=== PATIENT | female | born 1985 | race Caucasian/White ===

== ENCOUNTER 2016-05-12 08:44 | Emergency (ER) | payer OTHER ==
--- NOTE | 2016-05-12 08:54 | ED ---
Abdominal Pain HPI - General Stated Complaint: Abd Pain Time Seen by Provider: 05/12/16 08:49 Source: patient, EMS, RN notes reviewed Mode of arrival: EMS Limitations: no limitations - History of Present Illness Initial Comments: 31-year-old female presents emergency Department with chief complaint of abdominal pain. Patient is brought to emergency department via EMS. Patient was given 25 mics of fentanyl prior arrival. Patient states she has left-sided abdominal pain. Patient states she's had a prior cholecystectomy. Patient denies any chance . Denies any dysuria, hematuria. Patient states that nothing to suspect pain feel better. States it's worse she presses on the area. Patient has no history of colitis, IBS or IBD or diverticulitis. Patient denies any melena or hematochezia. Denies hematemesis coffee-ground - Related Data Home Medications Medication Instructions Recorded Confirmed Acetaminophen Tab [Tylenol Tab] 650 mg PO Q4H PRN 05/12/16 05/12/16 Allergies Allergy/AdvReac Type Severity Reaction Status Date / Time morphine AdvReac Intermediate Rash/Hives Verified 05/12/16 08:58 Review of Systems ROS Statement: Those systems with pertinent positive or pertinent negative responses have been documented in the HPI. ROS Other: All systems not noted in ROS Statement are negative. Past Medical History Additional Past Medical History / Comment(s): Other HX: Hep C, sciatica, MRSA left arm 2014, heroin abuse History of Any Multi-Drug Resistant Organisms: MRSA Date of last positivie culture/infection: 05/06/2014 MDRO Source:: Left Elbow Past Surgical History: Cholecystectomy Past Anesthesia/Blood Transfusion Reactions: No Reported Reaction Additional Past Anesthesia/Blood Transfusion Reaction / Comment(s): Pt states she has never recieved blood. Past Psychological History: Anxiety, Depression Additional Psychological History / Comment(s): PT. ADMITS TO BEING DEPRESSED, DEINES ANY SUICIDAL IDEATIONS Smoking Status: Current every day smoker Past Alcohol Use History: None Reported Additional Past Alcohol Use History / Comment(s): Pt lives alone in an apartment. She states she is normally self-sufficient. 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 Past Drug Use History: Heroin, IV Drug Use, Marijuana, Methamphetamine, Opiates Additional Drug Use History / Comment(s): PT. DENIED DRUG USE TO ME WHEN I ASKED DURING HER ASSESSMENT, HOWEVER, PT. TESTED POSITIVE FOR OPIATES, BARBITUATES, AMPHETAMINES, METHAMPHETAMINES, AND MARIJUANA - Past Family History Father Additional Family Medical History / Comment(s): Father is an alcoholic. Mother Additional Family Medical History / Comment(s): Mother is an alcoholic General Exam General appearance: alert, in no apparent distress Head exam: Present: atraumatic, normocephalic, normal inspection Respiratory exam: Present: normal lung sounds bilaterally. Absent: respiratory distress, wheezes, rales, rhonchi, stridor Cardiovascular Exam: Present: regular rate, normal rhythm, normal heart sounds. Absent: systolic murmur, diastolic murmur, rubs, gallop, clicks GI/Abdominal exam: Present: soft, tenderness (Mild to moderate tenderness left side of the abdomen), normal bowel sounds. Absent: distended, guarding, rebound , rigid Back exam: Absent: CVA tenderness (R), CVA tenderness (L) Skin exam: Present: warm, dry, intact, normal color. Absent: rash Course Vital Signs 05/12/16 08:51 Temperature 98.1 F Pulse Rate 44 L Respiratory 14 Rate Blood Pressure 119/77 O2 Sat by Pulse 97 Oximetry Medical Decision Making - Medical Decision Making 31-year-old female presented for abdominal pain. Patient is requesting to leave AGAINST MEDICAL ADVICE after receiving her pain medication. Patient was given Toradol. Patient advised that she may have a serious medical condition and she still wants to leave - Lab Data Result diagrams: 05/12/16 09:00 Lab Results 05/12/16 05/12/16 05/12/16 Range/Units 09:00 09:00 09:00 WBC 6.0 (3.8-10.6) k/uL RBC 5.24 (3.80-5.40) m/uL Hgb 14.8 (11.4-16.0) gm/dL Hct 44.9 (34.0-46.0) % MCV 85.7 (80.0-100.0) fL MCH 28.2 (25.0-35.0) pg MCHC 33.0 (31.0-37.0) g/dL RDW 14.9 (11.5-15.5) % Plt Count 221 (150-450) k/uL Neutrophils % 78 % Lymphocytes % 14 % Monocytes % 4 % Eosinophils % 1 % Basophils % 0 % Neutrophils # 4.7 (1.3-7.7) k/uL Lymphocytes # 0.8 L (1.0-4.8) k/uL Monocytes # 0.3 (0-1.0) k/uL Eosinophils # 0.1 (0-0.7) k/uL Basophils # 0.0 (0-0.2) k/uL Urine Color Yellow Urine Appearance Turbid H (Clear) Urine pH 8.5 H (5.0-8.0) Ur Specific [place] 1.024 (1.001-1.035) Urine Protein 2+ H (Negative) Urine Glucose (UA) Negative (Negative) Urine Ketones 1+ H (Negative) Urine Blood Negative (Negative) Urine Nitrate Negative (Negative) Urine Bilirubin Negative (Negative) Urine Urobilinogen 6.0 (<2.0) mg/dL Ur Leukocyte Esterase Negative (Negative) Urine WBC 3 (0-5) /hpf Ur Squamous Epith Cells 6 H (0-4) /hpf Amorphous Sediment Few H (None) /hpf Urine Mucus Moderate H (None) /hpf Urine HCG, Qual Not Detected (Not Detectd) Disposition Clinical Impression: Abdominal pain Disposition: Left Against Medical Advice
[2016-05-12 08:57] VITALS: TEMP 98.1
[2016-05-12] MEDS: SODIUM CHLORIDE 0.9% 1,000 ML IV STA (09:04)
[2016-05-12 09:08] LABS: Basophils % (A) 0 %; CH 28.2; Eosinophils # (A) 0.1 k/uL (0-0.7); Eosinophils % (A) 1 %; HCT 44.9 % (34.0-46.0); HDW 3.12; HGB 14.8 gm/dL (11.4-16.0); Luc # (Auto) 0.11; Luc % (Auto) 2; Lymphocytes # (A) 0.8 k/uL (1.0-4.8); Lymphocytes % (A) 14 %; MCH 28.2 pg (25.0-35.0); MCV 85.7 fL (80.0-100.0); Mean Platelet Volume 9.6; Monocytes # (A) 0.3 k/uL (0-1.0); Monocytes % (A) 4 %; Neutrophils # (A) 4.7 k/uL (1.3-7.7); Neutrophils % (A) 78 %; RBC 5.24 m/uL (3.80-5.40); RDW 14.9 % (11.5-15.5); WBC (Perox) 6.06
[2016-05-12 09:14] LABS: Amorphous Sediment,Urine Few /hpf; Appearance,Urine Turbid (Clear); Bilirubin,Urine Negative (Negative); Glucose,Urine (UA) Negative (Negative); Ketones,Urine 1+ (Negative); Leukocyte Esterase,Urine Negative (Negative); Mucus,Urine Moderate /hpf; Nitrite,Urine Negative (Negative); PH, Urine 8.5 (5.0-8.0); Particle Count 28634; Protein,Urine 2+ (Negative); Specific Gravity,Urine 1.024 (1.001-1.035); Squamous Epithelial Cell,Urine 6 /hpf (0-4); UA Billing (MACRO vs. MICRO) MICRO; WBC,Urine 3 /hpf (0-5)
[2016-05-12] MEDS: KETOROLAC 30 MG/ML 1 ML VIAL IVP STA (09:17)
[2016-05-12 09:26] VITALS: BP 120/72; PULSE 74; RESP 17
== END 2016-05-12 09:25 | disposition left against medical advice (07) ==
LOC: EC 08:44
DX: R10.9 Unspecified abdominal pain (principal); F17.200 Nicotine dependence, unspecified, uncomplicated; F11.90 Opioid use, unspecified, uncomplicated; F12.90 Cannabis use, unspecified, uncomplicated; F15.90 Other stimulant use, unspecified, uncomplicated; F13.90 Sedative, hypnotic, or anxiolytic use, unspecified, uncomplicated; Z88.5 Allergy status to narcotic agent
CPT/HCPCS: 99284; 96374; 85025; 81001; 81025; J1885

== ENCOUNTER 2016-05-30 19:33 | Emergency (ER) | payer OTHER ==
[2016-05-30 19:43] VITALS: BP 98/53; PULSE 68; RESP 16; TEMP 97.6
[2016-05-30] MEDS ORDERED: ONDANSETRON 4 MG/2 ML VIAL IVP STA (20:04)
[2016-05-30] MEDS ORDERED: SODIUM CHLORIDE 0.9% 1,000 ML IV ONE (20:04)
[2016-05-30] MEDS ORDERED: KETOROLAC 30 MG/ML 1 ML VIAL IVP STA (20:04)
--- NOTE | 2016-05-30 20:07 | ED ---
General Adult HPI - General Chief complaint: Nausea/Vomiting/Diarrhea Stated complaint: abd pain Time Seen by Provider: 05/30/16 19:49 Source: patient, EMS, RN notes reviewed Mode of arrival: ambulatory - History of Present Illness Initial comments: Patient is a 31-year-old [employer] chief complaint of 1 afternoon of her tractable vomiting. Patient reports that other coworkers have had similar symptoms. Patient reports that she had be seen in the emergency room in order to get a work note. Patient reports that she has some left-sided abdominal pain. She denies any sick past medical history. She states that she just finished her last menstrual period today. She states that she's had no diarrhea, fever or chills. She works that she's not been able old any fluid down. She denies any dysuria, hematuria or vaginal discharge. - Related Data Previous Rx's Medication Instructions Recorded Dicyclomine [Bentyl] 10 mg PO TID #12 capsule 05/30/16 Ondansetron [Zofran] 4 mg PO Q8HR PRN #8 tab 05/30/16 Allergies Allergy/AdvReac Type Severity Reaction Status Date / Time morphine AdvReac Intermediate Rash/Hives Verified 05/30/16 19:59 Review of Systems ROS Statement: Those systems with pertinent positive or pertinent negative responses have been documented in the HPI. ROS Other: All systems not noted in ROS Statement are negative. Past Medical History Past Medical History: No Reported History Additional Past Medical History / Comment(s): Other HX: Hep C, sciatica, MRSA left arm 2014, heroin abuse History of Any Multi-Drug Resistant Organisms: MRSA Date of last positivie culture/infection: 05/06/2014 MDRO Source:: Left Elbow Past Surgical History: Cholecystectomy Past Anesthesia/Blood Transfusion Reactions: No Reported Reaction Additional Past Anesthesia/Blood Transfusion Reaction / Comment(s): Pt states she has never recieved blood. Past Psychological History: Anxiety, Depression Additional Psychological History / Comment(s): PT. ADMITS TO BEING DEPRESSED, DEINES ANY SUICIDAL IDEATIONS Smoking Status: Current every day smoker Past Alcohol Use History: None Reported Additional Past Alcohol Use History / Comment(s): Pt lives alone in an apartment. She states she is normally self-sufficient. 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 Past Drug Use History: Heroin, IV Drug Use, Marijuana, Methamphetamine, Opiates Additional Drug Use History / Comment(s): PT. DENIED DRUG USE TO ME WHEN I ASKED DURING HER ASSESSMENT, HOWEVER, PT. TESTED POSITIVE FOR OPIATES, BARBITUATES, AMPHETAMINES, METHAMPHETAMINES, AND MARIJUANA - Past Family History Father Additional Family Medical History / Comment(s): Father is an alcoholic. Mother Additional Family Medical History / Comment(s): Mother is an alcoholic General Exam - General Exam Comments Initial Comments: Dia is a well-appearing 31-year-old female. She is not could be in any acute distress. General appearance: alert, in no apparent distress Head exam: Present: atraumatic, normocephalic, normal inspection Eye exam: Present: normal appearance, PERRL, EOMI. Absent: scleral icterus, conjunctival injection, periorbital swelling ENT exam: Present: normal exam, mucous membranes moist Neck exam: Present: normal inspection. Absent: tenderness, meningismus, lymphadenopathy Respiratory exam: Present: normal lung sounds bilaterally. Absent: respiratory distress, wheezes, rales, rhonchi, stridor Cardiovascular Exam: Present: regular rate, normal rhythm, normal heart sounds. Absent: systolic murmur, diastolic murmur, rubs, gallop, clicks GI/Abdominal exam: Present: soft, tenderness (Left upper quadrant tenderness.), normal bowel sounds. Absent: distended, guarding, rebound, rigid Extremities exam: Present: normal inspection, full ROM, normal capillary refill. Absent: tenderness, pedal edema, joint swelling, calf tenderness Back exam: Present: normal inspection, full ROM Neurological exam: Present: alert, oriented X3, CN II-XII intact Psychiatric exam: Present: normal affect, normal mood Skin exam: Present: warm, dry, intact, normal color. Absent: rash Course Vital Signs 05/30/16 19:39 Temperature 97.6 F Pulse Rate 68 Respiratory 16 Rate Blood Pressure 98/53 O2 Sat by Pulse 96 Oximetry Medical Decision Making - Medical Decision Making Patient is a 31 year old woman arriving via EMS with left upper abdominal pain and vomiting for one afternoon. Patient given nasuea medication and IV fluids. Labs are normal. KUB is normal, no signs of ileus or bowel obstruction. Patient pain was managed with toradol, and zofran. Patient will be discharged home with nausea medication. Patient likely has viral gastrenteritis, as other coworkers have it. She was given a note for work. Return parameters discussed. - Lab Data Result diagrams: 05/30/16 20:15 05/30/16 20:15 Lab Results 05/30/16 05/30/16 Range/Units 20:15 20:15 WBC 7.4 (3.8-10.6) k/uL RBC 5.03 (3.80-5.40) m/uL Hgb 14.1 (11.4-16.0) gm/dL Hct 43.5 (34.0-46.0) % MCV 86.5 (80.0-100.0) fL MCH 28.1 (25.0-35.0) pg MCHC 32.5 (31.0-37.0) g/dL RDW 14.8 (11.5-15.5) % Plt Count 191 (150-450) k/uL Neutrophils % 72 % Lymphocytes % 19 % Monocytes % 6 % Eosinophils % 1 % Basophils % 0 % Neutrophils # 5.3 (1.3-7.7) k/uL Lymphocytes # 1.4 (1.0-4.8) k/uL Monocytes # 0.4 (0-1.0) k/uL Eosinophils # 0.1 (0-0.7) k/uL Basophils # 0.0 (0-0.2) k/uL Sodium 140 (137-145) mmol/L Potassium 4.3 (3.5-5.1) mmol/L Chloride 107 (98-107) mmol/L Carbon Dioxide 24 (22-30) mmol/L Anion Gap 9 mmol/L BUN 7 (7-17) mg/dL Creatinine 0.40 L (0.52-1.04) mg/dL Est GFR (MDRD) Af Amer >60 (>60 ml/min/1.73 sqM) Est GFR (MDRD) Non-Af >60 (>60 ml/min/1.73 sqM) Glucose 96 (74-99) mg/dL Calcium 9.0 (8.4-10.2) mg/dL Total Bilirubin 0.7 (0.2-1.3) mg/dL AST 26 (14-36) U/L ALT 37 (9-52) U/L Alkaline Phosphatase 57 (38-126) U/L Total Protein 7.2 (6.3-8.2) g/dL Albumin 4.0 (3.5-5.0) g/dL Amylase <30 L (30-110) U/L Lipase 35 (23-300) U/L - Radiology Data Radiology results: report reviewed KUB is negative for any acute results. Disposition Clinical Impression: Nausea & vomiting Disposition: HOME SELF-CARE Condition: Good Instructions: Acute Nausea and Vomiting (ED) Additional Instructions: Patient started to rest, increase fluids and take nausea medication as directed. Return to the EC if any alarming signs or symptoms occur. Follow-up with primary care provider as well. Prescriptions: Dicyclomine [Bentyl] 10 mg PO TID #12 capsule Ondansetron [Zofran] 4 mg PO Q8HR PRN #8 tab PRN Reason: Nausea And Vomiting Referrals: None,Stated [Primary Care Provider] - 1-2 days Time of Disposition: 21:26
--- NOTE | 2016-05-30 20:30 | XR ---
EXAMINATION TYPE: XR KUB DATE OF EXAM: 05/30/2016 8:24 PM COMPARISON: 05/15/2015 HISTORY: Abdominal pain TECHNIQUE: 2 views FINDINGS: There is no sign of intestinal obstruction or pneumoperitoneum. There are clips from cholec ystectomy. Lung bases are clear. There are no pathologic calcifications over the kidneys. Fecal patte rn is normal. IMPRESSION: Nonacute abdomen. No change.
[2016-05-30 20:39] LABS: Basophils % (A) 0 %; CH 28.9; CHCM 33.6; Eosinophils # (A) 0.1 k/uL (0-0.7); Eosinophils % (A) 1 %; HCT 43.5 % (34.0-46.0); HDW 2.65; HGB 14.1 gm/dL (11.4-16.0); Luc # (Auto) 0.15; Luc % (Auto) 2; Lymphocytes # (A) 1.4 k/uL (1.0-4.8); Lymphocytes % (A) 19 %; MCH 28.1 pg (25.0-35.0); MCHC 32.5 g/dL (31.0-37.0); MCV 86.5 fL (80.0-100.0); Mean Platelet Volume 9.9; Monocytes # (A) 0.4 k/uL (0-1.0); Monocytes % (A) 6 %; Neutrophils # (A) 5.3 k/uL (1.3-7.7); Neutrophils % (A) 72 %; RBC 5.03 m/uL (3.80-5.40); RDW 14.8 % (11.5-15.5); WBC 7.4 k/uL (3.8-10.6); WBC (Perox) 7.46
[2016-05-30 20:55] LABS: ALT 37 U/L (9-52); AST 26 U/L (14-36); Alkaline Phosphatase 57 U/L (38-126); Amylase <30 U/L (30-110); Anion Gap 9 mmol/L; Blood Urea Nitrogen 7 mg/dL (7-17); Carbon Dioxide 24 mmol/L (22-30); Chloride 107 mmol/L (98-107); Glucose 96 mg/dL (74-99); Non-African American GFR(MDRD) >60 (>60 ml/min/1.73 sqM); Sodium 140 mmol/L (137-145); Total Bilirubin 0.7 mg/dL (0.2-1.3); Total Protein 7.2 g/dL (6.3-8.2)
[2016-05-30 21:07] LABS: Potassium 4.3 mmol/L (3.5-5.1)
[2016-05-30] MEDS ORDERED: ACETAMINOPHEN IV (For NPO) 1,000 MG in EMPTY BAG 1 BAG IVPB STA (21:22)
[2016-05-30] MEDS ORDERED: DICYCLOMINE 20 MG TAB PO STA (21:22)
== END 2016-05-30 22:32 | disposition home or self-care (01) ==
LOC: EC 19:33
DX: R11.2 Nausea with vomiting, unspecified (principal); R10.12 Left upper quadrant pain; F17.200 Nicotine dependence, unspecified, uncomplicated; Z88.5 Allergy status to narcotic agent; Z86.14 Personal history of Methicillin resistant Staphylococcus aureus infection
CPT/HCPCS: 99284; 96374; 96375; 36415; 80053; 82150; 83690; 85025; 74000; J2405; J1885

== ENCOUNTER 2016-09-13 18:09 | Emergency (ER) | payer OTHER ==
[2016-09-13 18:21] VITALS: BP 116/55; PULSE 108; RESP 20; TEMP 98
[2016-09-13] MEDS ORDERED: ONDANSETRON 4 MG ODT STARTER PACK 2 TAB BTL PO STA (19:43)
--- NOTE | 2016-09-13 19:47 | ED ---
Abdominal Pain HPI - General Chief Complaint: Abdominal Pain Stated Complaint: Vomiting Time Seen by Provider: 09/13/16 19:37 Source: patient, RN notes reviewed, old records reviewed Mode of arrival: ambulatory Limitations: no limitations - History of Present Illness Initial Comments: This is a 31-year-old female presents emergency Department with chief complaint of vomiting in the couple episodes of diarrhea yesterday. She reports that everyone in her household have similar symptoms. She reports that she is feeling somewhat better today. She reports that she is here because she is a [employer] her job and needs a note for work. Patient states that she has no specific abdominal pain denies any fever or chills. Denies any chest pain shortness of breath, blood in her stools or blood in her vomit. She reports last time she vomited was approximately 6 hours ago. She reports that she has been able to tolerate some food since then. She states that she's had a history of cholecystectomy. No other significant injury, her past medical history. Patient does have history of marijuana and heroin use. - Related Data Previous Rx's Medication Instructions Recorded Dicyclomine [Bentyl] 10 mg PO TID #12 capsule 05/30/16 Ondansetron [Zofran] 4 mg PO Q8HR PRN #8 tab 05/30/16 Ondansetron Odt [Zofran Odt] 4 mg PO Q8HR PRN #12 tab 09/13/16 Allergies Allergy/AdvReac Type Severity Reaction Status Date / Time morphine AdvReac Intermediate Rash/Hives Verified 05/30/16 19:59 Review of Systems ROS Statement: Those systems with pertinent positive or pertinent negative responses have been documented in the HPI. ROS Other: All systems not noted in ROS Statement are negative. Past Medical History Past Medical History: No Reported History Additional Past Medical History / Comment(s): Other HX: Hep C, sciatica, MRSA left arm 2014, heroin abuse History of Any Multi-Drug Resistant Organisms: MRSA Date of last positivie culture/infection: 05/06/2014 MDRO Source:: Left Elbow Past Surgical History: Cholecystectomy Past Anesthesia/Blood Transfusion Reactions: No Reported Reaction Additional Past Anesthesia/Blood Transfusion Reaction / Comment(s): Pt states she has never recieved blood. Past Psychological History: Anxiety, Depression Additional Psychological History / Comment(s): PT. ADMITS TO BEING DEPRESSED, DEINES ANY SUICIDAL IDEATIONS Smoking Status: Current every day smoker Past Alcohol Use History: None Reported Additional Past Alcohol Use History / Comment(s): Pt lives alone in an apartment. She states she is normally self-sufficient. 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 Past Drug Use History: Heroin, IV Drug Use, Marijuana, Methamphetamine, Opiates Additional Drug Use History / Comment(s): PT. DENIED DRUG USE TO ME WHEN I ASKED DURING HER ASSESSMENT, HOWEVER, PT. TESTED POSITIVE FOR OPIATES, BARBITUATES, AMPHETAMINES, METHAMPHETAMINES, AND MARIJUANA - Past Family History Father Additional Family Medical History / Comment(s): Father is an alcoholic. Mother Additional Family Medical History / Comment(s): Mother is an alcoholic General Exam - General Exam Comments Initial Comments: Well-appearing 31-year-old female. No acute distress. Limitations: no limitations General appearance: alert, in no apparent distress Head exam: Present: atraumatic, normocephalic, normal inspection Eye exam: Present: normal appearance, PERRL, EOMI. Absent: scleral icterus, conjunctival injection, periorbital swelling ENT exam: Present: normal exam, mucous membranes moist Neck exam: Present: normal inspection. Absent: tenderness, meningismus, lymphadenopathy Respiratory exam: Present: normal lung sounds bilaterally. Absent: respiratory distress, wheezes, rales, rhonchi, stridor Cardiovascular Exam: Present: regular rate, normal rhythm, normal heart sounds. Absent: systolic murmur, diastolic murmur, rubs, gallop, clicks GI/Abdominal exam: Present: soft, normal bowel sounds. Absent: distended, tenderness, guarding, rebound, rigid Extremities exam: Present: normal inspection, full ROM, normal capillary refill. Absent: tenderness, pedal edema, joint swelling, calf tenderness Back exam: Present: normal inspection Neurological exam: Present: alert, oriented X3, CN II-XII intact Psychiatric exam: Present: normal affect, normal mood Skin exam: Present: warm, dry, intact, normal color. Absent: rash Course Vital Signs 09/13/16 18:20 Temperature 98.0 F Pulse Rate 108 H Respiratory 20 Rate Blood Pressure 116/55 O2 Sat by Pulse 99 Oximetry Medical Decision Making - Medical Decision Making This is a 31-year-old female presenting to emergency Department chief complaint of multiple toes of vomiting yesterday and today as well as a couple episodes of diarrhea. She reports that her whole family has similar symptoms. I discussed with the patient had like to further evaluate her symptoms and give her IV fluids and lab work. Patient reports that she does not want this and refuses it. Patient reports that she does want to try some nausea medication and to go home. She is concerned that she might was her job if she does admit note for work. Patient only a note for work for today and tomorrow. Patient understands treatment plan will comply. Return parameters were discussed. Disposition Clinical Impression: Gastroenteritis Disposition: HOME SELF-CARE Condition: Good Instructions: Gastroenteritis (ED) Additional Instructions: Patient advised to rest, increase fluids. Take nausea medication as prescribed. Follow-up with her primary care provider Or 3 days or return to emergency department if any alarming signs or symptoms occur. Prescriptions: Ondansetron Odt [Zofran Odt] 4 mg PO Q8HR PRN #12 tab PRN Reason: Nausea Referrals: Eloisa Sutton MD [STAFF PHYSICIAN] - 1-2 days Time of Disposition: 19:46
== END 2016-09-13 20:04 | disposition home or self-care (01) ==
LOC: EC 18:09
DX: K52.9 Noninfective gastroenteritis and colitis, unspecified (principal); F17.200 Nicotine dependence, unspecified, uncomplicated; Z88.5 Allergy status to narcotic agent; Z90.49 Acquired absence of other specified parts of digestive tract
CPT/HCPCS: 99284; S0119

== ENCOUNTER 2016-09-21 14:56 | Emergency (ER) | payer OTHER ==
[2016-09-21 15:04] VITALS: BP 133/93; PULSE 113; RESP 18; TEMP 97.9
--- NOTE | 2016-09-21 15:08 | ED ---
General Adult HPI - General Chief complaint: Overdose Stated complaint: Over dose Time Seen by Provider: 09/21/16 15:00 Source: patient, EMS, RN notes reviewed Mode of arrival: EMS Limitations: no limitations - History of Present Illness Initial comments: this is a 31-year-old female presents emergency department after being found by someone unresponsive. EMS arrived look like the patient was doing heroin they gave her Narcan she immediately became awake and alert and oriented 3. Patient didn't want to be seen but she agreed to talking to me and it could be evaluated. Patient states she did heroin that had some been only extend and she feels completely fine now patient is alert and oriented 3 she has no points pain no complaints of any redness or lesions from shooting up. Patient denies any recent fevers patient denies any difficulty breathing shortness of breath patient denies any headache patient denies numbness weeks. Patient denies abdominal pain patient denies nausea vomiting diarrhea. - Related Data Previous Rx's Medication Instructions Recorded Dicyclomine [Bentyl] 10 mg PO TID #12 capsule 05/30/16 Ondansetron [Zofran] 4 mg PO Q8HR PRN #8 tab 05/30/16 Ondansetron Odt [Zofran Odt] 4 mg PO Q8HR PRN #12 tab 09/13/16 Allergies Allergy/AdvReac Type Severity Reaction Status Date / Time morphine AdvReac Intermediate Rash/Hives Verified 09/21/16 15:03 Review of Systems ROS Statement: Those systems with pertinent positive or pertinent negative responses have been documented in the HPI. ROS Other: All systems not noted in ROS Statement are negative. Past Medical History Past Medical History: No Reported History Additional Past Medical History / Comment(s): Other HX: Hep C, sciatica, MRSA left arm 2014, heroin abuse History of Any Multi-Drug Resistant Organisms: MRSA Date of last positivie culture/infection: 05/06/2014 MDRO Source:: Left Elbow Past Surgical History: Cholecystectomy Past Anesthesia/Blood Transfusion Reactions: No Reported Reaction Additional Past Anesthesia/Blood Transfusion Reaction / Comment(s): Pt states she has never recieved blood. Past Psychological History: Anxiety, Depression Additional Psychological History / Comment(s): PT. ADMITS TO BEING DEPRESSED, DEINES ANY SUICIDAL IDEATIONS Smoking Status: Current every day smoker Past Alcohol Use History: None Reported Additional Past Alcohol Use History / Comment(s): Pt lives alone in an apartment. She states she is normally self-sufficient. 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 Past Drug Use History: Heroin, IV Drug Use, Marijuana, Methamphetamine, Opiates Additional Drug Use History / Comment(s): PT. DENIED DRUG USE TO ME WHEN I ASKED DURING HER ASSESSMENT, HOWEVER, PT. TESTED POSITIVE FOR OPIATES, BARBITUATES, AMPHETAMINES, METHAMPHETAMINES, AND MARIJUANA - Past Family History Father Additional Family Medical History / Comment(s): Father is an alcoholic. Mother Additional Family Medical History / Comment(s): Mother is an alcoholic General Exam - General Exam Comments Initial Comments: GENERAL: Patient is well-developed and well-nourished. Patient is nontoxic and well- hydrated and is in no acute distress. ENT: Neck is soft and supple. No significant lymphadenopathy is noted. Oropharynx is clear. Moist mucous membranes. Neck has full range of motion without eliciting any pain. EYES: The sclera were anicteric and conjunctiva were pink and moist. Extraocular movements were intact and pupils were equal round and reactive to light. Eyelids were unremarkable. PULMONARY: Unlabored respirations. Good breath sounds bilaterally. No audible rales rhonchi or wheezing was noted. CARDIOVASCULAR: There is a regular rate and rhythm without any murmurs gallops or rubs. ABDOMEN: Soft and nontender with normal bowel sounds. SKIN: Patient has multiple scars on both arms from injecting none of which look infected at this time. NEUROLOGIC: Patient is alert and oriented x3. Cranial nerves II through XII are grossly intact. Motor and sensory are also intact. Normal speech, volume and content. Symmetrical smile. MUSCULOSKELETAL: Normal extremities with adequate strength and full range of motion. LYMPHATICS: No significant lymphadenopathy is noted PSYCHIATRIC: Normal psychiatric evaluation. Limitations: no limitations Course Vital Signs 09/21/16 15:01 Temperature 97.9 F Pulse Rate 113 H Respiratory 18 Rate Blood Pressure 133/93 O2 Sat by Pulse 98 Oximetry Medical Decision Making - Medical Decision Making I recommended the patient stay in the emergency department for a few hours to be evaluated and make sure that whatever drugs she took did not have long lasting effects. Patient refused she signed an AMA I told the patient the risks she still refused. Disposition Clinical Impression: Heroin abuse, Narcotic overdose Disposition: Left Against Medical Advice Referrals: None,Stated [Primary Care Provider] - 1-2 days Time of Disposition: 15:08
== END 2016-09-21 15:18 | disposition left against medical advice (07) ==
LOC: EC 14:56
DX: T40.601A Poisoning by unspecified narcotics, accidental (unintentional), initial encounter (principal); F11.10 Opioid abuse, uncomplicated; F17.200 Nicotine dependence, unspecified, uncomplicated; Z88.5 Allergy status to narcotic agent
CPT/HCPCS: 99284

== ENCOUNTER 2016-10-24 23:05 | Inpatient (IN) | payer MEDICAID, OTHER ==
--- NOTE | 2016-10-24 23:36 | ED ---
Psych HPI - General Chief Complaint: Psychiatric Symptoms Stated Complaint: suicidal Time Seen by Provider: 10/24/16 23:19 Source: patient Mode of arrival: ambulatory - History of Present Illness Initial Comments: This patient is a 31-year-old woman who presents to be evaluated for suicidal ideation. The patient states that she recently had a breakup, and that she also recently lost her children. Her mood has been worsening and now she is having thoughts of suicide. Patient denies history of previous psychiatric care. She denies taking any action tian SAM Complaint: suicidal ideation, feels depressed -: days(s) Associated Psychiatric Symptoms: suicidal ideation History of same: No Quality: getting worse Improves With: none Worsens With: none - Related Data Allergies Allergy/AdvReac Type Severity Reaction Status Date / Time morphine Allergy Unknown Rash/Hives Verified 10/24/16 23:29 Review of Systems ROS Statement: Those systems with pertinent positive or pertinent negative responses have been documented in the HPI. ROS Other: All systems not noted in ROS Statement are negative. Constitutional: Denies: fever, chills Eyes: Denies: vision change Respiratory: Denies: cough, dyspnea Cardiovascular: Denies: chest pain, syncope Gastrointestinal: Denies: abdominal pain, vomiting, diarrhea Genitourinary: Denies: dysuria, hematuria Musculoskeletal: Denies: back pain Skin: Denies: lesions Neurological: Denies: headache Psychiatric: Reports: depression, suicidal thoughts. Denies: auditory hallucinations, visual hallucinations, homicidal thoughts Past Medical History Past Medical History: No Reported History Additional Past Medical History / Comment(s): Other HX: Hep C, sciatica, MRSA left arm 2014, heroin abuse History of Any Multi-Drug Resistant Organisms: MRSA Date of last positivie culture/infection: 05/06/2014 MDRO Source:: Left Elbow Past Surgical History: Cholecystectomy Additional Past Surgical History / Comment(s): needle removed from right arm 2012 Past Anesthesia/Blood Transfusion Reactions: No Reported Reaction Additional Past Anesthesia/Blood Transfusion Reaction / Comment(s): Pt states she has never recieved blood. Past Psychological History: Anxiety, Depression Smoking Status: Current every day smoker Past Alcohol Use History: None Reported Past Drug Use History: Heroin, IV Drug Use, Marijuana, Methamphetamine, Opiates - Past Family History Father Additional Family Medical History / Comment(s): Father is an alcoholic. Mother Additional Family Medical History / Comment(s): Mother is an alcoholic General Exam Limitations: no limitations General appearance: alert, in no apparent distress, anxious Head exam: Present: atraumatic, normocephalic Eye exam: Present: normal appearance. Absent: scleral icterus, conjunctival injection Respiratory exam: Present: normal lung sounds bilaterally. Absent: respiratory distress, wheezes, rales, rhonchi, stridor Cardiovascular Exam: Present: regular rate, normal rhythm, normal heart sounds. Absent: systolic murmur, diastolic murmur, rubs, gallop GI/Abdominal exam: Present: soft. Absent: distended, tenderness, guarding, rebound, rigid Extremities exam: Present: normal inspection, normal capillary refill Neurological exam: Present: alert, normal gait Psychiatric exam: Present: depressed, anxious, suicidal ideation. Absent: flat affect, manic, homicidal ideation Skin exam: Present: warm, dry, intact, normal color. Absent: rash Course Vital Signs 10/24/16 23:07 Temperature 97.7 F Pulse Rate 85 Respiratory 16 Rate Blood Pressure 119/71 O2 Sat by Pulse 98 Oximetry Disposition Referrals: Rosamaria Trujillo MD [Primary Care Provider] - 1-2 days
[2016-10-25] MEDS ORDERED: METHADONE 10 MG TAB PO STA (00:43)
[2016-10-25] MEDS ORDERED: ACETAMINOPHEN TAB 325 MG TAB PO PRN (02:53)
[2016-10-25] MEDS ORDERED: MAGNESIUM HYDROXIDE 2,400 MG/10 ML CUP PO PRN (02:53)
[2016-10-25] MEDS ORDERED: MAG HYDROX/AL HYDROX/SIMETH 30 ML CUP PO PRN (02:53)
[2016-10-25] MEDS ORDERED: ZIPRASIDONE 20 MG VIAL IM PRN (02:53)
[2016-10-25] MEDS ORDERED: LOPERAMIDE 2 MG CAP PO PRN (02:56)
[2016-10-25 03:05] LABS: Appearance,Urine Cloudy (Clear); Bilirubin,Urine Negative (Negative); Calcium Oxalate Crystals,Urine Few /hpf; Glucose,Urine (UA) Negative (Negative); Ketones,Urine Negative (Negative); Leukocyte Esterase,Urine Negative (Negative); Mucus,Urine Few /hpf; Nitrite,Urine Negative (Negative); Particle Count 4619; Protein,Urine Negative (Negative); RBC,Urine 76 /hpf (0-5); Specific Gravity,Urine 1.017 (1.001-1.035); Squamous Epithelial Cell,Urine 5 /hpf (0-4); UA Billing (MACRO vs. MICRO) MICRO; WBC,Urine 3 /hpf (0-5)
[2016-10-25 07:24] LABS: Basophils # (A) 0.1 k/uL (0-0.2); Basophils % (A) 1 %; CH 29.6; CHCM 34.2; Eosinophils # (A) 0.2 k/uL (0-0.7); Eosinophils % (A) 2 %; HCT 42.5 % (34.0-46.0); HDW 2.62; HGB 14.8 gm/dL (11.4-16.0); Luc # (Auto) 0.17; Luc % (Auto) 2; Lymphocytes # (A) 2.5 k/uL (1.0-4.8); Lymphocytes % (A) 30 %; MCH 30.3 pg (25.0-35.0); MCHC 34.7 g/dL (31.0-37.0); MCV 87.2 fL (80.0-100.0); Mean Platelet Volume 9.4; Monocytes # (A) 0.5 k/uL (0-1.0); Monocytes % (A) 6 %; Neutrophils # (A) 4.7 k/uL (1.3-7.7); Neutrophils % (A) 59 %; RBC 4.88 m/uL (3.80-5.40); RDW 13.4 % (11.5-15.5); WBC 8.1 k/uL (3.8-10.6)
[2016-10-25 07:39] LABS: ALT 20 U/L (9-52); AST 13 U/L (14-36); Alkaline Phosphatase 63 U/L (38-126); Anion Gap 8 mmol/L; Blood Urea Nitrogen 11 mg/dL (7-17); Calcium 9.1 mg/dL (8.4-10.2); Carbon Dioxide 23 mmol/L (22-30); Chloride 110 mmol/L (98-107); Glucose 96 mg/dL (74-99); Non-African American GFR(MDRD) >60 (>60 ml/min/1.73 sqM); Potassium 3.8 mmol/L (3.5-5.1); Sodium 141 mmol/L (137-145); Total Bilirubin 0.6 mg/dL (0.2-1.3); Total Protein 6.8 g/dL (6.3-8.2)
[2016-10-25] MEDS: NICOTINE 14MG/24HR PATCH TRANSDERM SCH (08:11)
--- NOTE | 2016-10-25 10:02 | P.HP ---
Psychiatric H&P - . H&P Date: 10/25/16 History & Physical: DATE OF SERVICE: 10/25/2016 IDENTIFYING DATA: This patient is a 31-year-old single female who was admitted to the mental health unit through emergency room. HISTORY OF PRESENT ILLNESS: The patient came to the emergency room complaining of suicidal ideation. Patient reported that if she was not admitted that she would go out and overdose on heroin. EPS nurse noted that she had a needle, and that she has a long history of heroin use. Patient reported that she had a recent breakup with her boyfriend which triggered the suicidal ideation. He is unhappy that she is using heroin again, he has stopped for 6 months, after senior care time. Today patient was lying in bed did not calm when she was overhead page, had to be encouraged to get out of bed. Patient states that she is not suicidal, that it was just a short period after finding out that her boyfriend broke up with her. She also has had a number of stressors including the loss of her children. Patient is known to the emergency room coming in with opiate overdose receiving Narcan then leaving AMA. Patient denies feeling depressed, anxious, or suicidal. Patient denies episodes of brynn or hypomania, denies thinking that she has super perla, denies hearing voices . She denies ever having any mental health treatment other than frequent admissions to rehab units for detox. Patient requests that she be discharged today. PAST PSYCHIATRIC HISTORY: Denies denies inpatient hospitalizations, denies outpatient care, denies ever seeing a psychiatrist. Reports she takes Xanax from her primary care provider and she uses it to help with opiate withdrawal. PAST MEDICAL HISTORY: Denies. States that she is taking gabapentin 800 mg 3 times a day, and Xanax. Patient informed that she had taken her last Xanax several days ago. ALLERGIES: Morphine. CHEMICAL DEPENDENCY HISTORY: Patient reports that she began using opiates at the age of 25, states that she had a 3 year period of sobriety from opiates when she was in a methadone program at [facility]. States now that she can no longer go back to [facility], she was just in there and left early. She would not quantify the number of rehabs that she's been in but on another note it appears that she's been in at least 10-15 times. FAMILY PSYCHIATRIC HISTORY: She denies any family history however notes that her father does not leave the house, and it's been that way for him many years. FAMILY CHEMICAL DEPENDENCY HISTORY: Patient denies. LEGAL HISTORY: Denies. SOCIAL HISTORY: Patient was raised by her mother and father, states she had a good childhood, states she does not have any brothers or sisters. States that she did not graduate from high school due to having her first child 14 years ago. States that she has 2 children age 14 and 7. She is able to visit her 14-year-old daughter who is in the custody of her biological father. She refuses to speak about her 7-year-old who she apparently cannot see. 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 She lives with her father who supports her. MENTAL STATUS EXAM: Patient alert and oriented 3, fair eye contact, fair groomed in street clothing. Speech normal volume, rate and production. Limited responses, brief one word answers. Coherent, logical and goal directed thought process. No BOSSMAN, no FOI. No TB/TW/ TI Denied auditory and visual hallucinations. Denied paranoid ideation, delusions or IOR. Memory grossly intact Cognition average Recalled [3/3 @0; 3/3@5min Mood neutral to euthymic, affect and full range decreased intensity, congruent with mood. Denies suicidal ideation, denies homicidal ideation. Insight none; Judgement impaired by her opiate dependence, but grossly intact . STRENGTHS: Has housing. WEAKNESSES: No insight, poor coping skills. IMPRESSIONS: 31-year-old female with at least a 6 year history of opiate use disorder, severe. Has had multiple ER visits with needing Narcan, and once awake and alert she is signing out AMA. Today there is no suicidal ideation which was the cause of her admission to [facility]. There is no evidence of depression anxiety, psychosis, brynn or hypomania. She is prescribed Xanax for unknown reason but she reports she will use Xanax when she is coming off of heroin Suicidal ideation Opioid use disorder, severe Psychosocial problems PLAN: Continue inpatient psychiatric admission. Suicide checks every 15 minutes. Patient only requests Xanax and gabapentin, will check to see if Emily is on her home medicines and will prescribe while she is here. No benzodiazepines. We'll discuss with hospice social worker as if there is any possibility of a Suboxone clinic/program that she would qualify for. Patient requests to go AMA, informed her we have up to 72 hours to complete our assessment before we either release her or consider a petition which is unlikely. Allergies Allergy/AdvReac Type Severity Reaction Status Date / Time morphine Allergy Unknown Rash/Hives Verified 10/25/16 03:06 Vital Signs Temp 97.5 F L 10/25/16 02:16 Pulse 69 10/25/16 08:14 Resp 16 10/25/16 08:14 BP 103/63 10/25/16 08:14 Pulse Ox 97 10/25/16 02:00 Intake & Output 10/24/16 10/25/16 10/25/16 18:59 06:59 18:59 Weight 51.256 kg Laboratory Last Values WBC 8.1 k/uL (3.8-10.6) 10/25/16 07:06 RBC 4.88 m/uL (3.80-5.40) 10/25/16 07:06 Hgb 14.8 gm/dL (11.4-16.0) 10/25/16 07:06 Hct 42.5 % (34.0-46.0) 10/25/16 07:06 MCV 87.2 fL (80.0-100.0) 10/25/16 07:06 MCH 30.3 pg (25.0-35.0) 10/25/16 07:06 MCHC 34.7 g/dL (31.0-37.0) 10/25/16 07:06 RDW 13.4 % (11.5-15.5) 10/25/16 07:06 Plt Count 185 k/uL (150-450) 10/25/16 07:06 Neutrophils % 59 % 10/25/16 07:06 Lymphocytes % 30 % 10/25/16 07:06 Monocytes % 6 % 10/25/16 07:06 Eosinophils % 2 % 10/25/16 07:06 Basophils % 1 % 10/25/16 07:06 Neutrophils # 4.7 k/uL (1.3-7.7) 10/25/16 07:06 Lymphocytes # 2.5 k/uL (1.0-4.8) 10/25/16 07:06 Monocytes # 0.5 k/uL (0-1.0) 10/25/16 07:06 Eosinophils # 0.2 k/uL (0-0.7) 10/25/16 07:06 Basophils # 0.1 k/uL (0-0.2) 10/25/16 07:06 Sodium 141 mmol/L (137-145) 10/25/16 07:06 Potassium 3.8 mmol/L (3.5-5.1) 10/25/16 07:06 Chloride 110 mmol/L (98-107) H 10/25/16 07:06 Carbon Dioxide 23 mmol/L (22-30) 10/25/16 07:06 Anion Gap 8 mmol/L 10/25/16 07:06 BUN 11 mg/dL (7-17) 10/25/16 07:06 Creatinine 0.54 mg/dL (0.52-1.04) 10/25/16 07:06 Est GFR (MDRD) Af Amer >60 (>60 ml/min/1.73 sqM) 10/25/16 07:06 Est GFR (MDRD) Non-Af >60 (>60 ml/min/1.73 sqM) 10/25/16 07:06 Glucose 96 mg/dL (74-99) 10/25/16 07:06 Calcium 9.1 mg/dL (8.4-10.2) 10/25/16 07:06 Total Bilirubin 0.6 mg/dL (0.2-1.3) 10/25/16 07:06 AST 13 U/L (14-36) L 10/25/16 07:06 ALT 20 U/L (9-52) 10/25/16 07:06 Alkaline Phosphatase 63 U/L (38-126) 10/25/16 07:06 Total Protein 6.8 g/dL (6.3-8.2) 10/25/16 07:06 Albumin 3.9 g/dL (3.5-5.0) 10/25/16 07:06 TSH 0.639 mIU/L (0.465-4.680) 10/25/16 07:06 Urine Color Yellow 10/24/16 23:53 Urine Appearance Cloudy (Clear) H 10/24/16 23:53 Urine pH 6.0 (5.0-8.0) 10/24/16 23:53 Ur Specific [place] 1.017 (1.001-1.035) 10/24/16 23:53 Urine Protein Negative (Negative) 10/24/16 23:53 Urine Glucose (UA) Negative (Negative) 10/24/16 23:53 Urine Ketones Negative (Negative) 10/24/16 23:53 Urine Blood Small (Negative) H 10/24/16 23:53 Urine Nitrite Negative (Negative) 10/24/16 23:53 Urine Bilirubin Negative (Negative) 10/24/16 23:53 Urine Urobilinogen 2.0 mg/dL (<2.0) 10/24/16 23:53 Ur Leukocyte Esterase Negative (Negative) 10/24/16 23:53 Urine RBC 76 /hpf (0-5) H 10/24/16 23:53 Urine WBC 3 /hpf (0-5) 10/24/16 23:53 Ur Squamous Epith Cells 5 /hpf (0-4) H 10/24/16 23:53 Calcium Oxalate Crystal Few /hpf (None) H 10/24/16 23:53 Urine Mucus Few /hpf (None) H 10/24/16 23:53 Urine HCG, Qual Not Detected (Not Detectd) 10/24/16 23:53 Urine Opiates Screen Detected (NotDetected) H 10/24/16 23:53 Ur Oxycodone Screen Not Detected (NotDetected) 10/24/16 23:53 Urine Methadone Screen Not Detected (NotDetected) 10/24/16 23:53 Ur Propoxyphene Screen Not Detected (NotDetected) 10/24/16 23:53 Ur Barbiturates Screen Detected (NotDetected) H 10/24/16 23:53 U Tricyclic Antidepress Not Detected (NotDetected) 10/24/16 23:53 Ur Phencyclidine Scrn Not Detected (NotDetected) 10/24/16 23:53 Ur Amphetamines Screen Not Detected (NotDetected) 10/24/16 23:53 U Methamphetamines Scrn Not Detected (NotDetected) 10/24/16 23:53 U Benzodiazepines Scrn Not Detected (NotDetected) 10/24/16 23:53 Urine Cocaine Screen Not Detected (NotDetected) 10/24/16 23:53 U Marijuana (THC) Screen Detected (NotDetected) H 10/24/16 23:53 10/25/16 09:31
[2016-10-25] MEDS: GABAPENTIN 400 MG CAP PO SCH ×3 (10:06→21:01)
--- NOTE | 2016-10-25 15:27 | P.MDCNMH ---
History of Present Illness H&P Date: 10/25/16 Chief Complaint: Depression, medical management This is a 31-year-old female who does not have a primary care physician. She has a past medical history of hepatitis C, scattered,, MRSA on the left arm, here when abuse as well as marijuana, F and phentermine abuse in the past. Patient states that she has been depressed and suicidal and took heroin yesterday as an overdose. Apparently patient lost parental rights for her son and her boyfriend left her. She states she uses here when because it helps her "stop thinking about stuff." Patient denies any significant wounds at this time. She denies any fever or chills, rashes, nausea or vomiting. 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 Urine drug screen detected opiates, barbiturates, marijuana. HCG was not detected, TSH was 0.639. Urinalysis was cloudy with blood without signs of infection. Patient has been admitted to the mental health unit. Review of Systems All systems: negative Constitutional: Denies chills, Denies fever Eyes: denies blurred vision, denies pain Ears, nose, mouth and throat: Denies headache, Denies sore throat Cardiovascular: Denies chest pain, Denies shortness of breath Respiratory: Denies cough Gastrointestinal: Denies abdominal pain, Denies diarrhea, Denies nausea, Denies vomiting Genitourinary: Denies dysuria, Denies hematuria Musculoskeletal: Denies myalgias Integumentary: Denies pruritus, Denies rash Neurological: Denies numbness, Denies weakness Psychiatric: Reports depression, Reports hopelessness, Reports suicidal ideation , Denies anxiety Endocrine: Denies fatigue, Denies weight change Past Medical History Past Medical History: No Reported History Additional Past Medical History / Comment(s): Other HX: Hep C, sciatica, MRSA left arm 2014, heroin abuse, restless leg syndrome History of Any Multi-Drug Resistant Organisms: MRSA Date of last positivie culture/infection: 05/06/2014 MDRO Source:: Left Elbow Past Surgical History: Cholecystectomy Additional Past Surgical History / Comment(s): needle removed from right arm 2012 Past Anesthesia/Blood Transfusion Reactions: No Reported Reaction Additional Past Anesthesia/Blood Transfusion Reaction / Comment(s): Pt states she has never recieved blood. Smoking Status: Current every day smoker - Past Family History Father Additional Family Medical History / Comment(s): Father is alive at age 70 with history of alcohol abuse. Mother Additional Family Medical History / Comment(s): Mother at age 50 with history of lung cancer and alcohol abuse. Patient does not have any brothers or sisters. Patient has 2 children. Medications and Allergies Home Medications Medication Instructions Recorded Confirmed Type Gabapentin 800 mg PO TID 10/25/16 10/25/16 History Allergies Allergy/AdvReac Type Severity Reaction Status Date / Time morphine Allergy Unknown Rash/Hives Verified 10/25/16 03:06 Physical Exam Vitals: Vital Signs Temp Pulse Pulse Resp BP BP Pulse Ox 10/25/16 08:14 69 16 103/63 10/25/16 02:16 97.5 F L 69 16 97/61 10/25/16 02:00 98.7 F 72 18 110/69 97 10/24/16 23:07 97.7 F 85 16 119/71 98 Intake and Output 10/25/16 10/25/16 10/25/16 06:59 14:59 22:59 Other: Weight 51.256 kg Gen: This is a 31-year-old female. She is cooperative and appears to be in no acute distress. HEENT: Head is atraumatic, normocephalic. Pupils equal, round. Sclerae is anicteric. NECK: Supple. No JVD. No lymphadenopathy. No thyromegaly. LUNGS: Clear to auscultation. No wheezes or rhonchi. No intercostal retractions. HEART: Regular rate and rhythm. No murmur. ABDOMEN: Soft. Bowel sounds are present. No masses. No tenderness. EXTREMITIES: No pedal edema. No calf tenderness. Track finley noted on the forearms and antecubital areas bilateral with no significant signs of abscess, infection. NEUROLOGICAL: Patient is awake, alert and oriented x3. Cranial nerves 2 through 12 are grossly intact. Cranial Nerve Examination - Cranial Nerves Cranial Nerve II- Optic: Intact Cranial Nerve III- Oculomotor: Intact Cranial Nerve IV- Trochlear: Intact Cranial Nerve V- Trigeminal: Intact Cranial Nerve - Abducens: Intact Cranial Nerve VII- Facial: Intact Cranial Nerve VIII- Auditory: Intact Cranial Nerve IX- Glossopharyngeal: Intact Cranial Nerve X- Vagus: Intact Cranial Nerve XI- Accessory: Intact Cranial Nerve XII- Hypoglossal: Intact Results CBC & Chem 7: 10/25/16 07:06 10/25/16 07:06 Labs: Abnormal Lab Results - Last 24 Hours (Table) 10/24/16 10/24/16 10/25/16 Range/Units 23:53 23:53 07:06 Chloride 110 H (98-107) mmol/L AST 13 L (14-36) U/L Urine Appearance Cloudy H (Clear) Urine Blood Small H (Negative) Urine RBC 76 H (0-5) /hpf Ur Squamous Epith Cells 5 H (0-4) /hpf Calcium Oxalate Crystal Few H (None) /hpf Urine Mucus Few H (None) /hpf Urine Opiates Screen Detected H (NotDetected) Ur Barbiturates Screen Detected H (NotDetected) U Marijuana (THC) Screen Detected H (NotDetected) Assessment and Plan Plan: 1. Depression with suicidal ideation with overdose on heroin. Patient admitted to the mental health unit. Continue current plan of care. 2. Restless leg syndrome. Patient has been on gabapentin. 3. Opiate withdrawal. Continue Imodium, Catapres. 4. Tobacco use and dependence. Continue nicotine patch. Impression and plan of care have been directed as dictated by the signing physician. Emily Osuna nurse practitioner acting as scribe for signing physician.
[2016-10-25] MEDS: cloNIDine HCL 0.1 MG TAB PO PRN (21:02)
[2016-10-26 06:38] VITALS: TEMP 97.7
[2016-10-26] MEDS: NICOTINE 14MG/24HR PATCH TRANSDERM SCH (08:28)
[2016-10-26] MEDS: cloNIDine HCL 0.1 MG TAB PO PRN (08:29)
[2016-10-26] MEDS: GABAPENTIN 400 MG CAP PO SCH ×3 (08:29→17:01)
[2016-10-26 08:31] VITALS: BP 110/63; PULSE 60; RESP 18
[2016-10-26] MEDS ORDERED: GABAPENTIN 400 MG CAP PO SCH (12:00)
--- NOTE | 2016-10-26 15:55 | P.DS ---
Providers Date of admission: 10/25/16 01:52 Expected date of discharge: 10/26/16 Attending physician: Bri Tijerina MD Consults: 10/25/16 02:53 Consult Physician Routine Consulting Provider: Tianna Rao Consult Reason/Comments: For H & P for Medical Follow Up Do you want consulting provider notified?: Yes, Notify in am Primary care physician: Rosamaria Trujillo Hospital Course: Brief admission history: 31-year-old single female who was admitted to the mental health unit through emergency room. complaining of suicidal ideation. Patient reported that if she was not admitted that she would go out and overdose on heroin. EPS nurse noted that she had a needle, and that she has a long history of heroin use. Patient reported that she had a recent breakup with her boyfriend which triggered the suicidal ideation. Hospital course: Initially patient was unwilling to participate in groups found lying in bed, had to be encouraged to get out of bed. Patient stated that she was no longer suicidal and wanted to leave. Stated that it was just a short period after finding out that her boyfriend broke up with her. She also has had a number of stressors including the loss of her children. Patient is known to the emergency room coming in with opiate overdose receiving Narcan then leaving AMA. Patient denies feeling depressed, anxious, or suicidal. Patient denies episodes of brynn or hypomania, denies thinking that she has super perla, denies hearing voices . She denies ever having any mental health treatment other than frequent admissions to rehab units for detox. Patient requests that she be discharged today. Patient was informed that she could sign an AMA form and that we would have up to 72 hours to make a decision. She signed that paper immediately. She remained here overnight and through today, staff has seen her and she has been noted to be euthymic, and not reporting suicidal ideation. She also reported that she was not feeling bad with respect to opiate withdrawal and had not used the clonidine PRN. She does not want to revoke the AMA, she will be discharged as there is no evidence of self-harm, and no evidence to retain her. IMPRESSIONS: 31-year-old female with at least a 6 year history of opiate use disorder, severe. Has had multiple ER visits with needing Narcan, and once awake and alert she is signing out AMA. Today there is no suicidal ideation which was the cause of her admission to [facility]. There is no evidence of depression anxiety, psychosis, brynn or hypomania. She is prescribed Xanax for unknown reason but she reports she will use Xanax when she is coming off of heroin ADMISSION DIAGNOSES: Suicidal ideation Opioid use disorder, severe Psychosocial problems DISCHARGE DIAGNOSES: OPIOID USE DISORDER, SEVERE PSYCHOSOCIAL ISSUES SUICIDAL IDEATION, RESOLVED PLAN: No benzodiazepines. Discharge AMA . Pertinent Studies: none Procedures: none Patient Condition at Discharge: Stable Plan - Discharge Summary New Discharge Prescriptions: Continue Gabapentin 800 mg PO TID #21 Discharge Medication List Gabapentin 800 mg PO TID #21 10/26/16 [Rx] Follow up Appointment(s)/Referral(s): [facility] [Outside] - 11/02/16 1:15 pm (11/02/16 at [address] ) Rosamaria Trujillo MD [Primary Care Provider] - 1-2 days
== END 2016-10-26 17:03 | disposition left against medical advice (07) | DRG 881 ==
LOC: EC 23:05 → 3MHU 10-25 01:52
PROVIDERS: ADMIT Psychiatry & Neurology Addiction Medicine; ATTEND Psychiatry & Neurology Addiction Medicine
PROC: HZ2ZZZZ Detoxification Services for Substance Abuse Treatment (ICD-10-PCS; principal; 2016-10-25)
DX: F32.9 Major depressive disorder, single episode, unspecified (principal); R45.851 Suicidal ideations; F11.23 Opioid dependence with withdrawal; F19.90 Other psychoactive substance use, unspecified, uncomplicated; G25.81 Restless legs syndrome; F41.9 Anxiety disorder, unspecified; F17.200 Nicotine dependence, unspecified, uncomplicated; M54.30 Sciatica, unspecified side; R68.3 Clubbing of fingers; Z88.5 Allergy status to narcotic agent; Z86.19 Personal history of other infectious and parasitic diseases; Z86.14 Personal history of Methicillin resistant Staphylococcus aureus infection; Z81.1 Family history of alcohol abuse and dependence; Z87.828 Personal history of other (healed) physical injury and trauma; Z79.899 Other long term (current) drug therapy; Z56.0 Unemployment, unspecified; Z90.49 Acquired absence of other specified parts of digestive tract; Z80.1 Family history of malignant neoplasm of trachea, bronchus and lung; Z63.79 Other stressful life events affecting family and household; Z62.890 Parent-child estrangement NEC; Z53.21 Procedure and treatment not carried out due to patient leaving prior to being seen by health care provider; Z63.0 Problems in relationship with spouse or partner
CPT/HCPCS: 80053; 80306; 81001; 81025; 82075; 84443; 85025

== ENCOUNTER 2016-10-30 17:18 | Emergency (ER) | payer MEDICAID, OTHER ==
[2016-10-30 17:27] VITALS: BP 141/70; PULSE 128; RESP 20; TEMP 98.9
--- NOTE | 2016-10-30 17:36 | ED ---
General Adult HPI - General Chief complaint: Psychiatric Symptoms Stated complaint: Overdose Time Seen by Provider: 10/30/16 17:20 Source: patient, EMS, RN notes reviewed Mode of arrival: EMS Limitations: no limitations - History of Present Illness Initial comments: 31-year-old female presented emergency department for heroin abuse. Patient was brought to emergency department by EMS because her father called police. Patient states that she uses heroin everyday has been diarrhea multiple times and was told that she cannot come back to [place] she's been there several times. She was on methadone for while. Patient states that she showed up and she was high. She states that she never passed out. Patient was never given any Narcan. Patient has no complaints at this time denies any suicidal or homicidal thoughts. Denies any chest pain, shortness breath, headache, dizziness denies any nausea vomiting. - Related Data Previous Rx's Medication Instructions Recorded Gabapentin 800 mg PO TID #21 10/26/16 Allergies Allergy/AdvReac Type Severity Reaction Status Date / Time morphine Allergy Unknown Rash/Hives Verified 10/30/16 17:29 Review of Systems ROS Statement: Those systems with pertinent positive or pertinent negative responses have been documented in the HPI. ROS Other: All systems not noted in ROS Statement are negative. Past Medical History Past Medical History: No Reported History Additional Past Medical History / Comment(s): Other HX: Hep C, sciatica, MRSA left arm 2014, heroin abuse, restless leg syndrome History of Any Multi-Drug Resistant Organisms: MRSA Date of last positivie culture/infection: 05/06/2014 MDRO Source:: Left Elbow Past Surgical History: Cholecystectomy Additional Past Surgical History / Comment(s): needle removed from right arm 2012 Past Anesthesia/Blood Transfusion Reactions: No Reported Reaction Additional Past Anesthesia/Blood Transfusion Reaction / Comment(s): Pt states she has never recieved blood. Past Psychological History: Anxiety, Depression Smoking Status: Current every day smoker Past Alcohol Use History: Rare Past Drug Use History: Heroin, Marijuana - Past Family History Father Additional Family Medical History / Comment(s): Father is alive at age 70 with history of alcohol abuse. Mother Additional Family Medical History / Comment(s): Mother at age 50 with history of lung cancer and alcohol abuse. Patient does not have any brothers or sisters. Patient has 2 children. General Exam Limitations: no limitations General appearance: alert, in no apparent distress Head exam: Present: atraumatic, normocephalic, normal inspection Eye exam: Present: normal appearance, PERRL, EOMI. Absent: scleral icterus, conjunctival injection, periorbital swelling Respiratory exam: Present: normal lung sounds bilaterally. Absent: respiratory distress, wheezes, rales, rhonchi, stridor Cardiovascular Exam: Present: regular rate, normal rhythm, normal heart sounds. Absent: systolic murmur, diastolic murmur, rubs, gallop, clicks GI/Abdominal exam: Present: soft, normal bowel sounds. Absent: distended, tenderness, guarding, rebound, rigid Extremities exam: Present: other (Multiple track finley) Neurological exam: Present: alert, oriented X3, CN II-XII intact, reflexes normal. Absent: motor sensory deficit Psychiatric exam: Present: normal affect, normal mood. Absent: homicidal ideation, suicidal ideation Skin exam: Present: warm, dry, intact, normal color. Absent: rash Course Vital Signs 10/30/16 17:20 Temperature 98.9 F Pulse Rate 128 H Respiratory 20 Rate Blood Pressure 141/70 O2 Sat by Pulse 99 Oximetry Medical Decision Making - Medical Decision Making 31-year-old female with history of heroin abuse. Patient presented for heroin use today. Patient was not given Narcan. Patient is awake alert and orientated. Patient has no complaints. Patient is advised follow up outpatient and will be given information. She has an appointment with [facility] on . Return parameters were discussed. Disposition Clinical Impression: Drug abuse Disposition: HOME SELF-CARE Condition: Stable Instructions: Opioid Dependence (ED) Additional Instructions: Please return to the Emergency Department if symptoms worsen or any other concerns. Referrals: None,Stated [Primary Care Provider] - 1-2 days Time of Disposition: 17:36
== END 2016-10-30 18:03 | disposition home or self-care (01) ==
LOC: EC 17:18
DX: F11.10 Opioid abuse, uncomplicated (principal); F17.200 Nicotine dependence, unspecified, uncomplicated; Z88.5 Allergy status to narcotic agent
CPT/HCPCS: 99284

== ENCOUNTER 2016-11-07 07:04 | Emergency (ER) | payer OTHER ==
[2016-11-07 07:09] VITALS: RESP 18; TEMP 97.3
[2016-11-07] MEDS ORDERED: METOCLOPRAMIDE 5 MG/ML 2 ML VIAL IVP STA (07:38)
[2016-11-07] MEDS ORDERED: SODIUM CHLORIDE 0.9% 1,000 ML IV STA (07:38)
[2016-11-07] MEDS ORDERED: KETOROLAC 30 MG/ML 1 ML VIAL IVP STA (07:38)
--- NOTE | 2016-11-07 07:42 | ED ---
General Adult HPI - General Chief complaint: Abdominal Pain Stated complaint: Abd Pain Time Seen by Provider: 11/07/16 07:15 Source: patient, EMS, RN notes reviewed Mode of arrival: EMS Limitations: no limitations - History of Present Illness Initial comments: Patient is a pleasant 31-year-old female presenting to the emergency department complaining of abdominal discomfort. Onset was a couple of hours ago. Patient had sudden onset left lower abdominal discomfort. Discomfort has been persistent. Patient has had nausea and vomiting. No history of similar symptoms previously. Patient denies stating she is not sexually active however has not had menses in several months. No dysuria or hematuria. No constipation or diarrhea. - Related Data Home Medications Medication Instructions Recorded Confirmed Gabapentin 800 mg PO QID 11/07/16 11/07/16 Allergies Allergy/AdvReac Type Severity Reaction Status Date / Time morphine Allergy Unknown Rash/Hives Verified 11/07/16 09:04 metoclopramide [From Reglan] AdvReac Itching Verified 11/07/16 09:05 Review of Systems ROS Statement: Those systems with pertinent positive or pertinent negative responses have been documented in the HPI. ROS Other: All systems not noted in ROS Statement are negative. Constitutional: Denies: fever Eyes: Denies: eye pain ENT: Denies: ear pain Respiratory: Denies: cough Cardiovascular: Denies: chest pain Endocrine: Denies: fatigue Gastrointestinal: Reports: abdominal pain, nausea, vomiting Genitourinary: Reports: abnormal menses. Denies: urgency, dysuria, frequency, hematuria, discharge Musculoskeletal: Denies: arthralgia Skin: Denies: rash Neurological: Denies: weakness Past Medical History Past Medical History: No Reported History Additional Past Medical History / Comment(s): Other HX: Hep C, sciatica, MRSA left arm 2015, heroin abuse, restless leg syndrome History of Any Multi-Drug Resistant Organisms: MRSA Date of last positivie culture/infection: 05/06/2014 MDRO Source:: Left Elbow Past Surgical History: Cholecystectomy Additional Past Surgical History / Comment(s): needle removed from right arm 2012 Past Anesthesia/Blood Transfusion Reactions: No Reported Reaction Additional Past Anesthesia/Blood Transfusion Reaction / Comment(s): Pt states she has never recieved blood. Past Psychological History: Anxiety, Depression Smoking Status: Current every day smoker Past Alcohol Use History: Rare Past Drug Use History: Heroin, Marijuana - Past Family History Father Additional Family Medical History / Comment(s): Father is an alcoholic. Mother Additional Family Medical History / Comment(s): Mother is an alcoholic General Exam Limitations: no limitations General appearance: alert, other (Patient does appear uncomfortable) Head exam: Present: atraumatic Eye exam: Present: normal appearance, PERRL ENT exam: Present: normal oropharynx Neck exam: Present: normal inspection Respiratory exam: Present: normal lung sounds bilaterally Cardiovascular Exam: Present: regular rate, normal rhythm Expanded Peripheral pulses: 2+: Dorsalis Pedis (R), Dorsalis Pedis (L) GI/Abdominal exam: Present: soft, tenderness (Mild epigastric tenderness moderate left sided abdominal tenderness), normal bowel sounds. Absent: distended, guarding, rebound, rigid, pulsatile mass Extremities exam: Present: normal inspection Back exam: Present: normal inspection Neurological exam: Present: alert Psychiatric exam: Present: normal affect, normal mood Skin exam: Present: normal color Course Vital Signs 11/07/16 11/07/16 11/07/16 07:04 08:49 10:00 Temperature 97.3 F L Pulse Rate 70 68 60 Respiratory 18 18 18 Rate Blood Pressure 114/61 117/71 147/65 O2 Sat by Pulse 96 98 98 Oximetry - Reevaluation(s) Reevaluation #1: 11/07/16 08:38 Patient reevaluated. Patient did have a restless sensation following Reglan and that has resolved. Patient states discomfort remains unchanged. Repeat abdominal exam shows moderate tenderness left upper quadrant with mild tenderness epigastric and left lower quadrant. Patient denies any pelvic pain and refuses pelvic exam. Computed tomography scan will be ordered. Medical Decision Making - Medical Decision Making Patient reevaluated and is resting comfortably in bed. Patient requesting further pain medication. Patient is refusing Bentyl. Patient does admit this is a chronic problem for her. Patient is requesting discharge. Patient was updated on results and need for close follow-up. Patient is specifically updated on possibility of ovarian mass. - Lab Data Result diagrams: 11/07/16 07:20 11/07/16 07:20 Lab Results 11/07/16 11/07/16 11/07/16 Range/Units 07:20 07:20 07:20 WBC 6.5 (3.8-10.6) k/uL RBC 4.99 (3.80-5.40) m/uL Hgb 14.7 (11.4-16.0) gm/dL Hct 44.0 (34.0-46.0) % MCV 88.2 (80.0-100.0) fL MCH 29.4 (25.0-35.0) pg MCHC 33.3 (31.0-37.0) g/dL RDW 14.0 (11.5-15.5) % Plt Count 232 (150-450) k/uL Neutrophils % 68 % Lymphocytes % 21 % Monocytes % 5 % Eosinophils % 3 % Basophils % 1 % Neutrophils # 4.5 (1.3-7.7) k/uL Lymphocytes # 1.4 (1.0-4.8) k/uL Monocytes # 0.3 (0-1.0) k/uL Eosinophils # 0.2 (0-0.7) k/uL Basophils # 0.0 (0-0.2) k/uL PT 11.0 (9.0-12.0) sec INR 1.1 (<1.2) APTT 26.7 (22.0-30.0) sec Sodium 142 (137-145) mmol/L Potassium 4.4 (3.5-5.1) mmol/L Chloride 110 H (98-107) mmol/L Carbon Dioxide 23 (22-30) mmol/L Anion Gap 9 mmol/L BUN 9 (7-17) mg/dL Creatinine 0.49 L (0.52-1.04) mg/dL Est GFR (MDRD) Af Amer >60 (>60 ml/min/1.73 sqM) Est GFR (MDRD) Non-Af >60 (>60 ml/min/1.73 sqM) Glucose 107 H (74-99) mg/dL Calcium 8.9 (8.4-10.2) mg/dL Total Bilirubin 0.4 (0.2-1.3) mg/dL AST 18 (14-36) U/L ALT 35 (9-52) U/L Alkaline Phosphatase 66 (38-126) U/L Total Protein 7.0 (6.3-8.2) g/dL Albumin 3.8 (3.5-5.0) g/dL Amylase 40 (30-110) U/L Lipase 53 (23-300) U/L Urine Color Urine Appearance (Clear) Urine pH (5.0-8.0) Ur Specific [place] (1.001-1.035) Urine Protein (Negative) Urine Glucose (UA) (Negative) Urine Ketones (Negative) Urine Blood (Negative) Urine Nitrite (Negative) Urine Bilirubin (Negative) Urine Urobilinogen (<2.0) mg/dL Ur Leukocyte Esterase (Negative) Ur Squamous Epith Cells (0-4) /hpf Amorphous Sediment (None) /hpf Urine Mucus (None) /hpf Urine HCG, Qual (Not Detectd) 11/07/16 11/07/16 Range/Units 07:20 07:20 WBC (3.8-10.6) k/uL RBC (3.80-5.40) m/uL Hgb (11.4-16.0) gm/dL Hct (34.0-46.0) % MCV (80.0-100.0) fL MCH (25.0-35.0) pg MCHC (31.0-37.0) g/dL RDW (11.5-15.5) % Plt Count (150-450) k/uL Neutrophils % % Lymphocytes % % Monocytes % % Eosinophils % % Basophils % % Neutrophils # (1.3-7.7) k/uL Lymphocytes # (1.0-4.8) k/uL Monocytes # (0-1.0) k/uL Eosinophils # (0-0.7) k/uL Basophils # (0-0.2) k/uL PT (9.0-12.0) sec INR (<1.2) APTT (22.0-30.0) sec Sodium (137-145) mmol/L Potassium (3.5-5.1) mmol/L Chloride (98-107) mmol/L Carbon Dioxide (22-30) mmol/L Anion Gap mmol/L BUN (7-17) mg/dL Creatinine (0.52-1.04) mg/dL Est GFR (MDRD) Af Amer (>60 ml/min/1.73 sqM) Est GFR (MDRD) Non-Af (>60 ml/min/1.73 sqM) Glucose (74-99) mg/dL Calcium (8.4-10.2) mg/dL Total Bilirubin (0.2-1.3) mg/dL AST (14-36) U/L ALT (9-52) U/L Alkaline Phosphatase (38-126) U/L Total Protein (6.3-8.2) g/dL Albumin (3.5-5.0) g/dL Amylase (30-110) U/L Lipase (23-300) U/L Urine Color Yellow Urine Appearance Turbid H (Clear) Urine pH 7.5 (5.0-8.0) Ur Specific [place] 1.018 (1.001-1.035) Urine Protein Trace H (Negative) Urine Glucose (UA) Negative (Negative) Urine Ketones Negative (Negative) Urine Blood Negative (Negative) Urine Nitrite Negative (Negative) Urine Bilirubin Negative (Negative) Urine Urobilinogen 2.0 (<2.0) mg/dL Ur Leukocyte Esterase Trace H (Negative) Ur Squamous Epith Cells 2 (0-4) /hpf Amorphous Sediment Moderate H (None) /hpf Urine Mucus Few H (None) /hpf Urine HCG, Qual Not Detected (Not Detectd) - Radiology Data Radiology results: report reviewed (Transvaginal ultrasound shows possible 2 cm cell lesion recommending follow-up following next menstrual cycle. Computed tomography scan of the abdomen and pelvis shows evidence of recent ovulation left ovary.), image reviewed (KUB shows no acute process) Disposition Clinical Impression: Abdominal pain Disposition: HOME SELF-CARE Condition: Stable Instructions: Abdominal Pain (ED) Additional Instructions: Please follow-up with [facility] and primary care physician this week. You do need to have repeat ultrasound done and further evaluation regarding possible mass left ovary. This is very important. Return for change or worsening of symptoms , fevers, unable to tolerate liquids or other concerns. Referrals: Junior Campos MD [STAFF PHYSICIAN] - 1-2 days Jose Cabrera MD [STAFF PHYSICIAN] - 1-2 days Time of Disposition: 10:56
[2016-11-07] MEDS: diphenhydrAMINE 50 MG/ML 1 ML VIAL IVP STA ×2 (08:00→08:10)
[2016-11-07 08:15] LABS: Basophils % (A) 1 %; CH 29.7; CHCM 33.8; Eosinophils # (A) 0.2 k/uL (0-0.7); Eosinophils % (A) 3 %; HDW 2.63; HGB 14.7 gm/dL (11.4-16.0); Luc # (Auto) 0.16; Luc % (Auto) 3; Lymphocytes # (A) 1.4 k/uL (1.0-4.8); Lymphocytes % (A) 21 %; MCH 29.4 pg (25.0-35.0); MCHC 33.3 g/dL (31.0-37.0); MCV 88.2 fL (80.0-100.0); Mean Platelet Volume 9.2; Monocytes # (A) 0.3 k/uL (0-1.0); Monocytes % (A) 5 %; Neutrophils # (A) 4.5 k/uL (1.3-7.7); Neutrophils % (A) 68 %; RBC 4.99 m/uL (3.80-5.40); WBC 6.5 k/uL (3.8-10.6)
[2016-11-07 08:18] LABS: Amorphous Sediment,Urine Moderate /hpf; Appearance,Urine Turbid (Clear); Bilirubin,Urine Negative (Negative); Glucose,Urine (UA) Negative (Negative); Ketones,Urine Negative (Negative); Leukocyte Esterase,Urine Trace (Negative); Mucus,Urine Few /hpf; Nitrite,Urine Negative (Negative); PH, Urine 7.5 (5.0-8.0); Particle Count 18453; Protein,Urine Trace (Negative); Specific Gravity,Urine 1.018 (1.001-1.035); Squamous Epithelial Cell,Urine 2 /hpf (0-4); UA Billing (MACRO vs. MICRO) MICRO
[2016-11-07 08:24] LABS: ALT 35 U/L (9-52); AST 18 U/L (14-36); Alkaline Phosphatase 66 U/L (38-126); Amylase 40 U/L (30-110); Anion Gap 9 mmol/L; Blood Urea Nitrogen 9 mg/dL (7-17); Calcium 8.9 mg/dL (8.4-10.2); Carbon Dioxide 23 mmol/L (22-30); Chloride 110 mmol/L (98-107); Glucose 107 mg/dL (74-99); Non-African American GFR(MDRD) >60 (>60 ml/min/1.73 sqM); Potassium 4.4 mmol/L (3.5-5.1); Sodium 142 mmol/L (137-145); Total Bilirubin 0.4 mg/dL (0.2-1.3)
[2016-11-07 08:29] LABS: INR 1.1 (<1.2)
[2016-11-07 08:30] LABS: Partial Thromboplastin Time 26.7 sec (22.0-30.0)
[2016-11-07] MEDS ORDERED: HYDROmorphone 1 MG/ML 1 ML SYRINGE IVP STA (08:37)
[2016-11-07] MEDS ORDERED: RX INFO: IV CONTRAST WAS GIVEN 1 EACH MISC MISCELLANE PRN (08:37)
--- NOTE | 2016-11-07 08:37 | XR ---
EXAMINATION TYPE: XR KUB , 2 VIEWS DATE OF EXAM ORDERED: 11/07/2016 HISTORY: abdominal pain. COMPARISON: Previous study dated 05/30/2016. FINDINGS: There has been a previous cholecystectomy. The abdominal gas pattern is normal. There is no evidence of obstruction or free air. No unusual calc ifications are seen. IMPRESSION: NORMAL ABDOMEN.
--- NOTE | 2016-11-07 09:28 | CT ---
EXAMINATION TYPE: CT abdomen pelvis w con DATE OF EXAM: 11/07/2016 REFERENCE: Previous study dated 07/18/2015 HISTORY: Pain HISTORY: lower abd pain, nausea and vomiting REFERENCE: NONE CT DLP: 408.6 mGy Automated exposure control for dose reduction was used. TECHNIQUE: Helical acquisition through the abdomen and pelvis was obtained following the oral ingesti on of without Oral Contrast and following intravenous administration of 100 mL of Omnipaque 350. The data was reformatted in axial, coronal and sagittal projections. FINDINGS: Visualized portions of the lungs are clear. There is no pleural or pericardial fluid. The heart is not enlarged. Within the abdomen, the liver is mildly prominent measuring 18.3 cm. The gallbladder is been removed. The spleen is upper limits of normal at 13 cm. Both adrenal glands are normal. Both kidneys demonstrate function and appear morphologically normal. The pancreas is unremarkable. There is no significant retroperitoneal, iliac or inguinal adenopathy. The uterus is unremarkable. There is evidence of recent ovulation with a slightly irregular enhancing left ovarian cyst. There is follicular change in the right ovary. The bladder is not distended. There is no significant diverticular change and I do not see evidence of diverticulitis the appendix is normal. Small bowel loops are unremarkable. There is no free fluid and no free air. No osseous lesion is identified. IMPRESSION: 1. MILD HEPATOMEGALY. 2. EVIDENCE OF RECENT OVULATION IN THE LEFT OVARY. 3. NO ACUTE INFLAMMATORY ABNORMALITY.
[2016-11-07 10:35] VITALS: BP 147/65; PULSE 60
--- NOTE | 2016-11-07 10:36 | US ---
EXAMINATION TYPE: US transvaginal DATE OF EXAM: 11/07/2016 COMPARISON: Previous study dated 07/22/2013. CLINICAL HISTORY: Pain. Generalized pain, Patient states not having a period for the past 7 months. . TECHNIQUE: Transvaginal (TV) Date of LMP: 04/23/2016 EXAM MEASUREMENTS: Uterus: 8.4 x 5.9 x 4.4 cm Endometrial Stripe: 1.0 cm Right Ovary: 3.3 x 2.0 x 2.0 cm Left Ovary: 3.9 x 2.4 x 2.9 cm 1. Uterus: Anteverted wnl 2. Endometrium: slightly heterogenous 3. Right Ovary: follicles seen 4. Left Ovary: follicles seen. Hypoechoic lesion with peripheral vascularity = 2.0 x 1.5 x 1.8 cm Spectral, color and waveform doppler imaging shows good arterial and venous flow within the ovaries ; there is no evidence for ovarian torsion. 5. Bilateral Adnexa: wnl 6. Posterior cul-de-sac: no free fluid Cervix- nabothian cysts IMPRESSION: 1. NABOTHIAN CYSTS. 2. HETEROGENOUS UTERUS MAY REFLECT ADENOMYOSIS. 3. POSSIBLE 2 CM SOLID LESION WITHIN THE LEFT OVARY. SHORT-TERM FOLLOW-UP WOULD BE SUGGESTED FOLLOWIN G THE PATIENT'S NEXT MENSTRUAL CYCLE.
[2016-11-07] MEDS ORDERED: ONDANSETRON 4 MG/2 ML VIAL IVP STA (10:51)
== END 2016-11-07 11:02 | disposition home or self-care (01) ==
LOC: EC 07:04
DX: R10.12 Left upper quadrant pain (principal); R10.32 Left lower quadrant pain; R10.13 Epigastric pain; R11.2 Nausea with vomiting, unspecified; G25.81 Restless legs syndrome; F17.200 Nicotine dependence, unspecified, uncomplicated; Z79.899 Other long term (current) drug therapy; Z88.5 Allergy status to narcotic agent; Z88.8 Allergy status to other drugs, medicaments and biological substances; Z90.49 Acquired absence of other specified parts of digestive tract
CPT/HCPCS: 36415; 80053; 82150; 83690; 85025; 85610; 85730; 81001; 81025; 74000; 93975; 76830; 74177; 99285; 96374; 96375 ×4; 96361 ×3; J1200; J2765; J2405; J1885; J1170; Q9967

== ENCOUNTER 2016-11-17 01:50 | Emergency (ER) | payer OTHER ==
[2016-11-17 01:56] VITALS: TEMP 96.2
--- NOTE | 2016-11-17 02:14 | ED ---
General Adult HPI - General Chief complaint: Overdose Stated complaint: Drug use Time Seen by Provider: 11/17/16 02:02 Source: patient, RN notes reviewed Mode of arrival: ambulatory Limitations: no limitations - History of Present Illness Initial comments: Patient is a pleasant 31-year-old female presenting to the emergency department for drowsiness and drug use. data officer did notice patient staggering and drowsy. He was not comfortable with letting patient go home. Patient does admit to heroin use. Patient also admits to taking 2 mg of Xanax. Patient states she does not normally takes Xanax. No suicidal thoughts. Patient states she is drowsy because of the Xanax use. No alcohol use. No other complaints. Patient denies any injury. - Related Data Home Medications Medication Instructions Recorded Confirmed Gabapentin 800 mg PO QID 11/07/16 11/07/16 Allergies Allergy/AdvReac Type Severity Reaction Status Date / Time morphine Allergy Unknown Rash/Hives Verified 11/17/16 01:57 metoclopramide [From Reglan] AdvReac Itching Verified 11/17/16 01:57 Review of Systems ROS Statement: Those systems with pertinent positive or pertinent negative responses have been documented in the HPI. ROS Other: All systems not noted in ROS Statement are negative. Constitutional: Denies: fever Eyes: Denies: eye pain ENT: Denies: ear pain Respiratory: Denies: cough Cardiovascular: Denies: chest pain Endocrine: Denies: fatigue Gastrointestinal: Denies: abdominal pain Genitourinary: Denies: dysuria Musculoskeletal: Denies: back pain Skin: Denies: rash Neurological: Denies: headache Past Medical History Past Medical History: No Reported History Additional Past Medical History / Comment(s): Other HX: Hep C, sciatica, MRSA left arm 2014, heroin abuse, restless leg syndrome History of Any Multi-Drug Resistant Organisms: MRSA Date of last positivie culture/infection: 05/06/2014 MDRO Source:: Left Elbow Past Surgical History: Cholecystectomy Additional Past Surgical History / Comment(s): needle removed from right arm 2012 Past Anesthesia/Blood Transfusion Reactions: No Reported Reaction Additional Past Anesthesia/Blood Transfusion Reaction / Comment(s): Pt states she has never recieved blood. Past Psychological History: Anxiety, Depression Smoking Status: Current every day smoker Past Alcohol Use History: Rare Past Drug Use History: Heroin, Marijuana - Past Family History Father Additional Family Medical History / Comment(s): Father is an alcoholic. Mother Additional Family Medical History / Comment(s): Mother is an alcoholic General Exam Limitations: no limitations General appearance: alert, in no apparent distress Head exam: Present: atraumatic Eye exam: Present: normal appearance, PERRL, EOMI ENT exam: Present: normal oropharynx Neck exam: Present: normal inspection. Absent: tenderness Respiratory exam: Present: normal lung sounds bilaterally Cardiovascular Exam: Present: regular rate, normal rhythm GI/Abdominal exam: Present: soft. Absent: tenderness Extremities exam: Present: normal inspection Neurological exam: Present: alert, oriented X3, CN II-XII intact. Absent: motor sensory deficit Expanded Motor strength exam: RUE: 5, LUE: 5, RLE: 5, LLE: 5 Psychiatric exam: Present: normal affect, normal mood Skin exam: Present: normal color Course Vital Signs 11/17/16 11/17/16 01:54 03:02 Temperature 96.2 F L Pulse Rate 109 H 90 Respiratory 18 16 Rate Blood Pressure 104/60 99/56 O2 Sat by Pulse 95 99 Oximetry Medical Decision Making - Medical Decision Making Patient requesting discharge. Patient remains alert and appropriate. No nystagmus. Steady gait. Disposition Clinical Impression: Drug intoxication Disposition: HOME SELF-CARE Condition: Stable Instructions: Polysubstance Abuse (ED) Additional Instructions: Discontinue drug use. Return for thoughts of self-harm, worsening symptoms or other concerns. Referrals: Eloisa Sutton MD [STAFF PHYSICIAN] - 1-2 days Time of Disposition: 03:07
[2016-11-17 03:04] VITALS: BP 99/56; PULSE 90; RESP 16
== END 2016-11-17 03:20 | disposition home or self-care (01) ==
LOC: EC 01:50
DX: T42.4X1A Poisoning by benzodiazepines, accidental (unintentional), initial encounter (principal); F11.90 Opioid use, unspecified, uncomplicated; F41.9 Anxiety disorder, unspecified; F17.200 Nicotine dependence, unspecified, uncomplicated; Z79.899 Other long term (current) drug therapy; Z88.5 Allergy status to narcotic agent; Z88.8 Allergy status to other drugs, medicaments and biological substances
CPT/HCPCS: 82075; 99284

== ENCOUNTER 2016-12-27 15:38 | Inpatient (IN) | payer MEDICAID, OTHER ==
[2016-12-27] MEDS ORDERED: ONDANSETRON 4 MG/2 ML VIAL IVP STA (16:04)
[2016-12-27] MEDS ORDERED: SODIUM CHLORIDE 0.9% 1,000 ML IV STA (16:04)
[2016-12-27] MEDS ORDERED: KETOROLAC 30 MG/ML 1 ML VIAL IVP STA (16:04)
[2016-12-27] MEDS ORDERED: SODIUM CHLORIDE 0.9% 2,000 ML IV STA (16:04)
--- NOTE | 2016-12-27 16:07 | ED ---
Abdominal Pain HPI - General Chief Complaint: Abdominal Pain Stated Complaint: abdominal pain/dark urine Time Seen by Provider: 12/27/16 15:46 Source: patient, RN notes reviewed, old records reviewed Mode of arrival: ambulatory Limitations: no limitations - History of Present Illness Initial Comments: 31-year-old female presents the emergency Department chief complaint of increased abdominal pain, dark urine over the past few days. Patient reports she is also noticed that her skin is more yellow. Patient has a history of hepatitis C. Surgical history includes cholecystectomy. Patient states that she does not manage HEP C with any medication. She has never seen a GI specialist. Patient reports that she has been having normal bowel movements. She denies any pain with urination. She reports that she is just getting over her menstrual cycle. She also relates she may have a sexually transmitted infection and she's had some lower abdominal discomfort and abnormal discharge. Patient denies any chance of . She reports that the abdominal pain occasionally radiates to her lower back. Patient denies any recent fever, chills, shortness of breath, chest pain, vomiting, numbness or tingling, dysuria or hematuria, constipation or diarrhea, headaches or visual changes, or any other current symptoms - Related Data Home Medications Medication Instructions Recorded Confirmed Gabapentin 800 mg PO QID 11/07/16 12/27/16 Allergies Allergy/AdvReac Type Severity Reaction Status Date / Time morphine Allergy Unknown Rash/Hives Verified 12/27/16 15:55 metoclopramide [From Reglan] AdvReac Itching Verified 12/27/16 15:55 Review of Systems ROS Statement: Those systems with pertinent positive or pertinent negative responses have been documented in the HPI. ROS Other: All systems not noted in ROS Statement are negative. Past Medical History Past Medical History: No Reported History Additional Past Medical History / Comment(s): Other HX: Hep C, sciatica, MRSA left arm 2014, heroin abuse, restless leg syndrome History of Any Multi-Drug Resistant Organisms: MRSA Date of last positivie culture/infection: 05/06/2014 MDRO Source:: Left Elbow Past Surgical History: Cholecystectomy Additional Past Surgical History / Comment(s): needle removed from right arm 2012 Past Anesthesia/Blood Transfusion Reactions: No Reported Reaction Additional Past Anesthesia/Blood Transfusion Reaction / Comment(s): Pt states she has never recieved blood. Past Psychological History: Anxiety, Depression Smoking Status: Current every day smoker Past Alcohol Use History: Rare Past Drug Use History: Heroin, Marijuana - Past Family History Father Additional Family Medical History / Comment(s): Father is an alcoholic. Mother Additional Family Medical History / Comment(s): Mother is an alcoholic General Exam - General Exam Comments Initial Comments: This is a jaundiced-appearing 31-year-old female. Patient is drinking a Mountain Dew in the emergency department. Patient does not appear to be in any acute distress. Limitations: no limitations General appearance: alert, in no apparent distress Head exam: Present: atraumatic, normocephalic, normal inspection Eye exam: Present: normal appearance, PERRL, EOMI, scleral icterus. Absent: conjunctival injection, periorbital swelling ENT exam: Present: normal exam, mucous membranes moist Neck exam: Present: normal inspection. Absent: tenderness, meningismus, lymphadenopathy Respiratory exam: Present: normal lung sounds bilaterally. Absent: respiratory distress, wheezes, rales, rhonchi, stridor Cardiovascular Exam: Present: regular rate, normal rhythm, normal heart sounds. Absent: systolic murmur, diastolic murmur, rubs, gallop, clicks GI/Abdominal exam: Present: soft, tenderness (Mild bilateral lower quadrant tenderness.), normal bowel sounds. Absent: distended, guarding, rebound, rigid Extremities exam: Present: normal inspection, full ROM, normal capillary refill. Absent: tenderness, pedal edema, joint swelling, calf tenderness Back exam: Present: normal inspection Neurological exam: Present: alert, oriented X3, CN II-XII intact Psychiatric exam: Present: normal affect, normal mood Skin exam: Present: warm, dry, intact, normal color. Absent: rash Course Vital Signs 12/27/16 12/27/16 15:41 17:17 Temperature 97.0 F L Pulse Rate 79 80 Respiratory 18 18 Rate Blood Pressure 108/66 110/62 O2 Sat by Pulse 100 99 Oximetry Medical Decision Making - Medical Decision Making 31-year-old female with history of hep C presents emergency department with increased abdominal pain, dark urine for the past few days. Patient lab work show significant transaminitis. Total bilirubin noted to be 11.7. AST of 2008. A LT of 2886. Alk phos of 260. Patient's urine does show significant bilirubin. Also some blood noted. She was also found to have low potassium. Patient was given potassium placement through the IV. She'll be started on antibiotics for evidence of urinary tract infection. I discussed that I'll want to admit the patient and patient seems reluctant. Discussed the importance of admission due to the severely elevated liver enzymes and acute hepatitis exacerbation. Patient then increase. Dr. Aragon will be consulted. Patient was bandaged Dr. Landry. Dr. Martinez discussed this with Rajeev the nurse practitioner. - Lab Data Result diagrams: 12/27/16 16:16 12/27/16 16:16 Lab Results 12/27/16 12/27/16 12/27/16 Range/Units 16:16 16:16 16:16 WBC 4.5 (3.8-10.6) k/uL RBC 5.22 (3.80-5.40) m/uL Hgb 15.4 (11.4-16.0) gm/dL Hct 46.3 H (34.0-46.0) % MCV 88.8 (80.0-100.0) fL MCH 29.6 (25.0-35.0) pg MCHC 33.3 (31.0-37.0) g/dL RDW 15.1 (11.5-15.5) % Plt Count 177 (150-450) k/uL Neutrophils % (Manual) 56 % Band Neutrophils % 1 % Lymphocytes % (Manual) 34 % Monocytes % (Manual) 9 % Neutrophils # (Manual) 2.50 (1.3-7.7) k/uL Lymphocytes # (Manual) 1.53 (1.0-4.8) k/uL Monocytes # (Manual) 0.41 (0-1.0) k/uL Nucleated RBCs 0 (0-0) /100 WBC Manual Slide Review Performed Large Platelets Present Anisocytosis (manual) Present Target Cells Present PT (9.0-12.0) sec INR (<1.2) APTT (22.0-30.0) sec Sodium 139 (137-145) mmol/L Potassium 3.0 L* (3.5-5.1) mmol/L Chloride 104 (98-107) mmol/L Carbon Dioxide 25 (22-30) mmol/L Anion Gap 10 mmol/L BUN 6 L (7-17) mg/dL Creatinine 0.64 (0.52-1.04) mg/dL Est GFR (MDRD) Af Amer >60 (>60 ml/min/1.73 sqM) Est GFR (MDRD) Non-Af >60 (>60 ml/min/1.73 sqM) Glucose 120 H (74-99) mg/dL Calcium 8.8 (8.4-10.2) mg/dL Total Bilirubin 11.7 H (0.2-1.3) mg/dL AST 2008 H (14-36) U/L ALT 2886 H (9-52) U/L Alkaline Phosphatase 260 H (38-126) U/L Total Protein 7.9 (6.3-8.2) g/dL Albumin 3.7 (3.5-5.0) g/dL Amylase <30 L (30-110) U/L Lipase 57 (23-300) U/L Urine Color Urine Appearance (Clear) Urine pH (5.0-8.0) Ur Specific [place] (1.001-1.035) Urine Protein (Negative) Urine Glucose (UA) (Negative) Urine Ketones (Negative) Urine Blood (Negative) Urine Nitrite (Negative) Urine Bilirubin (Negative) Urine Urobilinogen (<2.0) mg/dL Ur Leukocyte Esterase (Negative) Urine RBC (0-5) /hpf Urine WBC (0-5) /hpf Ur Squamous Epith Cells (0-4) /hpf Urine Bacteria (None) /hpf Urine Mucus (None) /hpf Urine HCG, Qual Not Detected (Not Detectd) 12/27/16 12/27/16 Range/Units 16:16 16:16 WBC (3.8-10.6) k/uL RBC (3.80-5.40) m/uL Hgb (11.4-16.0) gm/dL Hct (34.0-46.0) % MCV (80.0-100.0) fL MCH (25.0-35.0) pg MCHC (31.0-37.0) g/dL RDW (11.5-15.5) % Plt Count (150-450) k/uL Neutrophils % (Manual) % Band Neutrophils % % Lymphocytes % (Manual) % Monocytes % (Manual) % Neutrophils # (Manual) (1.3-7.7) k/uL Lymphocytes # (Manual) (1.0-4.8) k/uL Monocytes # (Manual) (0-1.0) k/uL Nucleated RBCs (0-0) /100 WBC Manual Slide Review Large Platelets Anisocytosis (manual) Target Cells PT 14.8 H (9.0-12.0) sec INR 1.5 H (<1.2) APTT 32.5 H (22.0-30.0) sec Sodium (137-145) mmol/L Potassium (3.5-5.1) mmol/L Chloride (98-107) mmol/L Carbon Dioxide (22-30) mmol/L Anion Gap mmol/L BUN (7-17) mg/dL Creatinine (0.52-1.04) mg/dL Est GFR (MDRD) Af Amer (>60 ml/min/1.73 sqM) Est GFR (MDRD) Non-Af (>60 ml/min/1.73 sqM) Glucose (74-99) mg/dL Calcium (8.4-10.2) mg/dL Total Bilirubin (0.2-1.3) mg/dL AST (14-36) U/L ALT (9-52) U/L Alkaline Phosphatase (38-126) U/L Total Protein (6.3-8.2) g/dL Albumin (3.5-5.0) g/dL Amylase (30-110) U/L Lipase (23-300) U/L Urine Color Dark Brown Urine Appearance Cloudy H (Clear) Urine pH 6.5 (5.0-8.0) Ur Specific [place] 1.018 (1.001-1.035) Urine Protein 1+ H (Negative) Urine Glucose (UA) Negative (Negative) Urine Ketones Negative (Negative) Urine Blood Moderate H (Negative) Urine Nitrite Negative (Negative) Urine Bilirubin 4+ H (Negative) Urine Urobilinogen 4.0 (<2.0) mg/dL Ur Leukocyte Esterase Moderate H (Negative) Urine RBC 64 H (0-5) /hpf Urine WBC 16 H (0-5) /hpf Ur Squamous Epith Cells 57 H (0-4) /hpf Urine Bacteria Moderate H (None) /hpf Urine Mucus Moderate H (None) /hpf Urine HCG, Qual (Not Detectd) Disposition Clinical Impression: Hepatitis C, UTI (urinary tract infection), Hepatitis Disposition: ADMITTED IP TO THIS HOSP Condition: Stable Referrals: None,Stated [Primary Care Provider] - 1-2 days Time of Disposition: 18:03
[2016-12-27 16:39] LABS: Appearance,Urine Cloudy (Clear); Bacteria,Urine Moderate /hpf; Bilirubin,Urine 4+ (Negative); Glucose,Urine (UA) Negative (Negative); Ketones,Urine Negative (Negative); Leukocyte Esterase,Urine Moderate (Negative); Mucus,Urine Moderate /hpf; Nitrite,Urine Negative (Negative); PH, Urine 6.5 (5.0-8.0); Particle Count 27329; Protein,Urine 1+ (Negative); RBC,Urine 64 /hpf (0-5); Specific Gravity,Urine 1.018 (1.001-1.035); Squamous Epithelial Cell,Urine 57 /hpf (0-4); UA Billing (MACRO vs. MICRO) MICRO; WBC,Urine 16 /hpf (0-5)
[2016-12-27 16:41] LABS: Aty Lym Flag Slight; CH 29.2; CHCM 33.1; HCT 46.3 % (34.0-46.0); HDW 2.85; HGB 15.4 gm/dL (11.4-16.0); MCH 29.6 pg (25.0-35.0); MCHC 33.3 g/dL (31.0-37.0); MCV 88.8 fL (80.0-100.0); Mean Platelet Volume 9.3; RBC 5.22 m/uL (3.80-5.40); RDW 15.1 % (11.5-15.5); WBC 4.5 k/uL (3.8-10.6); WBC (Perox) 4.22
[2016-12-27 16:42] LABS: Alkaline Phosphatase 260 U/L (38-126); Amylase <30 U/L (30-110); Anion Gap 10 mmol/L; Blood Urea Nitrogen 6 mg/dL (7-17); Calcium 8.8 mg/dL (8.4-10.2); Carbon Dioxide 25 mmol/L (22-30); Chloride 104 mmol/L (98-107); Glucose 120 mg/dL (74-99); Non-African American GFR(MDRD) >60 (>60 ml/min/1.73 sqM); Sodium 139 mmol/L (137-145); Total Bilirubin 11.7 mg/dL (0.2-1.3); Total Protein 7.9 g/dL (6.3-8.2)
[2016-12-27 16:46] LABS: INR 1.5 (<1.2); Partial Thromboplastin Time 32.5 sec (22.0-30.0); Prothrombin Time 14.8 sec (9.0-12.0)
[2016-12-27 16:57] LABS: Add Differential Manual Differential
[2016-12-27 17:00] LABS: ALT 2886 U/L (9-52); AST 2008 U/L (14-36)
[2016-12-27 17:02] LABS: Band Neutrophils % 1 %; Large Platelets Present; Manual Review Performed; Nucleated Red Blood Cells 0 /100 WBC (0-0); Target Cells Present; Total Cells Counted 100
[2016-12-27] MEDS: POTASSIUM CHLORIDE 10 MEQ, LIDOCAINE 2% INJ 10 MG in SODIUM CHLORIDE 0.9% 100 ML IVPB SCH ×2 (17:42→18:48)
[2016-12-27] MEDS ORDERED: LEVOFLOXACIN 750MG-D5W PMX 750 MG in DEXTROSE/WATER 1 150ML.BAG IVPB STA (17:50)
[2016-12-27] MEDS ORDERED: NALOXONE 0.4 MG/ML 1 ML VIAL IV PRN (17:59)
[2016-12-27] MEDS ORDERED: MORPHINE SULFATE 4 MG/ML SYRINGE IV PRN (17:59)
[2016-12-27] MEDS ORDERED: ONDANSETRON 4 MG/2 ML VIAL IVP PRN (17:59)
[2016-12-27] MEDS ORDERED: IBUPROFEN 400 MG TAB PO PRN (17:59)
[2016-12-27] MEDS ORDERED: HYDROmorphone 1 MG/ML 1 ML SYRINGE IVP STA ×2 (18:20→20:03)
[2016-12-27 19:02] LABS: Hepatitis B Surface Ag Index 0.22
[2016-12-27 19:08] LABS: Hepatitis B Core IgM Index 0.07
[2016-12-27 19:20] LABS: Hepatitis C Virus IgG Ab Reactive (Negative)
[2016-12-27 19:49] VITALS: BMI 47.9
[2016-12-27] MEDS: SODIUM CHLORIDE 0.9% 1,000 ML IV SCH (20:43)
[2016-12-27] MEDS: KETOROLAC 30 MG/ML 1 ML VIAL IVP PRN (22:49)
[2016-12-28] MEDS: HYDROmorphone 1 MG/ML 1 ML SYRINGE IVP PRN ×7 (01:27→21:08)
[2016-12-28] MEDS: SODIUM CHLORIDE 0.9% 1,000 ML IV SCH ×3 (02:32→18:26)
--- NOTE | 2016-12-28 07:26 | HP ---
HISTORY AND PHYSICAL CHIEF COMPLAINT: Not feeling well and jaundice. HISTORY OF PRESENT ILLNESS: This 31-year-old woman with a past medical history of hepatitis C, history of DJD, history MRSA, history of IV heroin abuse, history of anxiety and depression being followed by no primary physician in the outpatient setting was following with previously. Currently, the patient not feeling well. Patient came to [facility] and found to have elevated LFTs and admitted for further evaluation and treatment. Patient has not seen a porcelain buildup assistant previously. PAST MEDICAL HISTORY: History of hepatitis C, history of sciatica, history IV drug abuse, anxiety, depression. Last used was 10/24/2016. HOME MEDICATIONS: The home mediations were gabapentin 800 mg p.o. q.i.d. ALLERGIES: MORPHINE and REGLAN. FAMILY HISTORY: EtOH in the family. SOCIAL HISTORY: History of alcohol, heroin, marijuana, smoking. REVIEW OF SYSTEMS: ENT: No diminished hearing or diminished vision. CARDIOVASCULAR: No angina. RESPIRATORY: As mentioned earlier. GI: As mentioned earlier. : No dysuria. NERVOUS SYSTEM: No numbness or weakness. ALLERGIES/IMMUNOLOGICAL: No history of asthma or hayfever. MUSCULOSKELETAL: As mentioned earlier. HEMATOLOGY/ONCOLOGY: No history of anemia. ENDOCRINE: No history of diabetes, hypothyroidism. CONSTITUTIONAL: As mentioned earlier. DERMATOLOGY: Negative. RHEUMATOLOGY: Negative. PSYCHIATRY: As mentioned earlier. PHYSICAL EXAMINATION: The patient is alert and oriented x2. Pulse is 80, blood pressure 110/62, respiration 18, temperature 97 degrees, pulse ox 99% on room air. HEENT: Conjunctivae icteric. Oral mucosa moist. NECK: Neck is no jugular venous distention. No carotid bruit. No lymph node enlargement. CARDIOVASCULAR: S1 and S2. No S3 or S4. RESPIRATORY: Breath sounds diminished at the bases. A few scattered rhonchi. ABDOMEN: Soft. Mild diffuse discomfort on palpation. No guarding. There is no mass palpable. LEGS: No edema. No swelling. NERVOUS SYSTEM: Higher functions as mentioned earlier. Moves all 4 limbs. No focal motor or sensory deficits. LYMPHATICS: No lymphadenopathy of the neck, axillae or groin. SKIN: No ulcers, rashes or bleeding. LABS: WBC 4.5, hemoglobin 15.4. INR 1.5. Sodium 139, potassium 3. AST is 2008. ALT is 2886. Bilirubin is 11.7. UA noted. ASSESSMENT: 1. Acute hepatitis possibly acute on chronic hepatitis C. 2. Hypokalemia. 3. Coagulopathy secondary to chronic liver disease. 4. Increased AST, ALT and bilirubin. 5. Possible urinary tract infection. 6. History IV drug abuse. 7. History of methicillin-resistant Staphylococcus aureus. 8. History of anxiety and depression. 9. History of THC. 10.History of nicotine dependence. RECOMMENDATION AND DISCUSSION: In this 31-year-old woman who presented with multiple complex medical issues, will monitor the patient closely. Continue the current medications. Continue symptomatic treatment. Otherwise, at this time I would recommend close monitoring, gastroenterology consultation, repeat labs. Otherwise acute hepatitis panel, cultures, empiric antibiotics. Guarded prognosis because of multiple complex medical issues. Further recommendations to follow. I also recommend the patient to follow up closely with primary physician and as well as porcelain buildup assistant. The patient had been to rehab on multiple occasions. Continue with rehab efforts and followup. Prognosis is guarded. Psych followup at well. Further recommendations to follow. The patient understands and agrees. RENZO / RHEAN: [id number] / JANINE
[2016-12-28] MEDS: PANTOPRAZOLE 40 MG/10 ML VIAL IV SCH (07:54)
[2016-12-28 09:31] LABS: INR 1.6 (<1.2); Prothrombin Time 15.6 sec (9.0-12.0)
[2016-12-28] MEDS: LORazepam 2 MG/ML SYRINGE IV PRN ×2 (09:31→15:25)
[2016-12-28] MEDS: KETOROLAC 30 MG/ML 1 ML VIAL IVP PRN (09:31)
[2016-12-28 09:39] LABS: Aty Lym Flag Slight; CH 28.5; HCT 42.3 % (34.0-46.0); HDW 2.92; HGB 13.5 gm/dL (11.4-16.0); Hypochromasia Moderate; MCH 29.6 pg (25.0-35.0); MCHC 31.9 g/dL (31.0-37.0); MCV 92.9 fL (80.0-100.0); Mean Platelet Volume 9.9; RBC 4.55 m/uL (3.80-5.40); RDW 15.4 % (11.5-15.5); WBC 2.9 k/uL (3.8-10.6); WBC (Perox) 3.25
[2016-12-28 09:49] LABS: Alkaline Phosphatase 180 U/L (38-126); Anion Gap 8 mmol/L; Blood Urea Nitrogen 7 mg/dL (7-17); Calcium 7.7 mg/dL (8.4-10.2); Carbon Dioxide 20 mmol/L (22-30); Chloride 109 mmol/L (98-107); Glucose 126 mg/dL (74-99); Non-African American GFR(MDRD) >60 (>60 ml/min/1.73 sqM); Sodium 137 mmol/L (137-145); Total Bilirubin 8.2 mg/dL (0.2-1.3)
[2016-12-28 09:54] LABS: Potassium 3.5 mmol/L (3.5-5.1)
[2016-12-28 10:02] LABS: ALT 1701 U/L (9-52); AST 884 U/L (14-36)
[2016-12-28 12:15] LABS: Add Differential Manual Differential
[2016-12-28 12:18] LABS: Band Neutrophils % 1 %; Manual Review Performed; Nucleated Red Blood Cells 0 /100 WBC (0-0); Total Cells Counted 100
--- NOTE | 2016-12-28 12:26 | P.CONS ---
History of Present Illness - Reason for Consult Consult date: 12/28/16 Hepatitis A/C elevated liver enzymes Requesting physician: Zonia Landry - History of Present Illness 31-year-old female with a history of IVDA heroin abuse last usage 1 month ago, chronic hepatitis C, cholecystectomy, admitted with new onset of jaundice abdominal pain. Patient noticed jaundice about 5-7 days ago with dark colored urine. Pain is diffusely across mid abdomen. Hepatitis screen reactive for hepatitis A IgM antibody and hepatitis C IgG antibody. Patient has known about her hepatitis C status for several years without treatment. Brother was just diagnosed with hepatitis A and living with her over the past few weeks. No fevers. Denies hematemesis hematochezia melena. No diarrhea. Liver function tests normal October 2016. White count 2.9-4.5. Platelet 139-177. INR 1.5-1.6. total bilirubin 11.7 presently 8.2. AST 2008 presently 884. ALT 2886 presently 1701. Alkaline phosphatase 260 presently 180. Ammonia 29. Lipase 59. Review of Systems Constitutional: Denies fever, chills, sweats, weight gain, or loss. HEENT: Negative for migraines, blurred vision or loss, earaches, drainage, tinnitus, oral mucosal lesions, dysphagia, or odynophagia. CARDIAC: Negative for chest pain, arrhythmias, or palpitation. RESPIRATORY: Negative for shortness of breath, hemoptysis, cough, or sputum production. GI: See HPI for pertinent findings. : Negative for hematuria, urgency, frequency, polyuria, or dysuria. GYNc: Denies possibility of . Negative vaginal discharge. MUSCULOSKELETAL: Negative for muscle aches, swelling, arthritis, and arthralgias. NEUROLOGIC: Negative for stroke or TIA. ENDOCRINE: Negative for thyroid problems. SKIN: Negative for rash or itching. PSYCHIATRIC: depression and anxiety All systems: negative (see HPI) Past Medical History Past Medical History: No Reported History Additional Past Medical History / Comment(s): Other HX: Hep C, sciatica, MRSA left arm 2014, heroin abuse, restless leg syndrome History of Any Multi-Drug Resistant Organisms: MRSA Year Discovered:: 05/06/2014 MDRO Source:: Left Elbow Past Surgical History: Cholecystectomy Additional Past Surgical History / Comment(s): needle removed from right arm 2012 Past Anesthesia/Blood Transfusion Reactions: No Reported Reaction Additional Past Anesthesia/Blood Transfusion Reaction / Comm: Pt states she has never recieved blood. Past Psychological History: Anxiety, Depression Additional Psychological History / Comment(s): PT. ADMITS TO BEING DEPRESSED, DEINES ANY SUICIDAL IDEATIONS Smoking Status: Current every day smoker Past Alcohol Use History: Rare Additional Past Alcohol Use History / Comment(s): Pt lives alone in an apartment. She states she is normally self-sufficient. 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 Past Drug Use History: Heroin, Marijuana Additional Drug Use History / Comment(s): PT. DENIED DRUG USE TO ME WHEN I ASKED DURING HER ASSESSMENT, HOWEVER, PT. TESTED POSITIVE FOR OPIATES, BARBITUATES, AMPHETAMINES, METHAMPHETAMINES, AND MARIJUANA - Past Family History Father Additional Family Medical History / Comment(s): Father is an alcoholic. Mother Additional Family Medical History / Comment(s): Mother is an alcoholic Medications and Allergies Home Medications Medication Instructions Recorded Confirmed Type Gabapentin 800 mg PO QID 11/07/16 12/27/16 History Allergies Allergy/AdvReac Type Severity Reaction Status Date / Time morphine Allergy Unknown Rash/Hives Verified 12/27/16 15:55 metoclopramide [From Reglan] AdvReac Itching Verified 12/27/16 15:55 Physical Exam Vitals: Vital Signs Temp Pulse Pulse Resp BP BP Pulse Ox 12/28/16 07:30 98.3 F 66 18 115/77 12/28/16 00:00 73 16 12/27/16 22:40 97.6 F 73 16 95/61 96 12/27/16 19:15 97.8 F 82 17 101/62 96 12/27/16 18:32 97.8 F 72 18 104/68 99 12/27/16 17:17 80 18 110/62 99 12/27/16 15:41 97.0 F L 79 18 108/66 100 Intake and Output 12/27/16 12/28/16 12/28/16 22:59 06:59 14:59 Intake Total 110 1930 Balance 110 1930 Intake: Intake, IV Titration 1390 Amount Sodium Chloride 0.9% 1, 1390 000 ml @ 100 mls/hr IV . Q10H STA Rx#:[id number] Oral 110 540 Other: Voiding Method Toilet # Voids 2 2 # Bowel Movements 1 Weight 115 kg 115 kg General appearance: The patient is alert, oriented, in no acute distress. Jaundice. HET: Head is normocephalic and atraumatic. Pupils are equal and reactive. sclerae icterus. Oropharynx is clear without lesions. Neck: Supple without lymphadenopathy. Trachea midline. Heart: S1 S2. Regular rate and rhythm. Lungs: No crackles or wheezes are heard. Abdomen: Soft, diffuse mild tenderness midabdomen, nondistended with bowel sounds. No peritoneal signs. No palpable organomegaly or masses. Extremities: Normal skin color and turgor. No cyanosis, rash, ulceration, clubbing, or edema. Radial and pedal pulses are 2/4 bilaterally. Neurological: No focal deficits. Strength and sensation are grossly intact. Results CBC & Chem 7: 12/28/16 08:24 12/28/16 08:24 Labs: Abnormal Lab Results - Last 24 Hours (Table) 12/27/16 12/27/16 12/27/16 Range/Units 16:16 16:16 16:16 WBC (3.8-10.6) k/uL Hct 46.3 H (34.0-46.0) % Plt Count (150-450) k/uL PT 14.8 H (9.0-12.0) sec INR 1.5 H (<1.2) APTT 32.5 H (22.0-30.0) sec Potassium 3.0 L* (3.5-5.1) mmol/L Chloride (98-107) mmol/L Carbon Dioxide (22-30) mmol/L BUN 6 L (7-17) mg/dL Glucose 120 H (74-99) mg/dL Calcium (8.4-10.2) mg/dL Total Bilirubin 11.7 H (0.2-1.3) mg/dL AST 2008 H (14-36) U/L ALT 2886 H (9-52) U/L Alkaline Phosphatase 260 H (38-126) U/L Total Protein (6.3-8.2) g/dL Albumin (3.5-5.0) g/dL Amylase <30 L (30-110) U/L Urine Appearance (Clear) Urine Protein (Negative) Urine Blood (Negative) Urine Bilirubin (Negative) Ur Leukocyte Esterase (Negative) Urine RBC (0-5) /hpf Urine WBC (0-5) /hpf Ur Squamous Epith Cells (0-4) /hpf Urine Bacteria (None) /hpf Urine Mucus (None) /hpf 12/27/16 12/28/16 12/28/16 Range/Units 16:16 08:24 08:24 WBC 2.9 L (3.8-10.6) k/uL Hct (34.0-46.0) % Plt Count 139 L (150-450) k/uL PT 15.6 H (9.0-12.0) sec INR 1.6 H (<1.2) APTT (22.0-30.0) sec Potassium (3.5-5.1) mmol/L Chloride (98-107) mmol/L Carbon Dioxide (22-30) mmol/L BUN (7-17) mg/dL Glucose (74-99) mg/dL Calcium (8.4-10.2) mg/dL Total Bilirubin (0.2-1.3) mg/dL AST (14-36) U/L ALT (9-52) U/L Alkaline Phosphatase (38-126) U/L Total Protein (6.3-8.2) g/dL Albumin (3.5-5.0) g/dL Amylase (30-110) U/L Urine Appearance Cloudy H (Clear) Urine Protein 1+ H (Negative) Urine Blood Moderate H (Negative) Urine Bilirubin 4+ H (Negative) Ur Leukocyte Esterase Moderate H (Negative) Urine RBC 64 H (0-5) /hpf Urine WBC 16 H (0-5) /hpf Ur Squamous Epith Cells 57 H (0-4) /hpf Urine Bacteria Moderate H (None) /hpf Urine Mucus Moderate H (None) /hpf 12/28/16 Range/Units 08:24 WBC (3.8-10.6) k/uL Hct (34.0-46.0) % Plt Count (150-450) k/uL PT (9.0-12.0) sec INR (<1.2) APTT (22.0-30.0) sec Potassium (3.5-5.1) mmol/L Chloride 109 H (98-107) mmol/L Carbon Dioxide 20 L (22-30) mmol/L BUN (7-17) mg/dL Glucose 126 H (74-99) mg/dL Calcium 7.7 L (8.4-10.2) mg/dL Total Bilirubin 8.2 H (0.2-1.3) mg/dL AST 884 H (14-36) U/L ALT 1701 H (9-52) U/L Alkaline Phosphatase 180 H (38-126) U/L Total Protein 6.0 L (6.3-8.2) g/dL Albumin 2.6 L (3.5-5.0) g/dL Amylase (30-110) U/L Urine Appearance (Clear) Urine Protein (Negative) Urine Blood (Negative) Urine Bilirubin (Negative) Ur Leukocyte Esterase (Negative) Urine RBC (0-5) /hpf Urine WBC (0-5) /hpf Ur Squamous Epith Cells (0-4) /hpf Urine Bacteria (None) /hpf Urine Mucus (None) /hpf Microbiology - Last 24 Hours (Table) 12/27/16 18:13 Gram Stain - Final Cervix Genital Culture - Preliminary 12/27/16 16:16 Urine Culture - Preliminary Urine,Voided Assessment and Plan (1) Hepatitis A Narrative/Plan: Jaundice elevated liver enzymes secondary to acute viral hepatitis A with underlying chronic hepatitis C. Possible superimposed drug induced hepatitis with recent Heroin usage. Status: Acute (2) Chronic hepatitis C Status: Acute Plan: 1. Contact precautions. Ultrasound abdomen. AFP marker. Quantitative hepatitis C measurement genotype. Daily PT/INR/CMP. Supportive measures. Will follow with you. Thank you for this kind referral and the opportunity to participate in the care of your patient. This consultation was discussed with Dr. Aragon. The impression and plan of care have been directed as dictated.
[2016-12-28] MEDS ORDERED: KETOROLAC 30 MG/ML 1 ML VIAL IVP PRN (14:24)
--- NOTE | 2016-12-28 15:40 | XR ---
EXAMINATION TYPE: XR chest 1V portable DATE OF EXAM: 12/28/2016 COMPARISON: 05/02/2013 HISTORY: Chest pain TECHNIQUE: Single frontal view of the chest is obtained. FINDINGS: There is right infrahilar patchy density which may reflect developing. Correlate clinically and progr ess studies until resolution are advised. The cardiac silhouette size is within normal limits. The osseous structures are intact. IMPRESSION: 1. There is right infrahilar patchy density which may reflect developing. Correlate clinically and p rogress studies until resolution are advised.
[2016-12-28] MEDS: PHYTONADIONE ORAL 5 MG/5 ML ORAL.SYRG PO SCH (18:22)
--- NOTE | 2016-12-28 20:26 | PN ---
PROGRESS NOTE DATE OF SERVICE: 12/28/2016 This 31-year-old woman who was admitted with jaundice and elevated LFTs is being closely monitored at this time. The patient also had hepatitis A positive. The patient has extensive history of polysubstance abuse, including IV drug abuse as well as noncompliance. The bilirubin is 8.2 and AST is 884. ALT is 1701 at this time. Past medical history reviewed. REVIEW OF SYSTEM: CARDIOVASCULAR SYSTEM: No angina. RESPIRATION: No cough. GI: As mentioned earlier. : No dysuria, retention. NERVOUS SYSTEM: Diffuse weakness. CURRENT MEDICATIONS: Current medications are reviewed and include: 1. Rocephin 1 gram IV daily. 2. Dilaudid 0.5 q.4 p.r.n. 3. Motrin. 4. Toradol. 5. Ativan. 6. Narcan. 7. Zofran. 8. Protonix. PHYSICAL EXAM: Patient is alert, oriented x2. Pulse 66, blood pressure 115/77, respiration 18, temperature 98.3, pulse ox 96% on room air. HEENT: Conjunctivae normal. icteric. NECK: No jugular venous distention. No carotid bruit. No lymph node enlargement. CARDIOVASCULAR SYSTEM: S1, S2 muffled. No S3. No S4. RESPIRATION: Breath sounds diminished at the bases. No rhonchi. No crackles. ABDOMEN: Soft, non-tender. No mass palpable. LEGS: No edema. No swelling. NERVOUS SYSTEM: Higher functions as mentioned earlier. Moves all 4 limbs. No focal sensory or motor deficit. LYMPHATICS: No lymph node palpable in neck, axillae or groin. SKIN: No ulcer, rash, bleeding. LABS: INR is 1.6. Glucose 126. Total bilirubin is 8.2, AST is 884, and ALT is 1701. Ammonia is 29. UA noted. The cultures are pending at this time. ASSESSMENT: 1. Acute hepatitis, possibly acute hepatitis A on top of chronic hepatitis C. 2. Hypokalemia. 3. Coagulopathy secondary to chronic liver disease and increased AST, ALT, bilirubin. 4. Urinary tract infection. 5. History of IV drug abuse. 6. History of MRSA. 7. History of anxiety and depression. 8. History of THC. 9. History of nicotine dependence. 10.History of noncompliance. RECOMMENDATIONS AND DISCUSSION: I recommend to continue current medication, continue symptomatic treatment, continue with IV antibiotics. I recommend repeat labs. to be notified. Also recommend evaluation by Dr. Aragon. The prognosis is guarded because of the multiple complex medical issues. Contact precautions. Further recommendations to follow. Will order repeat labs. Monitor the coagulopathy, also. INR is 1.6. We will initiate vitamin K as well. MMODL / IJN: [id number] / MTDD
[2016-12-29] MEDS: LORazepam 2 MG/ML SYRINGE IV PRN ×4 (00:01→21:22)
[2016-12-29] MEDS: HYDROmorphone 1 MG/ML 1 ML SYRINGE IVP PRN ×8 (00:01→21:17)
[2016-12-29] MEDS: SODIUM CHLORIDE 0.9% 1,000 ML IV SCH ×3 (03:04→21:29)
[2016-12-29] MEDS: PANTOPRAZOLE 40 MG/10 ML VIAL IV SCH (07:51)
[2016-12-29 08:25] LABS: AST 512 U/L (14-36); Alkaline Phosphatase 204 U/L (38-126); Anion Gap 6 mmol/L; Blood Urea Nitrogen 5 mg/dL (7-17); Calcium 7.7 mg/dL (8.4-10.2); Carbon Dioxide 24 mmol/L (22-30); Chloride 108 mmol/L (98-107); Glucose 86 mg/dL (74-99); INR 1.4 (<1.2); Non-African American GFR(MDRD) >60 (>60 ml/min/1.73 sqM); Potassium 3.4 mmol/L (3.5-5.1); Prothrombin Time 13.9 sec (9.0-12.0); Sodium 138 mmol/L (137-145); Total Bilirubin 8.1 mg/dL (0.2-1.3)
[2016-12-29 08:34] LABS: ALT 1279 U/L (9-52)
[2016-12-29] MEDS: PHYTONADIONE ORAL 5 MG/5 ML ORAL.SYRG PO SCH (09:26)
[2016-12-29 09:40] LABS: Aty Lym Flag Slight; CH 28.8; CHCM 31.7; HDW 2.94; Hypochromasia Slight; MCH 29.8 pg (25.0-35.0); MCHC 32.6 g/dL (31.0-37.0); MCV 91.6 fL (80.0-100.0); Mean Platelet Volume 10.2; RBC 4.37 m/uL (3.80-5.40); RDW 15.6 % (11.5-15.5); WBC 3.2 k/uL (3.8-10.6); WBC (Perox) 3.76
--- NOTE | 2016-12-29 09:42 | P.PN ---
Subjective Principal diagnosis: viral hepatitis A, chronic hepatitis C, Heroin abuse 31-year-old female admitted with acute viral hepatitis A with underlying chronic hepatitis C and recent IVDA heroin abuse. Reports diffuse abdominal pain requesting pain meds. Ultrasound abdomen pending. Chemistries today INR 1.4 improved from 1.6 yesterday. LFTs improving; Total bilirubin 8.1. AST 512. ALT 1279. Alkaline phosphatase 204. T-max 99.7. AFP 4.8. Objective - Vital Signs Vital signs: Vital Signs Temp 99.7 F H 12/29/16 08:04 Pulse 97 12/29/16 08:04 Resp 18 12/29/16 08:04 BP 109/74 12/29/16 08:04 Pulse Ox 96 12/28/16 17:59 Intake & Output 12/28/16 12/29/16 12/29/16 18:59 06:59 18:59 Intake Total 1340 2342 Balance 1340 2342 Intake: Intake, IV Titration 840 1392 Amount Sodium Chloride 0.9% 1, 840 1392 000 ml @ 120 mls/hr IV . Q8H20M [facility] Rx#:[id number] Oral 500 950 Other: Voiding Method Toilet Toilet Toilet # Voids 4 3 - Exam General appearance: The patient is alert, oriented, in no acute distress. Jaundice. HET: Head is normocephalic and atraumatic. Pupils are equal and reactive. Sclerae icterus. Oropharynx is clear without lesions. Neck: Supple without lymphadenopathy. Trachea midline. Heart: S1 S2. Regular rate and rhythm. Lungs: No crackles or wheezes are heard. Abdomen: Soft, diffuse mild tenderness across mid abdomen, nondistended with bowel sounds. No peritoneal signs. No palpable organomegaly or masses. Extremities: Normal skin color and turgor. No cyanosis, rash, ulceration, clubbing, or edema. Radial and pedal pulses are 2/4 bilaterally. Neurological: No focal deficits. Strength and sensation are grossly intact. - Labs CBC & Chem 7: 12/28/16 08:24 12/29/16 07:39 Labs: Abnormal Lab Results - Last 24 Hours (Table) 12/28/16 12/28/16 12/29/16 Range/Units 08:24 08:24 07:39 WBC 2.9 L (3.8-10.6) k/uL Plt Count 139 L (150-450) k/uL PT 13.9 H (9.0-12.0) sec INR 1.4 H (<1.2) Potassium (3.5-5.1) mmol/L Chloride 109 H (98-107) mmol/L Carbon Dioxide 20 L (22-30) mmol/L BUN (7-17) mg/dL Glucose 126 H (74-99) mg/dL Calcium 7.7 L (8.4-10.2) mg/dL Total Bilirubin 8.2 H (0.2-1.3) mg/dL AST 884 H (14-36) U/L ALT 1701 H (9-52) U/L Alkaline Phosphatase 180 H (38-126) U/L Total Protein 6.0 L (6.3-8.2) g/dL Albumin 2.6 L (3.5-5.0) g/dL 12/29/16 Range/Units 07:39 WBC (3.8-10.6) k/uL Plt Count (150-450) k/uL PT (9.0-12.0) sec INR (<1.2) Potassium 3.4 L (3.5-5.1) mmol/L Chloride 108 H (98-107) mmol/L Carbon Dioxide (22-30) mmol/L BUN 5 L (7-17) mg/dL Glucose (74-99) mg/dL Calcium 7.7 L (8.4-10.2) mg/dL Total Bilirubin 8.1 H (0.2-1.3) mg/dL AST 512 H (14-36) U/L ALT 1279 H (9-52) U/L Alkaline Phosphatase 204 H (38-126) U/L Total Protein 6.0 L (6.3-8.2) g/dL Albumin 2.5 L (3.5-5.0) g/dL Microbiology - Last 24 Hours (Table) 12/27/16 18:23 Blood Culture - Preliminary Blood No Growth after 24 hours 12/27/16 16:16 Urine Culture - Preliminary Urine,Voided Gram Neg Bacilli Strep agalactiae - (group b) 12/27/16 18:13 Gram Stain - Final Cervix Genital Culture - Preliminary Assessment and Plan (1) Hepatitis A Narrative/Plan: Jaundice elevated liver enzymes secondary to acute viral hepatitis A with underlying chronic hepatitis C. Possible superimposed drug induced hepatitis with recent Heroin usage. Status: Acute (2) Chronic hepatitis C Status: Acute Plan: 1. Contact precautions. Ultrasound abdomen pending. AFP marker reviewed. Quantitative hepatitis C measurement genotype pending. Daily PT/INR/CMP. Supportive measures. Will follow with you. Assessment and plan a care discussed with Dr. Dean
[2016-12-29 10:00] LABS: Chlamydia/GC Source Vaginal
[2016-12-29 11:19] LABS: Add Differential Manual Differential
[2016-12-29 11:32] LABS: Band Neutrophils % 4 %; Nucleated Red Blood Cells 0 /100 WBC (0-0); Total Cells Counted 100
[2016-12-29 11:33] LABS: Manual Review Performed
--- NOTE | 2016-12-29 13:12 | US ---
EXAMINATION TYPE: US abdomen limited DATE OF EXAM: 12/29/2016 COMPARISON: CT 11/07/2016 CLINICAL HISTORY: hepatitis. Hepatitis A and C; jaundice x 1 week per patient; nausea, vomiting, abdo mitesh pain; gallbladder removed EXAM MEASUREMENTS: Liver Length: 19.0 cm Gallbladder Wall: surgically removed CBD: 0.5 cm Right Kidney: 12.3 x 7.1 x 4.7 cm Pancreas: oval, hypoechoic mass at level of head of pancreas = 1.9 x 1.8 x 1.3cm and observed by 2 t echs Liver: no masses seen in the liver is enlarged Gallbladder: surgically removed Evidence for sonographic Hernandez's sign: abd. tenderness CBD: wnl Right Kidney: wnl Small Right Pleural effusion is noted. Small amount of fluid is noted inferior hepatorenal recess IMPRESSION: Hepatomegaly. Lesion seen at the level of the head of the pancreas may represent enlarged lymph node. MRI or CT the pancreas may be of benefit. Small amount of ascites. Postop change.
[2016-12-29] MEDS ORDERED: RX INFO: IV CONTRAST WAS GIVEN 1 EACH MISC MISCELLANE PRN (13:32)
[2016-12-29] MEDS: IOHEXOL 350 MG/ML 25 ML BOTTLE (ORAL USE) PO PRN ×2 (13:47→14:43)
--- NOTE | 2016-12-29 15:34 | CT ---
EXAMINATION TYPE: CT abdomen pelvis w con DATE OF EXAM: 12/29/2016 COMPARISON: 11/07/2016 HISTORY: Abnormal ultrasound and jaundice CT DLP: 989 mGycm CONTRAST: CT scan of the abdomen and pelvis is performed with Oral Contrast and with IV Contrast, patient injec roberto with 100 mL of Omnipaque 300. FINDINGS: LUNG BASES-: Bilateral pleural effusions are noted right greater than left measuring 3 cm AP dimension on the righ t. There is right basilar compressive atelectasis. LIVER/GB: Cholecystectomy clips are in place. There is evidence of hepatomegaly. I do see evidence of periportal edema which is nonspecific. No space occupying hepatic lesion. No definite CBD dilatat ion. PANCREAS: There is a 2 cm soft tissue mass adjacent to the pancreatic neck which is believed to be ex trinsic to the pancreas. In addition there is a an elongated soft tissue mass adjacent to the nikki v ein which measures 3.2 x 1.1 cm. This may reflect periportal and peripancreatic adenopathy. No defini te intrinsic pancreatic lesion is identified with certainty. SPLEEN: There is splenomegaly at 13.8 cm AP dimension. No lesion seen. ADRENALS: No nodule. No thickening. KIDNEYS/BLADDER: No hydronephrosis. No nephrolithiasis. No disctinct renal mass. Urinary bladder g rossly unremarkable. BOWEL: Normal appendix. Small bowel wall thickening may be related to hypoalbuminemia. Colon is of no rmal caliber. GENITAL ORGANS: No gross abnormality. LYMPH NODES: No greater than 1cm abdominal or pelvic lymph nodes are appreciated. AORTA: No significant abnormality. OSSEOUS STRUCTURES: No significant abnormality is seen. OTHER: There is ascites within the abdomen and extending into the paracolic gutters and within the pe lvis. Early features of anasarca. Correlate clinically. IMPRESSION: 1. Hepatosplenomegaly with bilateral pleural effusions and intra-abdominal ascites. Early features of anasarca noted. 2. 2 soft tissue masses are seen adjacent to to the pancreas and nikki hepatis which may reflect kory opathy. No definite intrinsic pancreatic lesion is identified. 3. Periportal edema which may reflect hepatic edema.
[2016-12-29 23:28] VITALS: PULSE 98; RESP 17
[2016-12-30] MEDS: HYDROmorphone 1 MG/ML 1 ML SYRINGE IVP PRN ×4 (00:19→10:31)
[2016-12-30] MEDS: LORazepam 2 MG/ML SYRINGE IV PRN ×2 (03:28→09:15)
[2016-12-30] MEDS: SODIUM CHLORIDE 0.9% 1,000 ML IV SCH (03:32)
[2016-12-30 07:08] LABS: INR 1.3 (<1.2)
[2016-12-30 07:09] LABS: Prothrombin Time 12.9 sec (9.0-12.0)
[2016-12-30 07:10] LABS: Aty Lym Flag Slight; CH 28.7; CHCM 32.1; HCT 39.3 % (34.0-46.0); HDW 2.95; HGB 12.8 gm/dL (11.4-16.0); MCH 29.6 pg (25.0-35.0); MCHC 32.7 g/dL (31.0-37.0); MCV 90.4 fL (80.0-100.0); Mean Platelet Volume 9.2; RBC 4.34 m/uL (3.80-5.40); RDW 15.7 % (11.5-15.5); WBC 3.5 k/uL (3.8-10.6); WBC (Perox) 4.33
[2016-12-30 07:30] LABS: ALT 938 U/L (9-52); AST 332 U/L (14-36); Alkaline Phosphatase 289 U/L (38-126); Anion Gap 9 mmol/L; Blood Urea Nitrogen 5 mg/dL (7-17); Calcium 8.1 mg/dL (8.4-10.2); Carbon Dioxide 23 mmol/L (22-30); Chloride 106 mmol/L (98-107); Glucose 92 mg/dL (74-99); Non-African American GFR(MDRD) >60 (>60 ml/min/1.73 sqM); Potassium 3.3 mmol/L (3.5-5.1); Sodium 138 mmol/L (137-145); Total Bilirubin 7.7 mg/dL (0.2-1.3); Total Protein 6.3 g/dL (6.3-8.2)
[2016-12-30] MEDS ORDERED: PANTOPRAZOLE 40 MG TABLET PO SCH (07:30)
[2016-12-30 08:04] VITALS: BP 101/68; TEMP 99.2
[2016-12-30 08:08] LABS: Add Differential Manual Differential
[2016-12-30 08:12] LABS: Band Neutrophils % 1 %; Manual Review Performed; Nucleated Red Blood Cells 0 /100 WBC (0-0); Total Cells Counted 200; Toxic Granulation Present
[2016-12-30] MEDS: PHYTONADIONE ORAL 5 MG/5 ML ORAL.SYRG PO SCH (09:29)
--- NOTE | 2016-12-30 11:48 | PN ---
PROGRESS NOTE DATE OF SERVICE: 12/29/2016 INTERVAL HISTORY: This 31-year-old woman who was admitted with hepatitis C also had a pancreatic mass in the ultrasound and CT scan has been ordered. No chest pain. No palpitations. No fever. PHYSICAL EXAMINATION: On exam, alert, oriented, pulse 97, blood pressure 109/74, respiration 18, temperature 99.7, pulse ox 98% on room air. HEENT: Conjunctivae normal. Neck: No jugular venous distention. Cardiovascular: S1, S2. Respiration: Breath sounds diminished in the bases. No rhonchi. No crackles. Abdomen is soft. No guarding. No rigidity. No mass palpable. Legs: No edema. No swelling. Central nervous system: No focal deficits. LABORATORY DATA: WBC 3.2, LFTs are improving. AST is 512 and ALT is 1279. ASSESSMENT: 1. Acute hepatitis with possibly acute hepatitis A on top of chronic hepatitis C. 2. Hypokalemia. 3. Pancreatic mass and lymphadenopathy for evaluation. Rule out pancreatitis/or malignancy. 4. Coagulopathy secondary to chronic liver disease. 5. Increased AST and ALT, bilirubin with hepatitis. 6. Urinary tract infection. 7. History of IV drug abuse. 9. History of noncompliance. 10.History of anxiety/depression. 11.History of THC. 12.History of nicotine dependence. RECOMMENDATIONS AND DISCUSSION: Continue current management and symptomatic treatment. Otherwise monitor the patient closely. Guarded prognosis because of multiple complex medical issues and the culture showed gram-negative bacilli and strep agalactiae. IV antibiotics will be continued and continue to monitor. Prognosis guarded. MMODL / IJN: [id number] / MTDD
[2017-01-01 08:29] LABS: HCV Qualitative Result DETECTED (Not detected)
== END 2016-12-30 10:48 | disposition left against medical advice (07) | DRG 442 ==
LOC: EC 15:38 → 5MS5E 18:21
PROVIDERS: ADMIT Hospitalist; ATTEND Hospitalist
DX: B15.9 Hepatitis A without hepatic coma (principal); D68.4 Acquired coagulation factor deficiency; N39.0 Urinary tract infection, site not specified; B18.2 Chronic viral hepatitis C; E87.6 Hypokalemia; F11.10 Opioid abuse, uncomplicated; F17.200 Nicotine dependence, unspecified, uncomplicated; G25.81 Restless legs syndrome; K86.9 Disease of pancreas, unspecified; Z79.899 Other long term (current) drug therapy; Z81.1 Family history of alcohol abuse and dependence; Z86.14 Personal history of Methicillin resistant Staphylococcus aureus infection; Z91.19 Patient's noncompliance with other medical treatment and regimen; Z88.5 Allergy status to narcotic agent; Z88.8 Allergy status to other drugs, medicaments and biological substances; F12.90 Cannabis use, unspecified, uncomplicated; G57.00 Lesion of sciatic nerve, unspecified lower limb
CPT/HCPCS: 36415; 71010; 74177; 76705; 80053; 80074; 80306; 81001; 81025; 82105; 82140; 82150; 83690; 85025; 85610; 85730; 87040; 87070; 87077; 87086; 87186; 87205; 87491; 87522; 87591; 87808; 96361; 96365; 96368; 96375; 99285

== ENCOUNTER 2017-03-07 07:28 | Emergency (ER) | payer OTHER ==
[2017-03-07 07:36] VITALS: BP 142/79; PULSE 110; RESP 17; TEMP 98
[2017-03-07] MEDS ORDERED: SULFAMETHOX-TMP 800-160MG 1 EACH TAB PO STA (07:43)
[2017-03-07] MEDS ORDERED: DIPH,PERTUS(ACELL)TETVAC-LF 0.5 ML VIAL IM ONE (07:43)
[2017-03-07] MEDS ORDERED: CEPHALEXIN 500 MG CAP PO STA (07:43)
--- NOTE | 2017-03-07 08:12 | XR ---
EXAMINATION TYPE: XR foot complete RT DATE OF EXAM: 03/07/2017 CLINICAL HISTORY: Medial foot pain from nonhealing wound. TECHNIQUE: Frontal, lateral, and oblique images of the right foot are obtained. COMPARISON: Right foot x-ray May 05, 2014 FINDINGS: There is no acute fracture/dislocation evident in the right foot. The joint spaces in the right foot appear within normal limits. No suspicious cortical destruction or periosteal reaction i s seen. The overlying soft tissue appears unremarkable. IMPRESSION: There is no convincing radiographic evidence for acute osteomyelitis. No significant harpreet nge from prior.
--- NOTE | 2017-03-07 08:58 | ED ---
Lower Extremity Injury HPI - General Chief Complaint: Extremity Injury, Lower Stated Complaint: rt foot pain Time Seen by Provider: 03/07/17 07:39 Source: patient Mode of arrival: ambulatory Limitations: no limitations - History of Present Illness Initial Comments: Patient complains of a recent abrasion on the right ankle. She has no fevers or chills. She has no weakness. She states there was some purulent discharge. There was an abscess, which she states has already drained. However there is still some ongoing redness. She has no numbness or tingling in the foot. She has no weakness or trouble walking. - Related Data Home Medications Medication Instructions Recorded Confirmed Gabapentin 800 mg PO QID 11/07/16 03/07/17 Previous Rx's Medication Instructions Recorded Cephalexin [Keflex] 500 mg PO Q6HR #40 cap 03/07/17 Sulfamethox-Tmp 800-160Mg [Bactrim 2 tab PO Q12HR #40 tab 03/07/17 DS 800-160 mg] Allergies Allergy/AdvReac Type Severity Reaction Status Date / Time morphine Allergy Unknown Rash/Hives Verified 03/07/17 07:43 metoclopramide [From Reglan] AdvReac Itching Verified 03/07/17 07:43 Review of Systems ROS Statement: Those systems with pertinent positive or pertinent negative responses have been documented in the HPI. ROS Other: All systems not noted in ROS Statement are negative. Past Medical History Past Medical History: No Reported History Additional Past Medical History / Comment(s): Other HX: Hep C, sciatica, MRSA left arm 2014, heroin abuse, restless leg syndrome History of Any Multi-Drug Resistant Organisms: MRSA Date of last positivie culture/infection: 05/06/2014 MDRO Source:: Left Elbow Past Surgical History: Cholecystectomy Additional Past Surgical History / Comment(s): needle removed from right arm 2012 Past Anesthesia/Blood Transfusion Reactions: No Reported Reaction Additional Past Anesthesia/Blood Transfusion Reaction / Comment(s): Pt states she has never recieved blood. Past Psychological History: Anxiety, Depression Smoking Status: Current every day smoker Past Alcohol Use History: Rare Past Drug Use History: None Reported, Cocaine, Heroin, Marijuana - Past Family History Father Additional Family Medical History / Comment(s): Father is an alcoholic. Mother Additional Family Medical History / Comment(s): Mother is an alcoholic General Exam Limitations: no limitations Head exam: Present: atraumatic, normocephalic, normal inspection Respiratory exam: Absent: respiratory distress Back exam: Present: normal inspection Neurological exam: Present: alert, oriented X3, CN II-XII intact Psychiatric exam: Present: normal affect, normal mood Skin exam: Present: dry, other (Cellulitis over the right ankle) Course Vital Signs 03/07/17 07:33 Temperature 98 F Pulse Rate 110 H Respiratory 17 Rate Blood Pressure 142/79 O2 Sat by Pulse 97 Oximetry Medical Decision Making - Medical Decision Making Patient presents with a small area of cellulitis, with no evidence of fluctuance or abscess. I updated her tetanus immunization. I gave her Bactrim and Keflex in the emergency department. I obtained x-rays which are negative for osteomyelitis or retained foreign bodies. Patient will be prescribed Bactrim and Keflex to go home on. Disposition Clinical Impression: Cellulitis Disposition: HOME SELF-CARE Condition: Good Instructions: Cellulitis (ED) Prescriptions: Cephalexin [Keflex] 500 mg PO Q6HR #40 cap Sulfamethox-Tmp 800-160Mg [Bactrim DS 800-160 mg] 2 tab PO Q12HR #40 tab Referrals: None,Stated [Primary Care Provider] - 1-2 days
== END 2017-03-07 08:54 | disposition home or self-care (01) ==
LOC: EC 07:28
DX: L03.115 Cellulitis of right lower limb (principal); G25.81 Restless legs syndrome; F17.200 Nicotine dependence, unspecified, uncomplicated; Z86.14 Personal history of Methicillin resistant Staphylococcus aureus infection; Z79.899 Other long term (current) drug therapy; Z88.5 Allergy status to narcotic agent; Z88.8 Allergy status to other drugs, medicaments and biological substances; Z23 Encounter for immunization; W45.8XXA Other foreign body or object entering through skin, initial encounter
CPT/HCPCS: 90471; 90715; 99283

== ENCOUNTER 2017-04-06 00:50 | Emergency (ER) | payer OTHER ==
[2017-04-06] MEDS ORDERED: ONDANSETRON 4 MG/2 ML VIAL IVP STA (01:09)
[2017-04-06] MEDS ORDERED: SODIUM CHLORIDE 0.9% 1,000 ML IV STA (01:09)
--- NOTE | 2017-04-06 01:16 | ED ---
General Adult HPI - General Chief complaint: Nausea/Vomiting/Diarrhea Stated complaint: Flu Symptoms Time Seen by Provider: 04/06/17 01:04 Source: patient, RN notes reviewed Mode of arrival: ambulatory Limitations: no limitations - History of Present Illness Initial comments: 32 yo female presents to the ER with cc of nausea, vomiting, and diarrhea. Patient states that this started today. Patient states she was at work entrance they sent her here. Patient denies any fever but states she has had chills. She denies any abdominal pain or discomfort with this. She denies any blood. There is been no other symptoms and the patient. She is otherwise feeling well. Patient denies any recent fever, chills, shortness of breath, chest pain, back pain, abdominal pain, numbness or tingling, dysuria or hematuria, constipation or headaches or visual changes, or any other current symptoms. - Related Data Home Medications Medication Instructions Recorded Confirmed Gabapentin 800 mg PO QID 11/07/16 03/07/17 Previous Rx's Medication Instructions Recorded Cephalexin [Keflex] 500 mg PO Q6HR #40 cap 03/07/17 Sulfamethox-Tmp 800-160Mg [Bactrim 2 tab PO Q12HR #40 tab 03/07/17 DS 800-160 mg] Ondansetron Odt [Zofran ODT] 4 mg PO Q8HR PRN #20 tab 04/06/17 Allergies Allergy/AdvReac Type Severity Reaction Status Date / Time morphine Allergy Unknown Rash/Hives Verified 04/06/17 00:59 metoclopramide [From Reglan] AdvReac Itching Verified 04/06/17 00:59 Review of Systems ROS Statement: Those systems with pertinent positive or pertinent negative responses have been documented in the HPI. ROS Other: All systems not noted in ROS Statement are negative. Past Medical History Past Medical History: No Reported History Additional Past Medical History / Comment(s): Other HX: Hep C, sciatica, MRSA left arm 2014, heroin abuse, restless leg syndrome History of Any Multi-Drug Resistant Organisms: MRSA Date of last positivie culture/infection: 05/06/2014 MDRO Source:: Left Elbow Past Surgical History: Cholecystectomy Additional Past Surgical History / Comment(s): needle removed from right arm 2012 Past Anesthesia/Blood Transfusion Reactions: No Reported Reaction Additional Past Anesthesia/Blood Transfusion Reaction / Comment(s): Pt states she has never recieved blood. Past Psychological History: Anxiety, Depression Smoking Status: Current every day smoker Past Alcohol Use History: Rare Past Drug Use History: None Reported, Cocaine, Heroin, Marijuana - Past Family History Father Additional Family Medical History / Comment(s): Father is an alcoholic. Mother Additional Family Medical History / Comment(s): Mother is an alcoholic General Exam - General Exam Comments Initial Comments: General: The patient is awake and alert, in no distress, and does not appear acutely ill. Eye: Pupils are equal, round and reactive to light. Ears, nose, mouth and throat: There are moist mucous membranes. Neck: The neck is supple, there is no tenderness. Cardiovascular: There is a regular rate and rhythm. No murmur, rub or gallop is appreciated. Respiratory: Lungs are clear to auscultation, respirations are non-labored, breath sounds are equal. No wheezes, stridor, rales, or rhonchi. Gastrointestinal: Soft, non-distended, non-tender abdomen without masses or organomegaly noted. There is no rebound or guarding present. No CVA tenderness. Bowel sounds are unremarkable. Back: There is no tenderness to palpation in the midline. There is no obvious deformity. No rashes noted. Musculoskeletal: Normal ROM, no tenderness, There is no pedal edema. There is no calf tenderness or swelling. Sensation intact. Pulses equal bilaterally 2+. Neurological: CN II-XII intact, There are no obvious motor or sensory deficits. Coordination appears grossly intact. Speech is normal. Skin: Skin is warm and dry and no rashes or lesions are noted. Psychiatric: Cooperative, appropriate mood & affect, normal judgment. Limitations: no limitations Course Vital Signs 04/06/17 00:57 Temperature 99.4 F Pulse Rate 106 H Respiratory 16 Rate Blood Pressure 128/78 O2 Sat by Pulse 95 Oximetry - Reevaluation(s) Reevaluation #1: 04/06/17 02:12 Liver enzymes reviewed and compared to previous and do appear to be improved. Discussed continued follow-up with her doctor. Patient agreement plan. Medical Decision Making - Medical Decision Making 32-year-old female presents emergency Department chief complaint of nausea vomiting diarrhea. She said better with fluids and nausea meds home. We will give her meds for home. We discussed follow-up return parameters. We discussed for most likely gastroenteritis however we discussed other etiologies and return parameters. She is agreement this plan all questions have been answered. - Lab Data Result diagrams: 04/06/17 01:45 04/06/17 01:45 Lab Results 04/06/17 04/06/17 04/06/17 Range/Units 01:45 01:45 01:50 WBC 8.3 (3.8-10.6) k/uL RBC 5.05 (3.80-5.40) m/uL Hgb 15.6 (11.4-16.0) gm/dL Hct 47.0 H (34.0-46.0) % MCV 93.1 (80.0-100.0) fL MCH 31.0 (25.0-35.0) pg MCHC 33.2 (31.0-37.0) g/dL RDW 12.3 (11.5-15.5) % Plt Count 225 (150-450) k/uL Neutrophils % 69 % Lymphocytes % 22 % Monocytes % 6 % Eosinophils % 2 % Basophils % 1 % Neutrophils # 5.7 (1.3-7.7) k/uL Lymphocytes # 1.8 (1.0-4.8) k/uL Monocytes # 0.5 (0-1.0) k/uL Eosinophils # 0.1 (0-0.7) k/uL Basophils # 0.0 (0-0.2) k/uL Sodium 138 (137-145) mmol/L Potassium 3.5 (3.5-5.1) mmol/L Chloride 100 (98-107) mmol/L Carbon Dioxide 25 (22-30) mmol/L Anion Gap 13 mmol/L BUN 12 (7-17) mg/dL Creatinine 0.90 (0.52-1.04) mg/dL Est GFR (MDRD) Af Amer >60 (>60 ml/min/1.73 sqM) Est GFR (MDRD) Non-Af >60 (>60 ml/min/1.73 sqM) Glucose 122 H (74-99) mg/dL Calcium 9.6 (8.4-10.2) mg/dL Total Bilirubin 0.7 (0.2-1.3) mg/dL AST 182 H (14-36) U/L ALT 83 H (9-52) U/L Alkaline Phosphatase 118 (38-126) U/L Total Protein 8.1 (6.3-8.2) g/dL Albumin 4.4 (3.5-5.0) g/dL Urine Color Urine Appearance (Clear) Urine pH (5.0-8.0) Ur Specific [place] (1.001-1.035) Urine Protein (Negative) Urine Glucose (UA) (Negative) Urine Ketones (Negative) Urine Blood (Negative) Urine Nitrite (Negative) Urine Bilirubin (Negative) Urine Urobilinogen (<2.0) mg/dL Ur Leukocyte Esterase (Negative) Urine HCG, Qual Not Detected (Not Detectd) 04/06/17 Range/Units 01:50 WBC (3.8-10.6) k/uL RBC (3.80-5.40) m/uL Hgb (11.4-16.0) gm/dL Hct (34.0-46.0) % MCV (80.0-100.0) fL MCH (25.0-35.0) pg MCHC (31.0-37.0) g/dL RDW (11.5-15.5) % Plt Count (150-450) k/uL Neutrophils % % Lymphocytes % % Monocytes % % Eosinophils % % Basophils % % Neutrophils # (1.3-7.7) k/uL Lymphocytes # (1.0-4.8) k/uL Monocytes # (0-1.0) k/uL Eosinophils # (0-0.7) k/uL Basophils # (0-0.2) k/uL Sodium (137-145) mmol/L Potassium (3.5-5.1) mmol/L Chloride (98-107) mmol/L Carbon Dioxide (22-30) mmol/L Anion Gap mmol/L BUN (7-17) mg/dL Creatinine (0.52-1.04) mg/dL Est GFR (MDRD) Af Amer (>60 ml/min/1.73 sqM) Est GFR (MDRD) Non-Af (>60 ml/min/1.73 sqM) Glucose (74-99) mg/dL Calcium (8.4-10.2) mg/dL Total Bilirubin (0.2-1.3) mg/dL AST (14-36) U/L ALT (9-52) U/L Alkaline Phosphatase (38-126) U/L Total Protein (6.3-8.2) g/dL Albumin (3.5-5.0) g/dL Urine Color Light Yellow Urine Appearance Clear (Clear) Urine pH 6.5 (5.0-8.0) Ur Specific [place] 1.005 (1.001-1.035) Urine Protein Negative (Negative) Urine Glucose (UA) Negative (Negative) Urine Ketones Negative (Negative) Urine Blood Negative (Negative) Urine Nitrite Negative (Negative) Urine Bilirubin Negative (Negative) Urine Urobilinogen <2.0 (<2.0) mg/dL Ur Leukocyte Esterase Negative (Negative) Urine HCG, Qual (Not Detectd) - Radiology Data Radiology results: report reviewed, image reviewed Disposition Clinical Impression: Nausea & vomiting, Diarrhea Disposition: HOME SELF-CARE Condition: Stable Instructions: Acute Nausea and Vomiting (ED) Additional Instructions: Please use medication as discussed. Please follow up with family doctor if symptoms have not improved over the next two days. Please return to the emergency room if your symptoms increase or worsen or for any other concerns. Prescriptions: Ondansetron Odt [Zofran ODT] 4 mg PO Q8HR PRN #20 tab PRN Reason: Nausea Referrals: Silvia Araya MD [REFERRING] - 1-2 days Time of Disposition: 02:47
[2017-04-06 02:02] LABS: Appearance,Urine Clear (Clear); Bilirubin,Urine Negative (Negative); Glucose,Urine (UA) Negative (Negative); Ketones,Urine Negative (Negative); Leukocyte Esterase,Urine Negative (Negative); Nitrite,Urine Negative (Negative); PH, Urine 6.5 (5.0-8.0); Protein,Urine Negative (Negative); Specific Gravity,Urine 1.005 (1.001-1.035); UA Billing (MACRO vs. MICRO) CHEM; Urobilinogen,Urine <2.0 mg/dL (<2.0)
[2017-04-06 02:03] LABS: ALT 83 U/L (9-52); AST 182 U/L (14-36); Alkaline Phosphatase 118 U/L (38-126); Anion Gap 13 mmol/L; Blood Urea Nitrogen 12 mg/dL (7-17); Calcium 9.6 mg/dL (8.4-10.2); Carbon Dioxide 25 mmol/L (22-30); Chloride 100 mmol/L (98-107); Glucose 122 mg/dL (74-99); Non-African American GFR(MDRD) >60 (>60 ml/min/1.73 sqM); Potassium 3.5 mmol/L (3.5-5.1); Sodium 138 mmol/L (137-145); Total Bilirubin 0.7 mg/dL (0.2-1.3); Total Protein 8.1 g/dL (6.3-8.2)
[2017-04-06 02:04] LABS: Basophils % (A) 1 %; CH 32.2; CHCM 34.7; Eosinophils # (A) 0.1 k/uL (0-0.7); Eosinophils % (A) 2 %; HDW 3.24; HGB 15.6 gm/dL (11.4-16.0); Luc # (Auto) 0.12; Luc % (Auto) 1; Lymphocytes # (A) 1.8 k/uL (1.0-4.8); Lymphocytes % (A) 22 %; MCHC 33.2 g/dL (31.0-37.0); MCV 93.1 fL (80.0-100.0); Mean Platelet Volume 7.7; Monocytes # (A) 0.5 k/uL (0-1.0); Monocytes % (A) 6 %; Neutrophils # (A) 5.7 k/uL (1.3-7.7); Neutrophils % (A) 69 %; RBC 5.05 m/uL (3.80-5.40); RDW 12.3 % (11.5-15.5); WBC 8.3 k/uL (3.8-10.6); WBC (Perox) 7.94
--- NOTE | 2017-04-06 02:46 | XR ---
EXAM: XR Abdomen Complete, 2 or More Views CLINICAL HISTORY: Reason: Pain TECHNIQUE: Frontal view of the abdomen/pelvis with upright view of the abdomen. COMPARISON: 12/29/2016 FINDINGS: Intraperitoneal space: No pneumatosis or pneumoperitoneum. Gastrointestinal tract: Nonobstructive bowel gas pattern. Bones/joints: No acute osseous abnormality. Soft tissues: Surgical clips project over the quadrant. IMPRESSION: No acute findings.
[2017-04-06 03:09] VITALS: BP 120/78; PULSE 84; RESP 18; TEMP 97.7
== END 2017-04-06 03:18 | disposition home or self-care (01) ==
LOC: EC 00:50
DX: R11.2 Nausea with vomiting, unspecified (principal); R19.7 Diarrhea, unspecified; F17.200 Nicotine dependence, unspecified, uncomplicated; Z86.19 Personal history of other infectious and parasitic diseases; Z86.14 Personal history of Methicillin resistant Staphylococcus aureus infection; Z88.5 Allergy status to narcotic agent; Z90.49 Acquired absence of other specified parts of digestive tract
CPT/HCPCS: 99284; 96374; 96361; 36415; 80053; 85025; 81003; 81025; 74020; J2405

== ENCOUNTER 2017-08-30 08:45 | Observation (INO) | payer OTHER ==
[2017-08-30] MEDS ORDERED: KETOROLAC 30 MG/ML 1 ML VIAL IVP STA (09:05)
[2017-08-30] MEDS ORDERED: METHADONE 5 MG TAB PO STA (09:05)
[2017-08-30] MEDS ORDERED: LORazepam 2 MG/ML INJ IV STA ×3 (09:06→15:08)
--- NOTE | 2017-08-30 10:27 | ED ---
Altered Mental Status HPI - General Chief Complaint: Altered Mental Status Stated Complaint: POSS WITHDRAWALS Time Seen by Provider: 08/30/17 08:50 Source: patient, EMS, RN notes reviewed, old records reviewed Mode of arrival: EMS Limitations: no limitations - History of Present Illness Initial Comments: 32-year-old female presents today chief complaint of near seizure-like activity , lower back pain. She states that she also may be going through withdrawals. Tube right ear via EMS. They report they found her on her yard with no pants on. She is on her menstrual cycle. Patient arrived complaining of severe pain. She stated that she needed help for pain. Yelling for narcotics. Patient will not have any origin of her back pain. She denies any falls however. - Related Data Home Medications Medication Instructions Recorded Confirmed No Known Home Medications [No 08/30/17 08/30/17 Known Home Medications] Allergies Allergy/AdvReac Type Severity Reaction Status Date / Time morphine Allergy Unknown Rash/Hives Verified 08/30/17 09:54 metoclopramide [From Reglan] AdvReac Itching Verified 08/30/17 09:54 Review of Systems ROS Statement: Those systems with pertinent positive or pertinent negative responses have been documented in the HPI. ROS Other: All systems not noted in ROS Statement are negative. Past Medical History Past Medical History: No Reported History Additional Past Medical History / Comment(s): Other HX: Hep C, sciatica, MRSA left arm 2014, heroin abuse, restless leg syndrome History of Any Multi-Drug Resistant Organisms: MRSA Date of last positivie culture/infection: 05/06/2014 MDRO Source:: Left Elbow Past Surgical History: Cholecystectomy Additional Past Surgical History / Comment(s): needle removed from right arm 2012 Past Anesthesia/Blood Transfusion Reactions: No Reported Reaction Additional Past Anesthesia/Blood Transfusion Reaction / Comment(s): Pt states she has never recieved blood. Past Psychological History: Anxiety, Depression Smoking Status: Current every day smoker Past Alcohol Use History: Rare Past Drug Use History: None Reported, Cocaine, Heroin, Marijuana - Past Family History Father Additional Family Medical History / Comment(s): Father is an alcoholic. Mother Additional Family Medical History / Comment(s): Mother is an alcoholic General Exam - General Exam Comments Initial Comments: 32-year-old female. Altered, complaining of severe pain. Yelling and screaming right around bed. Limitations: no limitations General appearance: alert, appears intoxicated Head exam: Present: atraumatic, normocephalic, normal inspection Eye exam: Present: normal appearance, PERRL, EOMI. Absent: scleral icterus, conjunctival injection, periorbital swelling ENT exam: Present: normal exam, normal oropharynx, mucous membranes moist Neck exam: Present: normal inspection. Absent: tenderness, meningismus, lymphadenopathy Respiratory exam: Present: normal lung sounds bilaterally. Absent: respiratory distress, wheezes, rales, rhonchi, stridor Cardiovascular Exam: Present: regular rate, normal rhythm, normal heart sounds. Absent: systolic murmur, diastolic murmur, rubs, gallop, clicks GI/Abdominal exam: Present: soft, normal bowel sounds. Absent: distended, tenderness, guarding, rebound, rigid Extremities exam: Present: normal inspection, full ROM, normal capillary refill. Absent: tenderness, pedal edema, joint swelling, calf tenderness Back exam: Present: normal inspection Neurological exam: Present: alert, altered. Absent: oriented X3, CN II-XII intact Psychiatric exam: Present: normal affect, normal mood Skin exam: Present: warm, dry, intact, normal color. Absent: rash Course Vital Signs 08/30/17 08/30/17 08:51 12:08 Temperature 97.8 F Pulse Rate 69 118 H Respiratory 18 16 Rate Blood Pressure 124/67 119/73 O2 Sat by Pulse 99 98 Oximetry - Reevaluation(s) Reevaluation #1: 08/30/17 10:26 Patient was given Ativan, Toradol for her back pain she had an IV established. She afterwards started to calm down. Patient was reevaluated this time that she somewhat lethargic. Fluids and labs will be in acute. Urine drug screen obtained. Reevaluation #2: 08/30/17 12:05 Patient is reevaluated super agitated. Given a milligram of Ativan prior to CT. Vomiting multiple times. Medical Decision Making - Medical Decision Making 32-year-old female presents emergency department found the EMS noted in her front yard. Patient arrived feeling in severe pain. Patient is very altered cannot hold normal conversation. Patient initially was given Toradol and Ativan to help her calm down. She continued to act alternate fight with staff. Patient had a CT brain which was normal. Labs are reviewed. No significant abnormalities. Was given a liter of fluids. Patient had be given Ativan twice for her agitation. - Lab Data Result diagrams: 08/30/17 10:40 08/30/17 10:40 Lab Results 08/30/17 08/30/17 08/30/17 Range/Units 10:40 10:40 10:40 WBC (3.8-10.6) k/uL RBC (3.80-5.40) m/uL Hgb (11.4-16.0) gm/dL Hct (34.0-46.0) % MCV (80.0-100.0) fL MCH (25.0-35.0) pg MCHC (31.0-37.0) g/dL RDW (11.5-15.5) % Plt Count (150-450) k/uL Neutrophils % (Manual) % Band Neutrophils % % Lymphocytes % (Manual) % Monocytes % (Manual) % Metamyelocytes % % Myelocytes % % Neutrophils # (Manual) (1.3-7.7) k/uL Lymphocytes # (Manual) (1.0-4.8) k/uL Monocytes # (Manual) (0-1.0) k/uL Metamyelocytes # (Man) (0) k/uL Myelocytes # (Manual) (0) k/uL Nucleated RBCs (0-0) /100 WBC Poikilocytosis (manual Anisocytosis (manual) PT (9.0-12.0) sec INR (<1.2) APTT (22.0-30.0) sec Sodium (137-145) mmol/L Potassium (3.5-5.1) mmol/L Chloride (98-107) mmol/L Carbon Dioxide (22-30) mmol/L Anion Gap mmol/L BUN (7-17) mg/dL Creatinine (0.52-1.04) mg/dL Est GFR (CKD-EPI)AfAm (>60 ml/min/1.73 sqM) Est GFR (CKD-EPI)NonAf (>60 ml/min/1.73 sqM) Glucose (74-99) mg/dL Calcium (8.4-10.2) mg/dL Total Bilirubin (0.2-1.3) mg/dL AST (14-36) U/L ALT (9-52) U/L Alkaline Phosphatase (38-126) U/L Ammonia <9 (<30) umol/L Total Creatine Kinase 194 H (30-135) U/L CK-MB (CK-2) 3.6 H* (0.0-2.4) ng/mL CK-MB (CK-2) Rel Index 1.9 Troponin I <0.012 (0.000-0.034) ng/mL Total Protein (6.3-8.2) g/dL Albumin (3.5-5.0) g/dL Urine Color Yellow Urine Appearance Turbid H (Clear) Urine pH 6.0 (5.0-8.0) Ur Specific [place] 1.026 (1.001-1.035) Urine Protein 1+ H (Negative) Urine Glucose (UA) Negative (Negative) Urine Ketones 2+ H (Negative) Urine Blood Moderate H (Negative) Urine Nitrite Negative (Negative) Urine Bilirubin Negative (Negative) Urine Urobilinogen <2.0 (<2.0) mg/dL Ur Leukocyte Esterase Trace H (Negative) Urine RBC >182 H (0-5) /hpf Urine WBC 33 H (0-5) /hpf Amorphous Sediment Rare H (None) /hpf Urine Bacteria Occasional H (None) /hpf Urine Mucus Few H (None) /hpf Urine HCG, Qual (Not Detectd) Urine Opiates Screen Detected H (NotDetected) Ur Oxycodone Screen Not Detected (NotDetected) Urine Methadone Screen Not Detected (NotDetected) Ur Propoxyphene Screen Not Detected (NotDetected) Ur Barbiturates Screen Not Detected (NotDetected) U Tricyclic Antidepress Not Detected (NotDetected) Ur Phencyclidine Scrn Not Detected (NotDetected) Ur Amphetamines Screen Not Detected (NotDetected) U Methamphetamines Scrn Not Detected (NotDetected) U Benzodiazepines Scrn Detected H (NotDetected) Urine Cocaine Screen Detected H (NotDetected) U Marijuana (THC) Screen Detected H (NotDetected) 08/30/17 08/30/17 08/30/17 Range/Units 10:40 10:40 10:40 WBC 4.7 (3.8-10.6) k/uL RBC 4.96 (3.80-5.40) m/uL Hgb 14.7 (11.4-16.0) gm/dL Hct 42.0 (34.0-46.0) % MCV 84.6 (80.0-100.0) fL MCH 29.7 (25.0-35.0) pg MCHC 35.1 (31.0-37.0) g/dL RDW 14.0 (11.5-15.5) % Plt Count 125 L (150-450) k/uL Neutrophils % (Manual) 77 % Band Neutrophils % 3 % Lymphocytes % (Manual) 13 % Monocytes % (Manual) 7 % Metamyelocytes % 1 % Myelocytes % 1 % Neutrophils # (Manual) 3.70 (1.3-7.7) k/uL Lymphocytes # (Manual) 0.61 L (1.0-4.8) k/uL Monocytes # (Manual) 0.33 (0-1.0) k/uL Metamyelocytes # (Man) 0.05 H (0) k/uL Myelocytes # (Manual) 0.05 H (0) k/uL Nucleated RBCs 0 (0-0) /100 WBC Poikilocytosis (manual Present Anisocytosis (manual) Present PT 10.1 (9.0-12.0) sec INR 1.0 (<1.2) APTT 25.4 (22.0-30.0) sec Sodium 145 (137-145) mmol/L Potassium 4.4 (3.5-5.1) mmol/L Chloride 108 H (98-107) mmol/L Carbon Dioxide 20 L (22-30) mmol/L Anion Gap 17 mmol/L BUN 11 (7-17) mg/dL Creatinine 0.50 L (0.52-1.04) mg/dL Est GFR (CKD-EPI)AfAm >90 (>60 ml/min/1.73 sqM) Est GFR (CKD-EPI)NonAf >90 (>60 ml/min/1.73 sqM) Glucose 114 H (74-99) mg/dL Calcium 9.3 (8.4-10.2) mg/dL Total Bilirubin 0.7 (0.2-1.3) mg/dL AST 57 H (14-36) U/L ALT 63 H (9-52) U/L Alkaline Phosphatase 97 (38-126) U/L Ammonia (<30) umol/L Total Creatine Kinase (30-135) U/L CK-MB (CK-2) (0.0-2.4) ng/mL CK-MB (CK-2) Rel Index Troponin I (0.000-0.034) ng/mL Total Protein 8.7 H (6.3-8.2) g/dL Albumin 4.6 (3.5-5.0) g/dL Urine Color Urine Appearance (Clear) Urine pH (5.0-8.0) Ur Specific [place] (1.001-1.035) Urine Protein (Negative) Urine Glucose (UA) (Negative) Urine Ketones (Negative) Urine Blood (Negative) Urine Nitrite (Negative) Urine Bilirubin (Negative) Urine Urobilinogen (<2.0) mg/dL Ur Leukocyte Esterase (Negative) Urine RBC (0-5) /hpf Urine WBC (0-5) /hpf Amorphous Sediment (None) /hpf Urine Bacteria (None) /hpf Urine Mucus (None) /hpf Urine HCG, Qual (Not Detectd) Urine Opiates Screen (NotDetected) Ur Oxycodone Screen (NotDetected) Urine Methadone Screen (NotDetected) Ur Propoxyphene Screen (NotDetected) Ur Barbiturates Screen (NotDetected) U Tricyclic Antidepress (NotDetected) Ur Phencyclidine Scrn (NotDetected) Ur Amphetamines Screen (NotDetected) U Methamphetamines Scrn (NotDetected) U Benzodiazepines Scrn (NotDetected) Urine Cocaine Screen (NotDetected) U Marijuana (THC) Screen (NotDetected) 08/30/17 Range/Units 10:40 WBC (3.8-10.6) k/uL RBC (3.80-5.40) m/uL Hgb (11.4-16.0) gm/dL Hct (34.0-46.0) % MCV (80.0-100.0) fL MCH (25.0-35.0) pg MCHC (31.0-37.0) g/dL RDW (11.5-15.5) % Plt Count (150-450) k/uL Neutrophils % (Manual) % Band Neutrophils % % Lymphocytes % (Manual) % Monocytes % (Manual) % Metamyelocytes % % Myelocytes % % Neutrophils # (Manual) (1.3-7.7) k/uL Lymphocytes # (Manual) (1.0-4.8) k/uL Monocytes # (Manual) (0-1.0) k/uL Metamyelocytes # (Man) (0) k/uL Myelocytes # (Manual) (0) k/uL Nucleated RBCs (0-0) /100 WBC Poikilocytosis (manual Anisocytosis (manual) PT (9.0-12.0) sec INR (<1.2) APTT (22.0-30.0) sec Sodium (137-145) mmol/L Potassium (3.5-5.1) mmol/L Chloride (98-107) mmol/L Carbon Dioxide (22-30) mmol/L Anion Gap mmol/L BUN (7-17) mg/dL Creatinine (0.52-1.04) mg/dL Est GFR (CKD-EPI)AfAm (>60 ml/min/1.73 sqM) Est GFR (CKD-EPI)NonAf (>60 ml/min/1.73 sqM) Glucose (74-99) mg/dL Calcium (8.4-10.2) mg/dL Total Bilirubin (0.2-1.3) mg/dL AST (14-36) U/L ALT (9-52) U/L Alkaline Phosphatase (38-126) U/L Ammonia (<30) umol/L Total Creatine Kinase (30-135) U/L CK-MB (CK-2) (0.0-2.4) ng/mL CK-MB (CK-2) Rel Index Troponin I (0.000-0.034) ng/mL Total Protein (6.3-8.2) g/dL Albumin (3.5-5.0) g/dL Urine Color Urine Appearance (Clear) Urine pH (5.0-8.0) Ur Specific [place] (1.001-1.035) Urine Protein (Negative) Urine Glucose (UA) (Negative) Urine Ketones (Negative) Urine Blood (Negative) Urine Nitrite (Negative) Urine Bilirubin (Negative) Urine Urobilinogen (<2.0) mg/dL Ur Leukocyte Esterase (Negative) Urine RBC (0-5) /hpf Urine WBC (0-5) /hpf Amorphous Sediment (None) /hpf Urine Bacteria (None) /hpf Urine Mucus (None) /hpf Urine HCG, Qual Not Detected (Not Detectd) Urine Opiates Screen (NotDetected) Ur Oxycodone Screen (NotDetected) Urine Methadone Screen (NotDetected) Ur Propoxyphene Screen (NotDetected) Ur Barbiturates Screen (NotDetected) U Tricyclic Antidepress (NotDetected) Ur Phencyclidine Scrn (NotDetected) Ur Amphetamines Screen (NotDetected) U Methamphetamines Scrn (NotDetected) U Benzodiazepines Scrn (NotDetected) Urine Cocaine Screen (NotDetected) U Marijuana (THC) Screen (NotDetected) 08/30/17 11:36 EKG performed at 1050 she sinus bradycardia prolonged QT. Ventricular rate of 59 bpm. LA interval 148. QRS duration 86. QT QTc is 480/483 ms. No evidence of ST elevation or T-wave inversion. - Radiology Data Radiology results: report reviewed CT brain is normal. Disposition Clinical Impression: Altered mental state, Drug abuse, Vomiting Disposition: ADMITTED IP TO THIS [facility] Condition: Stable Is patient prescribed a controlled substance at d/c from ED?: No If prescribed controlled substance>3 days was MAPS reviewed?: No When asked, does pt state using other controlled substances?: No Referrals: None,Stated [Primary Care Provider] - 1-2 days Time of Disposition: 13:46
[2017-08-30 11:08] LABS: Amorphous Sediment,Urine Rare /hpf; Appearance,Urine Turbid (Clear); Bacteria,Urine Occasional /hpf; Bilirubin,Urine Negative (Negative); Blood,Urine Moderate (Negative); Color,Urine Yellow; Glucose,Urine (UA) Negative (Negative); Ketones,Urine 2+ (Negative); Leukocyte Esterase,Urine Trace (Negative); Mucus,Urine Few /hpf; Nitrite,Urine Negative (Negative); Protein,Urine 1+ (Negative); RBC,Urine >182 /hpf (0-5); Specific Gravity,Urine 1.026 (1.001-1.035); Urobilinogen,Urine <2.0 mg/dL (<2.0); WBC,Urine 33 /hpf (0-5)
[2017-08-30 11:11] LABS: Amphetamine Screen,Urine Not Detected (NotDetected); Barbiturate Screen,Urine Not Detected (NotDetected); Benzodiazepines Screen,Urine Detected (NotDetected); Cocaine Screen,Urine Detected (NotDetected); Methadone Screen, Urine Not Detected (NotDetected); Opiate Screen,Urine Detected (NotDetected); Oxycodone Screen, Urine Not Detected (NotDetected); Phencyclidine Screen,Urine Not Detected (NotDetected); Tricyclic Antidepressant,Urine Not Detected (NotDetected); Urn Cannabinoid Scrn Detected (NotDetected)
[2017-08-30 11:13] LABS: ALT 63 U/L (9-52); AST 57 U/L (14-36); Albumin 4.6 g/dL (3.5-5.0); Alkaline Phosphatase 97 U/L (38-126); Anion Gap 17 mmol/L; Blood Urea Nitrogen 11 mg/dL (7-17); Calcium 9.3 mg/dL (8.4-10.2); Carbon Dioxide 20 mmol/L (22-30); Chloride 108 mmol/L (98-107); Glucose 114 mg/dL (74-99); Potassium 4.4 mmol/L (3.5-5.1); Sodium 145 mmol/L (137-145); Total Bilirubin 0.7 mg/dL (0.2-1.3); Total Protein 8.7 g/dL (6.3-8.2)
[2017-08-30 11:14] LABS: Partial Thromboplastin Time 25.4 sec (22.0-30.0); Prothrombin Time 10.1 sec (9.0-12.0)
[2017-08-30 11:20] LABS: HGB 14.7 gm/dL (11.4-16.0); MCH 29.7 pg (25.0-35.0); MCHC 35.1 g/dL (31.0-37.0); MCV 84.6 fL (80.0-100.0); Platelet Count 125 k/uL (150-450); RBC 4.96 m/uL (3.80-5.40); WBC 4.7 k/uL (3.8-10.6)
[2017-08-30 11:24] LABS: Creatine Kinase 194 U/L (30-135)
[2017-08-30 11:36] LABS: Troponin I <0.012 ng/mL (0.000-0.034)
[2017-08-30 11:38] LABS: Creatine Kinase MB 3.6 ng/mL (0.0-2.4)
[2017-08-30 11:43] LABS: Anisocytosis (M) Present; Band Neutrophils % 3 %; Lymphocytes # (M) 0.61 k/uL (1.0-4.8); Metamyelocytes # (M) 0.05 k/uL (0); Metamyelocytes % 1 %; Monocytes # (M) 0.33 k/uL (0-1.0); Myelocytes # (M) 0.05 k/uL (0); Myelocytes % 1 %; Neutrophils % (M) 77 %; Nucleated Red Blood Cells 0 /100 WBC (0-0); Poikilocytosis (M) Present; Total Cells Counted 200
[2017-08-30] MEDS ORDERED: SODIUM CHLORIDE 0.9% 1,000 ML IV ONE ×2 (11:44→15:11)
--- NOTE | 2017-08-30 12:35 | CT ---
EXAMINATION TYPE: CT brain wo con DATE OF EXAM: 08/30/2017 COMPARISON: NONE INDICATION: Possible withdrawals. Altered mental status. DLP: 769.3 mGycm, Automated exposure control for dose reduction was used. CONTRAST: None CT of the brain is performed utilizing 3 mm thick sections through the posterior fossa and 3 mm thick sections through the remaining calvarium. Study is performed within 24 hours of arrival to the hosp [facility]. No abnormal hyperdensity is present to suggest an acute intracranial hemorrhage. No mass lesion is evident. No acute infarcts are evident. Ventricles and sulci are appropriate for the patient age. Paranasal sinuses and mastoid air cells within the [id number] are clear. IMPRESSIONS: 1. Normal CT Brain
[2017-08-30] MEDS: SODIUM CHLORIDE 0.9% 1,000 ML IV SCH (13:49)
[2017-08-30] MEDS ORDERED: LORazepam 2 MG/ML INJ IV PRN (13:50)
[2017-08-30] MEDS ORDERED: NALOXONE 0.4 MG/ML 1 ML VIAL IV PRN (13:50)
[2017-08-30] MEDS ORDERED: IBUPROFEN 400 MG TAB PO PRN (13:50)
[2017-08-30] MEDS: ONDANSETRON 4 MG/2 ML VIAL IVP PRN (14:34)
--- NOTE | 2017-08-30 14:58 | P.HPIM ---
History of Present Illness H&P Date: 08/30/17 Chief Complaint: Going through withdrawals, severe pain The patient is a 32-year-old female presents today chief complaint of near seizure-like activity, lower back pain. The patient is currently somnolent and barely arousable and only moans when attempting to elicit history hence the following history is obtained from her interaction with the ER provider. Apparently She states that she also may be going through withdrawals. Tube right ear via EMS. They report they found her on her yard with no pants on. She is on her menstrual cycle. Patient arrived complaining of severe pain. She stated that she needed help for pain. Yelling for narcotics. Patient will not have any origin of her back pain. She denies any falls however. In the ER the patient received a total of 2 mg of Ativan, a liter of normal saline and a shot of Toradol. CT of the head was negative for any acute intracranial pathology, her UDS was positive for opiates, benzodiazepines, cocaine and THC. She's recommended for admission for altered mental status Review of Systems Alt 12 point review of systems negative except per HPI ROS unobtainable: due to mental status (Per HPI) Past Medical History Past Medical History: No Reported History Additional Past Medical History / Comment(s): Other HX: Hep C, sciatica, MRSA left arm 2014, heroin abuse, restless leg syndrome History of Any Multi-Drug Resistant Organisms: MRSA Date of last positivie culture/infection: 05/06/2014 MDRO Source:: Left Elbow Past Surgical History: Cholecystectomy Additional Past Surgical History / Comment(s): needle removed from right arm 2012 Past Anesthesia/Blood Transfusion Reactions: No Reported Reaction Additional Past Anesthesia/Blood Transfusion Reaction / Comment(s): Pt states she has never recieved blood. Past Psychological History: Anxiety, Depression Smoking Status: Current every day smoker Past Alcohol Use History: Rare Past Drug Use History: None Reported, Cocaine, Heroin, Marijuana - Past Family History Father Additional Family Medical History / Comment(s): Father is an alcoholic. Mother Additional Family Medical History / Comment(s): Mother is an alcoholic Medications and Allergies Home Medications Medication Instructions Recorded Confirmed Type No Known Home Medications [No 08/30/17 08/30/17 History Known Home Medications] Allergies Allergy/AdvReac Type Severity Reaction Status Date / Time morphine Allergy Unknown Rash/Hives Verified 08/30/17 09:54 metoclopramide [From Reglan] AdvReac Itching Verified 08/30/17 09:54 Physical Exam Vitals: Vital Signs Temp Pulse Resp BP Pulse Ox 08/30/17 14:44 64 16 135/78 98 08/30/17 13:44 63 16 122/61 99 08/30/17 12:08 118 H 16 119/73 98 08/30/17 08:51 97.8 F 69 18 124/67 99 Intake and Output 08/29/17 08/30/17 08/30/17 22:59 06:59 14:59 Other: Weight 49.895 kg Constitutional: No acute distress, somnolent, curled up in a position on gurney, difficult to arouse moaning Eyes: Anicteric sclerae, moist conjunctiva, no lid-lag, PERRLA ENMT: NC/AT,Oropharynx clear, no erythema, exudates Neck:Supple, FROM, no masses, or JVD, No carotid bruits; No thyromegaly Lungs: Clear to auscultation, Clear to percussion, Normal respiratory effort, no accessory muscle use Cardiovascular: Heart regular in rate and rhythm, No murmurs, gallops, or rubs no peripheral edema Abdominal: Soft Nontender, nom distended, no guarding, no rebound or rigidity, Normoactive bowel sounds No hepatomegaly, No splenomegaly, No palpable mass No abdominal wall hernia noted Skin: Normal temperature, tone, texture, turgor, No induration No subcutaneous nodules, No rash, lesions, No ulcers Extremities:No digital cyanosis No clubbing, Pedal pulses intact and symmetrical Radial pulses intact and symmetrical Normal gait and station, No calf tenderness Psychiatric: Alternative confused somnolent and barely arousable, t Neuro: Muscles Strength 5/5 in all 4 extremities, Sensation to light touch grossly present throughout, altered unable to complete neurological Exam, moaning only withdrawing from pain Results CBC & Chem 7: 08/30/17 10:40 08/30/17 10:40 Labs: Abnormal Lab Results - Last 24 Hours (Table) 08/30/17 08/30/17 08/30/17 Range/Units 10:40 10:40 10:40 Plt Count 125 L (150-450) k/uL Lymphocytes # (Manual) 0.61 L (1.0-4.8) k/uL Metamyelocytes # (Man) 0.05 H (0) k/uL Myelocytes # (Manual) 0.05 H (0) k/uL Chloride (98-107) mmol/L Carbon Dioxide (22-30) mmol/L Creatinine (0.52-1.04) mg/dL Glucose (74-99) mg/dL AST (14-36) U/L ALT (9-52) U/L Total Creatine Kinase 194 H (30-135) U/L CK-MB (CK-2) 3.6 H* (0.0-2.4) ng/mL Total Protein (6.3-8.2) g/dL Urine Appearance Turbid H (Clear) Urine Protein 1+ H (Negative) Urine Ketones 2+ H (Negative) Urine Blood Moderate H (Negative) Ur Leukocyte Esterase Trace H (Negative) Urine RBC >182 H (0-5) /hpf Urine WBC 33 H (0-5) /hpf Amorphous Sediment Rare H (None) /hpf Urine Bacteria Occasional H (None) /hpf Urine Mucus Few H (None) /hpf Urine Opiates Screen Detected H (NotDetected) U Benzodiazepines Scrn Detected H (NotDetected) Urine Cocaine Screen Detected H (NotDetected) U Marijuana (THC) Screen Detected H (NotDetected) 08/30/17 Range/Units 10:40 Plt Count (150-450) k/uL Lymphocytes # (Manual) (1.0-4.8) k/uL Metamyelocytes # (Man) (0) k/uL Myelocytes # (Manual) (0) k/uL Chloride 108 H (98-107) mmol/L Carbon Dioxide 20 L (22-30) mmol/L Creatinine 0.50 L (0.52-1.04) mg/dL Glucose 114 H (74-99) mg/dL AST 57 H (14-36) U/L ALT 63 H (9-52) U/L Total Creatine Kinase (30-135) U/L CK-MB (CK-2) (0.0-2.4) ng/mL Total Protein 8.7 H (6.3-8.2) g/dL Urine Appearance (Clear) Urine Protein (Negative) Urine Ketones (Negative) Urine Blood (Negative) Ur Leukocyte Esterase (Negative) Urine RBC (0-5) /hpf Urine WBC (0-5) /hpf Amorphous Sediment (None) /hpf Urine Bacteria (None) /hpf Urine Mucus (None) /hpf Urine Opiates Screen (NotDetected) U Benzodiazepines Scrn (NotDetected) Urine Cocaine Screen (NotDetected) U Marijuana (THC) Screen (NotDetected) Assessment and Plan Assessment: Chronic medical conditions Opiate use disorder Chronic hep C Chronic alcoholism (1) Metabolic encephalopathy Current Visit: Yes Status: Acute Code(s): G93.41 - METABOLIC ENCEPHALOPATHY SNOMED Code(s): 06361690 (2) Polysubstance dependence including opioid drug with daily use Current Visit: Yes Status: Acute Code(s): F19.20 - OTHER PSYCHOACTIVE SUBSTANCE DEPENDENCE, UNCOMPLICATED SNOMED Code(s): 511773689 (3) Back pain Current Visit: Yes Status: Acute Code(s): M54.9 - DORSALGIA, UNSPECIFIED SNOMED Code(s): 727890955 Plan: The patient is admitted anticipated greater than 2 midnight stay with metabolic encephalopathy likely multifactorial etiology with polysubstance drug use with UDS positive for cocaine, THC opiates and benzodiazepines coupled with the use of Ativan, at present the patient is hemodynamically stable. CT of the head was negative for any acute intracranial abnormality, will start the patient on IV fluids, consult psychiatry for further recommendations. Check urine culture , Continue with supportive care, monitor neuro checks, place on seizure precautions. Continue to monitor clinical course.
[2017-08-30] MEDS: KETOROLAC 30 MG/ML 1 ML VIAL IVP PRN (16:51)
[2017-08-30] MEDS: LORazepam 2 MG/ML INJ IV PRN ×2 (17:02→20:56)
--- NOTE | 2017-08-30 17:55 | P.MHFACE ---
Face to Face Eval of Restraint - Evaluation Patient's Immediate Situation: Endangers self safety, Violent behavior Patient's Immediate Situation - Comment: patient ripping off her IV lines, and resistant to care and combative with staff , endangering her well being Patient's Reaction to the Intervention: Uncooperative, Angry, Hostile, Aggressive, Combative, Restless, Resistive to care Patient's Medical & Behavioral Condition: Sleeping Need to Continue or Terminate Restraint or Seclusion: Continue
[2017-08-31] MEDS: SODIUM CHLORIDE 0.9% 1,000 ML IV SCH ×4 (00:30→21:10)
[2017-08-31] MEDS: LORazepam 2 MG/ML INJ IV PRN ×3 (00:30→09:01)
[2017-08-31] MEDS: PANTOPRAZOLE 40 MG/10 ML VIAL IV SCH (07:41)
[2017-08-31] MEDS: cefTRIAXone IN SWFI 1,000 MG/10 ML SYRINGE IVP SCH (08:47)
[2017-08-31 08:48] VITALS: BMI 20.7
--- NOTE | 2017-08-31 11:29 | P.PN ---
Subjective Progress Note Date: 08/31/17 Patient very somnolent not to arousable at this point, nursing staff reporting random limb movements. He was apparently given more Ativan approximately 10 minutes prior to my evaluation Objective - Vital Signs Vital signs: Vital Signs Temp 98.4 F 08/31/17 06:58 Pulse 88 08/31/17 06:58 Resp 16 08/31/17 06:58 BP 124/80 08/31/17 06:58 Pulse Ox 92 L 08/31/17 06:58 Intake & Output 08/30/17 08/31/17 08/31/17 18:59 06:59 18:59 Intake Total 800 0 Output Total 1 Balance 799 0 Weight 49.895 kg 49.895 kg Intake: Oral 800 0 Output: Emesis 1 Other: Voiding Method Incontinent Incontinent Incontinent # Voids 0 - Exam Constitutional: No acute distress, somnolent, curled up in a position on gurney, difficult to arouse moaning Eyes: Anicteric sclerae, moist conjunctiva, no lid-lag, PERRLA ENMT: NC/AT,Oropharynx clear, no erythema, exudates Neck:Supple, FROM, no masses, or JVD, No carotid bruits; No thyromegaly Lungs: Clear to auscultation, Clear to percussion, Normal respiratory effort, no accessory muscle use Cardiovascular: Heart regular in rate and rhythm, No murmurs, gallops, or rubs no peripheral edema Abdominal: Soft Nontender, nom distended, no guarding, no rebound or rigidity, Normoactive bowel sounds No hepatomegaly, No splenomegaly, No palpable mass No abdominal wall hernia noted Skin: Normal temperature, tone, texture, turgor, No induration No subcutaneous nodules, No rash, lesions, No ulcers Extremities:No digital cyanosis No clubbing, Pedal pulses intact and symmetrical Radial pulses intact and symmetrical Normal gait and station, No calf tenderness Psychiatric: Alternative confused somnolent and barely arousable, t Neuro: Muscles Strength 5/5 in all 4 extremities, Sensation to light touch grossly present throughout, altered unable to complete neurological Exam, moaning only withdrawing from pain - Labs CBC & Chem 7: 08/30/17 10:40 08/30/17 10:40 Labs: Abnormal Lab Results - Last 24 Hours (Table) 08/30/17 08/30/17 08/30/17 Range/Units 10:40 10:40 10:40 Plt Count 125 L (150-450) k/uL Lymphocytes # (Manual) 0.61 L (1.0-4.8) k/uL Metamyelocytes # (Man) 0.05 H (0) k/uL Myelocytes # (Manual) 0.05 H (0) k/uL Total Creatine Kinase 194 H (30-135) U/L CK-MB (CK-2) 3.6 H* (0.0-2.4) ng/mL Urine Ketones 2+ H (Negative) Microbiology - Last 24 Hours (Table) 08/30/17 10:40 Urine Culture - Preliminary Urine,Clean Catch Assessment and Plan (1) Metabolic encephalopathy Narrative/Plan: * CT of the head negative for any acute intracranial abnormality * Likely metabolic superimposed on polysubstance drug use also receiving Ativan when necessary here * Psychiatry consulted we'll plan to consult neurology * DC Ativan Current Visit: Yes Status: Acute Code(s): G93.41 - METABOLIC ENCEPHALOPATHY SNOMED Code(s): 30841660 (2) Polysubstance dependence including opioid drug with daily use Current Visit: Yes Status: Acute Code(s): F19.20 - OTHER PSYCHOACTIVE SUBSTANCE DEPENDENCE, UNCOMPLICATED SNOMED Code(s): 533593087 (3) Back pain Current Visit: Yes Status: Acute Code(s): M54.9 - DORSALGIA, UNSPECIFIED SNOMED Code(s): 936081049 Plan: Continue to observe the patient is hemodynamically stable, but is still pretty somnolent and has been receiving Ativan will DC Ativan and hopefully her cognition clears and she becomes more alert. We'll consult neurology
[2017-08-31 12:36] LABS: ALT 59 U/L (9-52); AST 34 U/L (14-36); Albumin 3.6 g/dL (3.5-5.0); Alkaline Phosphatase 66 U/L (38-126); Anion Gap 15 mmol/L; Blood Urea Nitrogen 14 mg/dL (7-17); Calcium 8.3 mg/dL (8.4-10.2); Carbon Dioxide 17 mmol/L (22-30); Chloride 111 mmol/L (98-107); Glucose 91 mg/dL (74-99); Potassium 3.5 mmol/L (3.5-5.1); Sodium 143 mmol/L (137-145); Total Bilirubin 0.5 mg/dL (0.2-1.3); Total Protein 6.8 g/dL (6.3-8.2)
--- NOTE | 2017-08-31 13:33 | P.PN ---
Progress Note - Text Progress Note Date: 08/31/17 Attempted to do a psychiatric evaluation on this patient, patient is in soft restraints and sleeping when aroused she is not able to stay awake for more than a few seconds before she dropped back off to sleep. Please contact psychiatry when patient is more capable of participating in an interview.
--- NOTE | 2017-08-31 15:05 | P.CONS ---
History of Present Illness - Reason for Consult Consult date: 08/31/17 Altered mental status - Chief Complaint Altered mental status - History of Present Illness This is a 32-year-old female being evaluated by the neurology service for altered mental status. She presented to the [facility] emergency room saying that she might be going through withdrawal symptoms. He was found in the front yard with no pain. While in the ER She Was Insisting on Pain Medications Because of Severe Pain. There Was No Evidence of Any Trauma. She Has a Significant History of past Drug Use, Specifically Cocaine and Heroin and Marijuana. Ativan Was Given to Calm Her down. CT of the Brain Was Done and Showed No Acute Intracranial Abnormalities. She was afebrile in the ER and vital signs are relatively stable. Her CK level was somewhat elevated. Urine drug screen was positive for opiates, benzodiazepines, cocaine, and marijuana. At this time my exam she is sleeping in bed in 4-point restraints. She is fairly easily awoken but quite drowsy. Review of Systems Constitutional: Reports as per HPI Past Medical History Past Medical History: No Reported History Additional Past Medical History / Comment(s): Other HX: Hep C, sciatica, MRSA left arm 2014, heroin abuse, restless leg syndrome History of Any Multi-Drug Resistant Organisms: MRSA Year Discovered:: 05/06/2014 MDRO Source:: Left Elbow Past Surgical History: Cholecystectomy Additional Past Surgical History / Comment(s): needle removed from right arm 2012 Past Anesthesia/Blood Transfusion Reactions: No Reported Reaction Additional Past Anesthesia/Blood Transfusion Reaction / Comm: Pt states she has never recieved blood. Past Psychological History: Anxiety, Depression Smoking Status: Current every day smoker Past Alcohol Use History: Rare Past Drug Use History: None Reported, Cocaine, Heroin, Marijuana - Past Family History Father Additional Family Medical History / Comment(s): Father is an alcoholic. Mother Additional Family Medical History / Comment(s): Mother is an alcoholic Medications and Allergies Home Medications Medication Instructions Recorded Confirmed Type No Known Home Medications [No 08/30/17 08/30/17 History Known Home Medications] Allergies Allergy/AdvReac Type Severity Reaction Status Date / Time morphine Allergy Unknown Rash/Hives Verified 08/30/17 09:54 metoclopramide [From Reglan] AdvReac Itching Verified 08/30/17 09:54 Physical Exam Vitals: Vital Signs Temp Pulse Resp BP BP Pulse Ox 08/31/17 14:18 98.2 F 76 20 124/80 97 08/31/17 06:58 98.4 F 88 16 124/80 92 L 08/30/17 23:00 98.2 F 75 15 131/87 99 08/30/17 16:00 98.8 F 91 18 131/80 95 Intake and Output 08/30/17 08/31/17 08/31/17 22:59 06:59 14:59 Intake Total 800 0 Output Total 1 Balance 799 0 Intake: Oral 800 0 Output: Emesis 1 Other: Voiding Method Incontinent Incontinent # Voids 0 1 # Bowel Movements 0 Weight 49.895 kg - Constitutional Obtunded General appearance: no cooperative, no acute distress - EENT Eyes: no abnormal pupil, EOMI, PERRLA, no ptosis ENT: hearing grossly normal - Neck Neck: normal ROM, no rigidity - Respiratory Respiratory: negative: prolonged expiration, prolonged inspiration - Cardiovascular Rhythm: regular - Gastrointestinal Left upper quadrant tenderness General gastrointestinal: no distended, tenderness - Neurologic The patient is obtunded but fairly easily awoken. She falls right back to sleep however. She is oriented to person place and partially to time. There is no facial asymmetry. There is no lateralizing weakness. Speech and language are normal. There is no sensory deficit. Results CBC & Chem 7: 08/30/17 10:40 08/31/17 11:35 Labs: Abnormal Lab Results - Last 24 Hours (Table) 08/31/17 Range/Units 11:35 Chloride 111 H (98-107) mmol/L Carbon Dioxide 17 L (22-30) mmol/L Creatinine 0.40 L (0.52-1.04) mg/dL Calcium 8.3 L (8.4-10.2) mg/dL ALT 59 H (9-52) U/L Microbiology - Last 24 Hours (Table) 08/30/17 10:40 Urine Culture - Preliminary Urine,Clean Catch Assessment and Plan (1) Altered mental state Current Visit: Yes Status: Acute Code(s): R41.82 - ALTERED MENTAL STATUS, UNSPECIFIED SNOMED Code(s): 769703841 (2) Drug abuse Current Visit: Yes Status: Chronic Code(s): F19.10 - OTHER PSYCHOACTIVE SUBSTANCE ABUSE, UNCOMPLICATED SNOMED Code(s): 57491567 (3) Metabolic encephalopathy Current Visit: Yes Status: Acute Code(s): G93.41 - METABOLIC ENCEPHALOPATHY SNOMED Code(s): 67696325 (4) Polysubstance dependence including opioid drug with daily use Current Visit: Yes Status: Chronic Code(s): F19.20 - OTHER PSYCHOACTIVE SUBSTANCE DEPENDENCE, UNCOMPLICATED SNOMED Code(s): 722334536 (5) Abdominal pain Current Visit: No Status: Chronic Code(s): R10.9 - UNSPECIFIED ABDOMINAL PAIN SNOMED Code(s): 19030956 Plan: The patient is encephalopathic likely due to her illicit drug use. I will order an EEG. Continue IV hydration and sitter. Continue neurological checks. Psychiatric consultation has already been placed. They have tried to evaluate her but she was not alert enough. We will continue to follow and make recommendations as needed. I have performed a history and physical on the above patient. I have reviewed the above note, and agree.
[2017-08-31] MEDS: ONDANSETRON 4 MG/2 ML VIAL IVP PRN (17:24)
[2017-08-31] MEDS: KETOROLAC 30 MG/ML 1 ML VIAL IVP PRN (17:36)
[2017-08-31 23:18] VITALS: PULSE 67; RESP 16
[2017-09-01] MEDS: ACETAMINOPHEN TAB 325 MG TAB PO PRN ×2 (01:23→06:25)
[2017-09-01] MEDS: KETOROLAC 30 MG/ML 1 ML VIAL IVP PRN ×2 (01:24→06:25)
[2017-09-01] MEDS: ONDANSETRON 4 MG/2 ML VIAL IVP PRN (05:36)
[2017-09-01] MEDS: SODIUM CHLORIDE 0.9% 1,000 ML IV SCH (05:36)
[2017-09-01 06:07] VITALS: BP 137/88; TEMP 97.4
[2017-09-01] MEDS: cefTRIAXone IN SWFI 1,000 MG/10 ML SYRINGE IVP SCH (07:40)
[2017-09-01] MEDS: PANTOPRAZOLE 40 MG/10 ML VIAL IV SCH (07:40)
[2017-09-01] MEDS ORDERED: ALPRAZolam 0.25 MG TAB PO STA (12:03)
--- NOTE | 2017-09-01 12:09 | P.PN ---
Subjective Progress Note Date: 09/01/17 Principal diagnosis: Altered mental status Is a 32-year-old female continuing be evaluated by the neurology service for altered mental status. Recall that she was positive for numerous substances. She's been asked setting for pain medication consistently. However, she says she is on no home pain medication. Her CT of the brain was normal. An EEG has been performed. It's time my exam she is much more awake and alert than yesterday. Objective - Vital Signs Vital signs: Vital Signs Temp 97.4 F L 09/01/17 05:30 Pulse 67 09/01/17 05:30 Resp 16 09/01/17 05:30 BP 137/88 09/01/17 05:30 Pulse Ox 95 09/01/17 05:30 Intake & Output 08/31/17 09/01/17 09/01/17 18:59 06:59 18:59 Intake Total 600 Balance 600 Weight 49.895 kg Intake: Oral 600 Other: Voiding Method Incontinent Toilet # Voids 1 1 # Bowel Movements 0 - Constitutional General appearance: Present: no acute distress - EENT Eyes: Present: PERRLA. Absent: abnormal pupil, ptosis ENT: Present: hearing grossly normal - Neck Neck: Present: normal ROM. Absent: rigidity - Respiratory Respiratory: negative: prolonged expiration, prolonged inspiration - Gastrointestinal General gastrointestinal: Absent: distended - Neurologic Neurologic Comment(s): The patient is alert awake and oriented 3. Speech and language are normal. There is no facial asymmetry. There is no lateralizing weakness. No tremors or seizures are seen. Cranial nerves II through XII are intact globally. - Labs CBC & Chem 7: 08/30/17 10:40 08/31/17 11:35 Labs: Abnormal Lab Results - Last 24 Hours (Table) 08/31/17 Range/Units 11:35 Chloride 111 H (98-107) mmol/L Carbon Dioxide 17 L (22-30) mmol/L Creatinine 0.40 L (0.52-1.04) mg/dL Calcium 8.3 L (8.4-10.2) mg/dL ALT 59 H (9-52) U/L Microbiology - Last 24 Hours (Table) 08/30/17 10:40 Urine Culture - Final Urine,Clean Catch Assessment and Plan (1) Altered mental state Current Visit: Yes Status: Acute Code(s): R41.82 - ALTERED MENTAL STATUS, UNSPECIFIED SNOMED Code(s): 300562805 (2) Drug abuse Current Visit: Yes Status: Chronic Code(s): F19.10 - OTHER PSYCHOACTIVE SUBSTANCE ABUSE, UNCOMPLICATED SNOMED Code(s): 55270992 (3) Metabolic encephalopathy Current Visit: Yes Status: Acute Code(s): G93.41 - METABOLIC ENCEPHALOPATHY SNOMED Code(s): 15128291 (4) Polysubstance dependence including opioid drug with daily use Current Visit: Yes Status: Chronic Code(s): F19.20 - OTHER PSYCHOACTIVE SUBSTANCE DEPENDENCE, UNCOMPLICATED SNOMED Code(s): 712712515 (5) Abdominal pain Current Visit: No Status: Chronic Code(s): R10.9 - UNSPECIFIED ABDOMINAL PAIN SNOMED Code(s): 79019971 Plan: The patient is encephalopathic likely due to her illicit drug use. We will review her EEG. Psychiatric consultation has already been placed. They have tried to evaluate her but she was not alert enough. No further neurological workup is needed. Barring any unforeseen abnormalities on her EEG she is cleared from a neurological standpoint. I have performed a history and physical on the above patient. I have reviewed the above note, and agree.
--- NOTE | 2017-09-01 15:47 | P.DS ---
Providers Date of admission: 08/30/17 14:48 Expected date of discharge: 09/03/17 Attending physician: Rian Kimbrough MD Consults: 08/30/17 14:58 Consult Physician Routine Consulting Provider: Tasha Fam Consult Reason/Comments: Psychiatric consult Do you want consulting provider notified?: Yes 08/31/17 11:27 Consult Physician Routine Consulting Provider: Aliya Mayen Consult Reason/Comments: altered mental status Do you want consulting provider notified?: Yes Primary care physician: Stated None - Discharge Diagnosis(es) (1) Altered mental state Status: Acute (2) Back pain Status: Acute (3) Chronic hepatitis C Status: Acute (4) Drug abuse Status: Chronic (5) Polysubstance dependence including opioid drug with daily use Status: Chronic Hospital Course: The patient was admitted to the hospital couple days ago with altered mental status and she was found to be with polysubstance abuse. Patient was stabilized in the hospital and neurology evaluation and psychiatric evaluation was requested. Patient was seen by the psychiatry team yesterday but due to her mental status changes her psychiatric evaluation was not performed. Patient did and upon having EEG this morning report is still pending. Patient medically unstable for discharge but she wants to leave AGAINST MEDICAL ADVICE. Psychiatric evaluation still pending and there is no verbalized or nonverbal clues for suicidal or homicidal ideations. Patient is alert, oriented 3 and wants to go against physician's recommendations. Patient has a episode of anxiety last night also and she was given 1 dose of Ativan that helped her but patient refuses to take any further Ativan or Xanax for her anxiety states that she is having pain all over the body and she wants narcotic pain medications. Patient was educated and emphasized for her best care is to stay in the hospital and get full evaluation, but patient refused to stay. Patient signed AGAINST MEDICAL ADVICE leaving forms and was released from the hospital. Pertinent Studies: EEG was done today and report is pending. Patient Condition at Discharge: Poor Plan - Discharge Summary Discharge Rx Participant: No New Discharge Prescriptions: No Action No Known Home Medications [No Known Home Medications] Discharge Medication List No Known Home Medications [No Known Home Medications] 08/30/17 [History] Follow up Appointment(s)/Referral(s): None,Stated [Primary Care Provider] - 1-2 days Discharge Disposition: Left Against Medical Advice
[2017-09-02] MEDS ORDERED: PANTOPRAZOLE 40 MG TABLET PO SCH (07:30)
--- NOTE | 2017-09-03 19:00 | EEG ---
ELECTROENCEPHALOGRAM REPORT DATE OF SERVICE: 09/01/2017. REASON FOR TESTING: Altered mental status. DESCRIPTION OF THE PROCEDURE: This EEG was performed using a 21 channel digital electroencephalograph, following international 10-20 system. DESCRIPTION OF THE RECORDING: From the beginning of the tracing, and with patient's eyes closed, the background rhythm was mostly consisting of 8 Hz alpha frequency in the posterior occipital leads. No obvious asymmetry is seen. Significant movement artifacts are seen during photic stimulation. No driving response is seen. Occasional dysregulation is seen. Hyperventilation was not performed. More frequent muscle and movement artifacts are seen. The patient remains awake throughout the tracing. No obvious epileptiform discharges were seen. INTERPRETATION: This awake EEG is abnormal due to the presence of occasional dysregulation seen. This is consistent with a reduced seizure threshold. No obvious epileptiform discharges were seen. The absence of epileptiform discharges does not rule out the diagnosis of epilepsy, therefore clinical correlation is recommended. MMIKEL / IJN: [id number] /
== END 2017-09-01 13:24 | disposition home or self-care (01) ==
LOC: EC 08:45 → 4MS4W 14:48 → INTOOBSV 14:48 → 4MS4W 08-31 15:24 → UNDODISIN 09-01 13:24
PROVIDERS: ADMIT Family Medicine; ATTEND Family Medicine
DX: G93.41 Metabolic encephalopathy (principal); F14.10 Cocaine abuse, uncomplicated; F12.10 Cannabis abuse, uncomplicated; F10.20 Alcohol dependence, uncomplicated; F11.20 Opioid dependence, uncomplicated; F19.20 Other psychoactive substance dependence, uncomplicated; B18.2 Chronic viral hepatitis C; F41.9 Anxiety disorder, unspecified; Z78.1 Physical restraint status; M54.40 Lumbago with sciatica, unspecified side; G25.81 Restless legs syndrome; F32.9 Major depressive disorder, single episode, unspecified; F17.200 Nicotine dependence, unspecified, uncomplicated; Z88.5 Allergy status to narcotic agent; Z88.8 Allergy status to other drugs, medicaments and biological substances; Z86.14 Personal history of Methicillin resistant Staphylococcus aureus infection; Z81.1 Family history of alcohol abuse and dependence; Z90.49 Acquired absence of other specified parts of digestive tract
CPT/HCPCS: 36415; 51701; 70450; 80053; 80306; 80320; 81001; 81025; 82140; 82550; 82553; 83520; 84484; 85025; 85610; 85730; 87086; 93005; 95816; 96361; 96374; 96375; 96376; 99285

== ENCOUNTER 2017-09-02 14:04 | Emergency (ER) | payer OTHER ==
[2017-09-02 14:17] VITALS: BP 127/68; TEMP 98.6
[2017-09-02 14:44] VITALS: RESP 20
[2017-09-02] MEDS ORDERED: IPRATROPIUM-ALBUTEROL 3 ML NEB INHALATION STA (14:48)
--- NOTE | 2017-09-02 14:52 | XR ---
EXAMINATION TYPE: XR chest 2V DATE OF EXAM: 09/02/2017 COMPARISON: 12/28/2016 HISTORY: Shortness of breath, cough, and pain TECHNIQUE: Frontal and lateral views of the chest are obtained. FINDINGS: There is a right perihilar opacity and more linear right upper lobe opacity with trace int erfissural fluid in the minor fissure. Remainder the lungs are clear. Cardiomediastinal silhouette is within normal limits. Osseous structures are intact. Cholecystectomy clips are present within the ri ght upper quadrant. IMPRESSION: Right perihilar and upper lung opacities suspicious for pneumonia. Follow-up after treat ment is recommended.
--- NOTE | 2017-09-02 14:56 | ED ---
SOB HPI - General Chief Complaint: Shortness of Breath Stated Complaint: ANA Time Seen by Provider: 09/02/17 14:22 Source: patient, RN notes reviewed Mode of arrival: ambulatory Limitations: no limitations - History of Present Illness Initial Comments: This is a 32-year-old female presents emergency Department chief complaint of cough congestion. Patient states she has been sick for 1 week states progressively getting worse. Patient states she does was discharged from the hospital yesterday for seizures, altered mental status. She states she does not remember but she has remembers stating that she did not feel all that she had a cough though she did not have an x-ray and the doctor and patient told her that she was fine. Patient states her cough is productive. Patient states she is a daily smoker. She does have a history of asthma and does not use current inhaler. Patient has a history of illicit drug use. - Related Data Previous Rx's Medication Instructions Recorded Albuterol Sulfate [Proair Hfa] 1 - 2 puff INHALATION Q4HR PRN #1 09/02/17 inhaler Levofloxacin [Levaquin] 500 mg PO DAILY #10 tab 09/02/17 predniSONE 50 mg PO DAILY #5 tab 09/02/17 Allergies Allergy/AdvReac Type Severity Reaction Status Date / Time morphine Allergy Unknown Rash/Hives Verified 09/02/17 14:18 metoclopramide [From Reglan] AdvReac Itching Verified 09/02/17 14:18 Review of Systems ROS Statement: Those systems with pertinent positive or pertinent negative responses have been documented in the HPI. ROS Other: All systems not noted in ROS Statement are negative. Past Medical History Past Medical History: No Reported History Additional Past Medical History / Comment(s): Other HX: Hep C, sciatica, MRSA left arm 2014, heroin abuse, restless leg syndrome History of Any Multi-Drug Resistant Organisms: MRSA Date of last positivie culture/infection: 05/06/2014 MDRO Source:: Left Elbow Past Surgical History: Cholecystectomy Additional Past Surgical History / Comment(s): needle removed from right arm 2012 Past Anesthesia/Blood Transfusion Reactions: No Reported Reaction Additional Past Anesthesia/Blood Transfusion Reaction / Comment(s): Pt states she has never recieved blood. Past Psychological History: Anxiety, Depression Smoking Status: Current every day smoker Past Alcohol Use History: Rare Past Drug Use History: None Reported, Cocaine, Heroin, Marijuana - Past Family History Father Additional Family Medical History / Comment(s): Father is an alcoholic. Mother Additional Family Medical History / Comment(s): Mother is an alcoholic General Exam Limitations: no limitations General appearance: alert, in no apparent distress Head exam: Present: atraumatic, normocephalic, normal inspection Eye exam: Present: normal appearance, PERRL, EOMI. Absent: scleral icterus, conjunctival injection, periorbital swelling ENT exam: Present: normal exam, normal oropharynx, mucous membranes moist, TM's normal bilaterally Neck exam: Present: normal inspection. Absent: tenderness, meningismus, lymphadenopathy Respiratory exam: Present: wheezes, rhonchi (Primarily on the right). Absent: normal lung sounds bilaterally, respiratory distress, rales, stridor Cardiovascular Exam: Present: regular rate, normal rhythm, normal heart sounds. Absent: systolic murmur, diastolic murmur, rubs, gallop, clicks Skin exam: Present: warm, dry, intact, normal color. Absent: rash Course Vital Signs 09/02/17 09/02/17 14:15 14:43 Temperature 98.6 F Pulse Rate 64 Respiratory 18 20 Rate Blood Pressure 127/68 O2 Sat by Pulse 100 Oximetry Medical Decision Making - Medical Decision Making 32-year-old female presented for cough congestion. Patient's found to have pneumonia. Patient vitals are stable she has no fever at this time. Patient is a daily smoker has bronchospasms. Patient was given DuoNeb treatment in the emergency Department which has helped. Patient will be discharged on antibiotics, steroids and inhaler. She is advised to follow-up of on Sunday and return for worsening symptoms. Disposition Clinical Impression: Pneumonia, Acute bronchospasm Disposition: HOME SELF-CARE Condition: Stable Instructions: Bacterial Pneumonia (ED) Additional Instructions: Please return to the Emergency Department if symptoms worsen or any other concerns. Prescriptions: Albuterol Sulfate [Proair Hfa] 1 - 2 puff INHALATION Q4HR PRN #1 inhaler PRN Reason: difficulty in breathing Levofloxacin [Levaquin] 500 mg PO DAILY #10 tab predniSONE 50 mg PO DAILY #5 tab Is patient prescribed a controlled substance at d/c from ED?: No Referrals: None,Stated [Primary Care Provider] - 1-2 days Eloisa Sutton MD [STAFF PHYSICIAN] - 1-2 days Time of Disposition: 15:08
[2017-09-02] MEDS ORDERED: cefTRIAXone IN SWFI 1,000 MG/10 ML SYRINGE IVP STA (15:06)
[2017-09-02 15:39] VITALS: PULSE 70
[2017-09-02] MEDS ORDERED: cefTRIAXone 1,000 MG VIAL (IM USE) IM STA (15:41)
== END 2017-09-02 15:51 | disposition home or self-care (01) ==
LOC: EC 14:04
DX: J18.9 Pneumonia, unspecified organism (principal); J98.01 Acute bronchospasm; F17.200 Nicotine dependence, unspecified, uncomplicated; Z86.14 Personal history of Methicillin resistant Staphylococcus aureus infection; Z88.5 Allergy status to narcotic agent; Z88.6 Allergy status to analgesic agent
CPT/HCPCS: 94640; 71046; 99285; 96372; J0696

== ENCOUNTER 2017-09-03 05:59 | Emergency (ER) | payer OTHER ==
[2017-09-03] MEDS ORDERED: IPRATROPIUM 0.5 MG/2.5 ML NEBU INHALATION STA (06:02)
[2017-09-03] MEDS ORDERED: ALBUTEROL NEBULIZED 2.5 MG/3 ML INHALATION STA (06:02)
[2017-09-03] MEDS ORDERED: methylPREDNISolone SOD SUCCI 125 MG/2 ML VIAL IV STA (06:02)
[2017-09-03 06:14] LABS: Basophils % (A) 0 %; Eosinophils # (A) 0.2 k/uL (0-0.7); Eosinophils % (A) 3 %; HCT 38.1 % (34.0-46.0); HGB 13.3 gm/dL (11.4-16.0); Lymphocytes # (A) 1.9 k/uL (1.0-4.8); Lymphocytes % (A) 36 %; MCHC 34.9 g/dL (31.0-37.0); MCV 83.1 fL (80.0-100.0); Mean Platelet Volume 8.7; Monocytes # (A) 0.2 k/uL (0-1.0); Monocytes % (A) 4 %; Neutrophils % (A) 54 %; Platelet Count 150 k/uL (150-450); RBC 4.58 m/uL (3.80-5.40); RDW 14.2 % (11.5-15.5); WBC 5.5 k/uL (3.8-10.6)
[2017-09-03 06:23] LABS: INR 1.1 (<1.2); Partial Thromboplastin Time 24.8 sec (22.0-30.0); Prothrombin Time 10.3 sec (9.0-12.0)
[2017-09-03 06:28] LABS: ALT 65 U/L (9-52); AST 48 U/L (14-36); Albumin 3.4 g/dL (3.5-5.0); Alkaline Phosphatase 66 U/L (38-126); Anion Gap 10 mmol/L; Blood Urea Nitrogen 8 mg/dL (7-17); Calcium 8.7 mg/dL (8.4-10.2); Carbon Dioxide 26 mmol/L (22-30); Chloride 108 mmol/L (98-107); Glucose 98 mg/dL (74-99); Magnesium 1.7 mg/dL (1.6-2.3); Sodium 144 mmol/L (137-145); Total Bilirubin 0.3 mg/dL (0.2-1.3); Total Protein 6.5 g/dL (6.3-8.2)
--- NOTE | 2017-09-03 06:32 | ED ---
General Adult HPI - General Chief complaint: Shortness of Breath Stated complaint: diff breathing Time Seen by Provider: 09/03/17 06:01 Source: patient, RN notes reviewed, old records reviewed Mode of arrival: EMS Limitations: no limitations - History of Present Illness Initial comments: 32-year-old female presenting for evaluation of cough and dyspnea. Patient states she was diagnosed yesterday. She states today her symptoms have not improved she has been coughing which is productive of sputum. She was prescribed steroids and antibiotics, however she did not have these medications filled yet. Denies fever. Denies URI symptoms. She denies abdominal pain nausea vomiting. She is having some chest pain which is worse with cough. Patient has history of asthma and illicit drug abuse. - Related Data Home Medications Medication Instructions Recorded Confirmed Albuterol Sulfate [Proair Hfa] 1 - 2 puff INHALATION RT-Q4H PRN 09/03/17 Previous Rx's Medication Instructions Recorded Levofloxacin [Levaquin] 500 mg PO DAILY #10 tab 09/02/17 predniSONE 50 mg PO DAILY #5 tab 09/02/17 Albuterol Inhaler [Ventolin Hfa 1 - 2 puff INHALATION Q4HR PRN #1 09/03/17 Inhaler] inhaler Clindamycin [Cleocin] 450 mg PO Q6H #28 capsule 09/03/17 Allergies Allergy/AdvReac Type Severity Reaction Status Date / Time morphine Allergy Unknown Rash/Hives Verified 09/03/17 07:21 metoclopramide [From Reglan] AdvReac Itching Verified 09/03/17 07:21 Review of Systems ROS Statement: Those systems with pertinent positive or pertinent negative responses have been documented in the HPI. ROS Other: All systems not noted in ROS Statement are negative. Past Medical History Past Medical History: No Reported History Additional Past Medical History / Comment(s): Other HX: Hep C, sciatica, MRSA left arm 2014, heroin abuse, restless leg syndrome History of Any Multi-Drug Resistant Organisms: MRSA Date of last positivie culture/infection: 05/06/2014 MDRO Source:: Left Elbow Past Surgical History: Cholecystectomy Additional Past Surgical History / Comment(s): needle removed from right arm 2012 Past Anesthesia/Blood Transfusion Reactions: No Reported Reaction Additional Past Anesthesia/Blood Transfusion Reaction / Comment(s): Pt states she has never recieved blood. Past Psychological History: Anxiety, Depression Smoking Status: Current every day smoker Past Alcohol Use History: Rare Past Drug Use History: None Reported, Cocaine, Heroin, Marijuana - Past Family History Father Additional Family Medical History / Comment(s): Father is an alcoholic. Mother Additional Family Medical History / Comment(s): Mother is an alcoholic General Exam Limitations: no limitations General appearance: alert, in no apparent distress Head exam: Present: atraumatic, normocephalic Eye exam: Present: normal appearance, PERRL, EOMI ENT exam: Present: normal exam Neck exam: Present: normal inspection. Absent: tenderness, meningismus Respiratory exam: Present: respiratory distress, wheezes, rhonchi, prolonged expiratory Cardiovascular Exam: Present: normal rhythm, bradycardia GI/Abdominal exam: Present: soft. Absent: distended, tenderness, guarding Extremities exam: Present: normal inspection, normal capillary refill. Absent: pedal edema, calf tenderness Neurological exam: Present: alert, oriented X3, CN II-XII intact. Absent: motor sensory deficit Course Vital Signs 09/03/17 09/03/17 09/03/17 06:00 06:11 06:30 Temperature 97.8 F Pulse Rate 62 65 72 Respiratory 20 Rate Blood Pressure 138/80 O2 Sat by Pulse 92 L Oximetry 09/03/17 06:48 Temperature Pulse Rate 64 Respiratory 16 Rate Blood Pressure 137/64 O2 Sat by Pulse 97 Oximetry EKG Findings - EKG Comments: EKG Findings:: EKG: Sinus bradycardia with sinus arrhythmia rate of 50, NC interval 158, QRS duration 82, QTC 443, no ST segment elevation Medical Decision Making - Medical Decision Making 32-year-old female presenting with cough and dyspnea. She was diagnosed with pneumonia yesterday. She does have history of asthma. She was prescribed steroids and Levaquin. She has not filled these medications yet. On exam, patient is comfortable, vital signs are stable. She does have rhonchi and wheezing predominately in the right lung field. Laboratory studies reveal normal white blood cell count, stable hemoglobin. Electrolytes are significant for hypokalemia at 3.0. This is replaced. Influenza is negative. After initial treatment with albuterol, Atrovent, steroids patient is feeling much better. She has improved air entry. Chest x-ray does show worsening pneumonia which is right lower lobe. Given the patient's drug history, there is possibility of aspiration. Clindamycin will be added to her previous prescription of Levaquin. - Lab Data Result diagrams: 09/03/17 06:04 09/03/17 06:04 Lab Results 09/03/17 09/03/17 09/03/17 Range/Units 06:04 06:04 06:04 WBC 5.5 (3.8-10.6) k/uL RBC 4.58 (3.80-5.40) m/uL Hgb 13.3 (11.4-16.0) gm/dL Hct 38.1 (34.0-46.0) % MCV 83.1 (80.0-100.0) fL MCH 29.0 (25.0-35.0) pg MCHC 34.9 (31.0-37.0) g/dL RDW 14.2 (11.5-15.5) % Plt Count 150 (150-450) k/uL Neutrophils % 54 % Lymphocytes % 36 % Monocytes % 4 % Eosinophils % 3 % Basophils % 0 % Neutrophils # 3.0 (1.3-7.7) k/uL Lymphocytes # 1.9 (1.0-4.8) k/uL Monocytes # 0.2 (0-1.0) k/uL Eosinophils # 0.2 (0-0.7) k/uL Basophils # 0.0 (0-0.2) k/uL PT 10.3 (9.0-12.0) sec INR 1.1 (<1.2) APTT 24.8 (22.0-30.0) sec Sodium 144 (137-145) mmol/L Potassium 3.0 L* (3.5-5.1) mmol/L Chloride 108 H (98-107) mmol/L Carbon Dioxide 26 (22-30) mmol/L Anion Gap 10 mmol/L BUN 8 (7-17) mg/dL Creatinine 0.50 L (0.52-1.04) mg/dL Est GFR (CKD-EPI)AfAm >90 (>60 ml/min/1.73 sqM) Est GFR (CKD-EPI)NonAf >90 (>60 ml/min/1.73 sqM) Glucose 98 (74-99) mg/dL Calcium 8.7 (8.4-10.2) mg/dL Magnesium 1.7 (1.6-2.3) mg/dL Total Bilirubin 0.3 (0.2-1.3) mg/dL AST 48 H (14-36) U/L ALT 65 H (9-52) U/L Alkaline Phosphatase 66 (38-126) U/L Total Protein 6.5 (6.3-8.2) g/dL Albumin 3.4 L (3.5-5.0) g/dL HCG, Quant mIU/mL Influenza Type A RNA (Not Detectd) Influenza Type B (PCR) (Not Detectd) 09/03/17 09/03/17 Range/Units 06:04 06:09 WBC (3.8-10.6) k/uL RBC (3.80-5.40) m/uL Hgb (11.4-16.0) gm/dL Hct (34.0-46.0) % MCV (80.0-100.0) fL MCH (25.0-35.0) pg MCHC (31.0-37.0) g/dL RDW (11.5-15.5) % Plt Count (150-450) k/uL Neutrophils % % Lymphocytes % % Monocytes % % Eosinophils % % Basophils % % Neutrophils # (1.3-7.7) k/uL Lymphocytes # (1.0-4.8) k/uL Monocytes # (0-1.0) k/uL Eosinophils # (0-0.7) k/uL Basophils # (0-0.2) k/uL PT (9.0-12.0) sec INR (<1.2) APTT (22.0-30.0) sec Sodium (137-145) mmol/L Potassium (3.5-5.1) mmol/L Chloride (98-107) mmol/L Carbon Dioxide (22-30) mmol/L Anion Gap mmol/L BUN (7-17) mg/dL Creatinine (0.52-1.04) mg/dL Est GFR (CKD-EPI)AfAm (>60 ml/min/1.73 sqM) Est GFR (CKD-EPI)NonAf (>60 ml/min/1.73 sqM) Glucose (74-99) mg/dL Calcium (8.4-10.2) mg/dL Magnesium (1.6-2.3) mg/dL Total Bilirubin (0.2-1.3) mg/dL AST (14-36) U/L ALT (9-52) U/L Alkaline Phosphatase (38-126) U/L Total Protein (6.3-8.2) g/dL Albumin (3.5-5.0) g/dL HCG, Quant <2.4 mIU/mL Influenza Type A RNA Not Detected (Not Detectd) Influenza Type B (PCR) Not Detected (Not Detectd) Disposition Clinical Impression: Pneumonia, Community acquired pneumonia Disposition: HOME SELF-CARE Condition: Stable Instructions: Asthma (ED), Pneumonia (ED) Additional Instructions: Please continue prescribed antibiotics and steroids. Prescriptions: Albuterol Inhaler [Ventolin Hfa Inhaler] 1 - 2 puff INHALATION Q4HR PRN #1 inhaler PRN Reason: Shortness Of Breath Clindamycin [Cleocin] 450 mg PO Q6H #28 capsule Is patient prescribed a controlled substance at d/c from ED?: No Referrals: Rosamaria Trujillo MD [Primary Care Provider] - 1-2 days Time of Disposition: 06:58
[2017-09-03] MEDS ORDERED: POTASSIUM CHLORIDE ER 20 MEQ TAB.ER PO STA (06:35)
[2017-09-03] MEDS ORDERED: KETOROLAC 30 MG/ML 1 ML VIAL IVP STA (06:49)
[2017-09-03] MEDS ORDERED: LEVOFLOXACIN 500 MG TAB PO STA (06:56)
--- NOTE | 2017-09-03 07:35 | XR ---
EXAM: XR Chest, 2 Views. CLINICAL HISTORY: Reason: difficulty breathing TECHNIQUE: Frontal and lateral views of the chest. COMPARISON: 09/02/17 at 1447 hrs. FINDINGS: Lungs: Slight worsening of right lower lobe airspace opacity, suggestive of pneumonia. Alternatively this may be due to aspiration. Pleural spaces: No pleural effusions. No pneumothorax. Heart: No cardiomegaly. Mediastinum: No mediastinal widening or shift. Bones: Unremarkable. No acute fracture. IMPRESSION: Worsened right lower lobe airspace opacity suggestive of either pneumonia or aspiration.
[2017-09-03 07:54] VITALS: BP 128/67; PULSE 77; RESP 18; TEMP 98.7
== END 2017-09-03 07:52 | disposition home or self-care (01) ==
LOC: EC 05:59
DX: J18.9 Pneumonia, unspecified organism (principal); E87.6 Hypokalemia; F17.200 Nicotine dependence, unspecified, uncomplicated; Z86.19 Personal history of other infectious and parasitic diseases; Z86.14 Personal history of Methicillin resistant Staphylococcus aureus infection; Z88.5 Allergy status to narcotic agent; Z88.8 Allergy status to other drugs, medicaments and biological substances
CPT/HCPCS: 36415; 94640; 93005; 80053; 83735; 85025; 85610; 85730; 84702; 87040; 87502; 71046; 99285; 96374; 96375; J2930; J1885

== ENCOUNTER 2017-09-10 18:47 | Emergency (ER) | payer OTHER ==
[2017-09-10 18:57] VITALS: BP 159/73; PULSE 87; RESP 18; TEMP 97.6
[2017-09-10] MEDS ORDERED: SODIUM CHLORIDE 0.9% 1,000 ML IV ONE (19:02)
[2017-09-10] MEDS ORDERED: LORazepam 1 MG TAB PO STA (19:02)
[2017-09-10] MEDS ORDERED: ONDANSETRON 4 MG/2 ML VIAL IVP STA (19:02)
[2017-09-10] MEDS ORDERED: SODIUM CHLORIDE 0.9% 1,000 ML IV SCH (19:15)
[2017-09-10] MEDS ORDERED: LORazepam 2 MG/ML INJ IV STA (19:25)
--- NOTE | 2017-09-10 19:44 | ED ---
Nausea/Vomiting/Diarrhea HPI - General Chief complaint: Nausea/Vomiting/Diarrhea Stated complaint: abd pain Time Seen by Provider: 09/10/17 18:59 Source: patient, EMS, RN notes reviewed Mode of arrival: EMS Limitations: no limitations - History of Present Illness Initial comments: Patient is a 32-year-old female well-known to the emergency Department chief complaint nausea and vomiting. She was in the emergency department earlier today and eloped after not receiving pain medication. Patient states she's been vomiting and having withdrawals. Patient was recently diagnosed with pneumonia in the emergency department last week. She tells me she did not take any of her medications. Patient has been irate. Throwing her hands on her throat to make herself vomit. - Related Data Previous Rx's Medication Instructions Recorded Ondansetron Odt [Zofran Odt] 4 mg PO Q8HR PRN #12 tab 09/10/17 Allergies Allergy/AdvReac Type Severity Reaction Status Date / Time morphine Allergy Unknown Rash/Hives Verified 09/10/17 19:08 metoclopramide [From Reglan] AdvReac Itching Verified 09/10/17 19:08 Review of Systems ROS Statement: Those systems with pertinent positive or pertinent negative responses have been documented in the HPI. ROS Other: All systems not noted in ROS Statement are negative. Past Medical History Past Medical History: No Reported History Additional Past Medical History / Comment(s): Other HX: Hep C, sciatica, MRSA left arm 2014, heroin abuse, restless leg syndrome History of Any Multi-Drug Resistant Organisms: MRSA Date of last positivie culture/infection: 05/06/2014 MDRO Source:: Left Elbow Past Surgical History: Cholecystectomy Additional Past Surgical History / Comment(s): needle removed from right arm 2012 Past Anesthesia/Blood Transfusion Reactions: No Reported Reaction Additional Past Anesthesia/Blood Transfusion Reaction / Comment(s): Pt states she has never recieved blood. Past Psychological History: Anxiety, Depression Smoking Status: Current every day smoker Past Alcohol Use History: Rare Past Drug Use History: None Reported, Cocaine, Heroin, Marijuana - Past Family History Father Additional Family Medical History / Comment(s): Father is an alcoholic. Mother Additional Family Medical History / Comment(s): Mother is an alcoholic General Exam - General Exam Comments Initial Comments: 32-year-old female. Patient is begging for narcotic pain medication. Running around the exam room and ER. Limitations: no limitations General appearance: alert, in no apparent distress Head exam: Present: atraumatic, normocephalic, normal inspection Eye exam: Present: normal appearance, PERRL, EOMI. Absent: scleral icterus, conjunctival injection, periorbital swelling ENT exam: Present: normal exam, mucous membranes moist Neck exam: Present: normal inspection. Absent: tenderness, meningismus, lymphadenopathy Respiratory exam: Present: normal lung sounds bilaterally. Absent: respiratory distress, wheezes, rales, rhonchi, stridor Cardiovascular Exam: Present: regular rate, normal rhythm, normal heart sounds. Absent: systolic murmur, diastolic murmur, rubs, gallop, clicks GI/Abdominal exam: Present: soft, normal bowel sounds. Absent: distended, tenderness, guarding, rebound, rigid Extremities exam: Present: normal inspection, full ROM, normal capillary refill. Absent: tenderness, pedal edema, joint swelling, calf tenderness Back exam: Present: normal inspection Neurological exam: Present: alert, oriented X3, CN II-XII intact Psychiatric exam: Present: normal affect, normal mood Skin exam: Present: warm, dry, intact, normal color. Absent: rash Course Vital Signs 09/10/17 18:51 Temperature 97.6 F Pulse Rate 87 Respiratory 18 Rate Blood Pressure 159/73 O2 Sat by Pulse 99 Oximetry - Reevaluation(s) Reevaluation #1: 09/10/17 21:15 Patient has vomited and through her bucket of vomit all over the hallway of the emergency department. Medical Decision Making - Medical Decision Making 32-year-old female presents emergency room tingling going through withdrawals. Patient is been a rate in the emergency department. She is throwing her fingers down her throat and forced himself to vomit. She's vomited all over the hallways. Patient has been begging for narcotic pain medicine. Going through withdrawals from heroin. Was given a dose of methadone. She is given 0.5 mg Ativan B, we checked her lab work. I did check a chest x-ray done at this time. There does appear to be normal chest x-ray. Clearing of the previous pneumonia. This is unusual she did state that she did not take her antibiotics as previous a prescribed. - Lab Data Result diagrams: 09/10/17 20:55 09/10/17 20:55 Lab Results 09/10/17 09/10/17 09/10/17 Range/Units 20:55 20:55 20:55 WBC 8.2 (3.8-10.6) k/uL RBC 4.14 (3.80-5.40) m/uL Hgb 12.0 (11.4-16.0) gm/dL Hct 35.8 (34.0-46.0) % MCV 86.5 (80.0-100.0) fL MCH 28.9 (25.0-35.0) pg MCHC 33.5 (31.0-37.0) g/dL RDW 14.1 (11.5-15.5) % Plt Count 196 (150-450) k/uL Neutrophils % 76 % Lymphocytes % 17 % Monocytes % 3 % Eosinophils % 1 % Basophils % 0 % Neutrophils # 6.2 (1.3-7.7) k/uL Lymphocytes # 1.4 (1.0-4.8) k/uL Monocytes # 0.3 (0-1.0) k/uL Eosinophils # 0.0 (0-0.7) k/uL Basophils # 0.0 (0-0.2) k/uL Sodium 145 (137-145) mmol/L Potassium 3.2 L (3.5-5.1) mmol/L Chloride 111 H (98-107) mmol/L Carbon Dioxide 23 (22-30) mmol/L Anion Gap 11 mmol/L BUN 9 (7-17) mg/dL Creatinine 0.40 L (0.52-1.04) mg/dL Est GFR (CKD-EPI)AfAm >90 (>60 ml/min/1.73 sqM) Est GFR (CKD-EPI)NonAf >90 (>60 ml/min/1.73 sqM) Glucose 88 (74-99) mg/dL Plasma Lactic Acid August 1.9 (0.7-2.0) mmol/L Calcium 8.3 L (8.4-10.2) mg/dL Total Bilirubin 0.6 (0.2-1.3) mg/dL AST 24 (14-36) U/L ALT 115 H (9-52) U/L Alkaline Phosphatase 89 (38-126) U/L Total Protein 6.3 (6.3-8.2) g/dL Albumin 3.3 L (3.5-5.0) g/dL - Radiology Data Radiology results: report reviewed Chest x-rays reviewed and negative for any acute process. KUB is reviewed and normal. Disposition Clinical Impression: Vomiting, Acute drug withdrawal syndrome Disposition: HOME SELF-CARE Condition: Good Instructions: Acute Nausea and Vomiting (ED) Additional Instructions: Patient advised to follow up with primary care provider. Return to the emergency department if any alarming signs or symptoms occur. Stop using drugs. Prescriptions: Ondansetron Odt [Zofran Odt] 4 mg PO Q8HR PRN #12 tab PRN Reason: Nausea Is patient prescribed a controlled substance at d/c from ED?: No If prescribed controlled substance>3 days was MAPS reviewed?: No When asked, does pt state using other controlled substances?: No Referrals: None,Stated [Primary Care Provider] - 1-2 days Eloisa Sutton MD [STAFF PHYSICIAN] - 1-2 days Time of Disposition: 21:16
[2017-09-10] MEDS ORDERED: METHADONE 5 MG TAB PO STA (20:04)
--- NOTE | 2017-09-10 20:22 | XR ---
EXAMINATION TYPE: XR chest 2V DATE OF EXAM: 09/10/2017 COMPARISON: 09/03/2017 HISTORY: Nausea and vomiting TECHNIQUE: Frontal and lateral views of the chest are obtained. FINDINGS: Heart and mediastinum are normal. Lungs are clear. Diaphragm is normal. Bony thorax is int act. IMPRESSION: Normal chest. No change.
--- NOTE | 2017-09-10 20:23 | XR ---
EXAMINATION TYPE: XR KUB DATE OF EXAM: 09/10/2017 COMPARISON: 04/06/2017 HISTORY: Nausea and vomiting TECHNIQUE: 2 views FINDINGS: There is no sign of intestinal obstruction or pneumoperitoneum. Fecal pattern is normal. Th ere are clips from cholecystectomy. Lung bases are clear. IMPRESSION: Nonacute abdomen. No change.
[2017-09-10 21:27] LABS: Basophils % (A) 0 %; Eosinophils % (A) 1 %; HCT 35.8 % (34.0-46.0); Lymphocytes # (A) 1.4 k/uL (1.0-4.8); Lymphocytes % (A) 17 %; MCH 28.9 pg (25.0-35.0); MCHC 33.5 g/dL (31.0-37.0); MCV 86.5 fL (80.0-100.0); Mean Platelet Volume 8.5; Monocytes # (A) 0.3 k/uL (0-1.0); Monocytes % (A) 3 %; Neutrophils # (A) 6.2 k/uL (1.3-7.7); Neutrophils % (A) 76 %; Platelet Count 196 k/uL (150-450); RBC 4.14 m/uL (3.80-5.40); RDW 14.1 % (11.5-15.5); WBC 8.2 k/uL (3.8-10.6)
[2017-09-10 21:35] LABS: ALT 115 U/L (9-52); AST 24 U/L (14-36); Albumin 3.3 g/dL (3.5-5.0); Alkaline Phosphatase 89 U/L (38-126); Anion Gap 11 mmol/L; Blood Urea Nitrogen 9 mg/dL (7-17); Calcium 8.3 mg/dL (8.4-10.2); Carbon Dioxide 23 mmol/L (22-30); Chloride 111 mmol/L (98-107); Glucose 88 mg/dL (74-99); Potassium 3.2 mmol/L (3.5-5.1); Sodium 145 mmol/L (137-145); Total Bilirubin 0.6 mg/dL (0.2-1.3); Total Protein 6.3 g/dL (6.3-8.2)
== END 2017-09-10 22:00 | disposition home or self-care (01) ==
LOC: EC 18:47
DX: F11.23 Opioid dependence with withdrawal (principal); J18.9 Pneumonia, unspecified organism; F17.200 Nicotine dependence, unspecified, uncomplicated; Z88.5 Allergy status to narcotic agent; Z88.8 Allergy status to other drugs, medicaments and biological substances; Z86.14 Personal history of Methicillin resistant Staphylococcus aureus infection; Z90.49 Acquired absence of other specified parts of digestive tract; Z53.8 Procedure and treatment not carried out for other reasons
CPT/HCPCS: 99285; 96374; 36415; 80053; 83605; 85025; 87040; 71046; 74018; J2405; S0109

== ENCOUNTER 2019-06-01 23:57 | Emergency (ER) | payer OTHER ==
--- NOTE | 2019-06-02 00:07 | ED ---
Overdose HPI - General Stated Complaint: Heroin overdose Time Seen by Provider: 06/02/19 00:04 Source: RN notes reviewed, old records reviewed Mode of arrival: EMS Limitations: no limitations - History of Present Illness Initial Comments: This is a 34-year-old female presents here for evaluation of left use and heroin use tonight patient did overdose on the heroin was given Narcan by EMS and brought here for evaluation patient denies homicidal or suicidal thoughts denies any other drug or alcohol use tonight. Patient denying any shortness of breath and chest pain but does have nausea and vomiting MD Complaint: intentional overdose -: minutes(s) Intent: want to escape How Overdose Was Discovered: family/friend present at time Context: Intentional Overdose: drug/ETOH problems Context: Accidental Overdose: wanted to get high Treatments Prior to Arrival: none - Related Data Previous Rx's Medication Instructions Recorded Ondansetron Odt [Zofran Odt] 4 mg PO Q8HR PRN #12 tab 09/10/17 Allergies Allergy/AdvReac Type Severity Reaction Status Date / Time morphine Allergy Unknown Rash/Hives Verified 09/10/17 19:08 metoclopramide [From Reglan] AdvReac Itching Verified 09/10/17 19:08 Review of Systems ROS Statement: Those systems with pertinent positive or pertinent negative responses have been documented in the HPI. ROS Other: All systems not noted in ROS Statement are negative. Past Medical History Past Medical History: No Reported History Additional Past Medical History / Comment(s): Other HX: Hep C, sciatica, MRSA left arm 2014, heroin abuse, restless leg syndrome History of Any Multi-Drug Resistant Organisms: MRSA Date of last positivie culture/infection: 05/06/2014 MDRO Source:: Left Elbow Past Surgical History: Cholecystectomy Additional Past Surgical History / Comment(s): needle removed from right arm 2012 Past Anesthesia/Blood Transfusion Reactions: No Reported Reaction Additional Past Anesthesia/Blood Transfusion Reaction / Comment(s): Pt states she has never recieved blood. Past Psychological History: Anxiety, Depression Smoking Status: Current every day smoker Past Alcohol Use History: Rare Past Drug Use History: None Reported, Cocaine, Heroin, Marijuana - Past Family History Father Additional Family Medical History / Comment(s): Father is an alcoholic. Mother Additional Family Medical History / Comment(s): Mother is an alcoholic General Exam General appearance: alert, in no apparent distress Head exam: Present: atraumatic, normocephalic, normal inspection Eye exam: Present: normal appearance, PERRL, EOMI. Absent: scleral icterus, conjunctival injection, periorbital swelling ENT exam: Present: normal exam, mucous membranes moist Neck exam: Present: normal inspection. Absent: tenderness, meningismus, lymphadenopathy Respiratory exam: Present: normal lung sounds bilaterally. Absent: respiratory distress, wheezes, rales, rhonchi, stridor Cardiovascular Exam: Present: regular rate, normal rhythm, normal heart sounds. Absent: systolic murmur, diastolic murmur, rubs, gallop, clicks GI/Abdominal exam: Present: soft, normal bowel sounds. Absent: distended, tenderness, guarding, rebound, rigid Extremities exam: Present: normal inspection, full ROM, normal capillary refill. Absent: tenderness, pedal edema, joint swelling, calf tenderness Back exam: Present: normal inspection Neurological exam: Present: alert, oriented X3, CN II-XII intact Psychiatric exam: Present: normal affect, normal mood Skin exam: Present: warm, dry, intact, normal color. Absent: rash Course Vital Signs 06/02/19 00:04 Temperature 97.6 F Pulse Rate 100 Respiratory 16 Rate Blood Pressure 106/85 O2 Sat by Pulse 100 Oximetry - Reevaluation(s) Reevaluation #1: 06/02/19 00:31 Medical records reviewed Reevaluation #2: 06/02/19 00:31 she is actively vomiting Medical Decision Making - Medical Decision Making 34 female the ER for evaluation. Patient was unsafe for evaluation regarding overdose. Overdoses resulted in the ER patient remains awake and alert we'll discharge after given some nausea medications and patient currently feeling better Disposition Clinical Impression: Heroin overdose Disposition: HOME SELF-CARE Condition: Good Instructions (If sedation given, give patient instructions): Narcotic Safety (ED), Opioid Safety (ED), Adult Overdose (ED) Is patient prescribed a controlled substance at d/c from ED?: No Referrals: None,Stated [Primary Care Provider] - 1-2 days
[2019-06-02] MEDS ORDERED: ONDANSETRON 4 MG/2 ML VIAL IVP STA (00:12)
[2019-06-02] MEDS ORDERED: SODIUM CHLORIDE 0.9% 500 ML 500 ML IV STA (00:13)
[2019-06-02] MEDS ORDERED: DIAZEPAM 5 MG/ML 2 ML INJ IVP STA (00:13)
[2019-06-02 04:10] VITALS: BP 105/56; PULSE 90; RESP 18; TEMP 98.7
== END 2019-06-02 04:11 | disposition home or self-care (01) ==
LOC: EC 23:57
DX: T40.1X2A Poisoning by heroin, intentional self-harm, initial encounter (principal); F17.200 Nicotine dependence, unspecified, uncomplicated; Z88.5 Allergy status to narcotic agent; Z88.8 Allergy status to other drugs, medicaments and biological substances; Z86.14 Personal history of Methicillin resistant Staphylococcus aureus infection
CPT/HCPCS: 99285; 96374; 96375; 96361; J3360; J2405

== ENCOUNTER 2019-06-02 16:06 | Emergency (ER) | payer OTHER ==
[2019-06-02 16:32] LABS: Basophils # (A) 0.1 k/uL (0-0.2); Basophils % (A) 1 %; Eosinophils # (A) 0.1 k/uL (0-0.7); Eosinophils % (A) 2 %; HCT 46.7 % (34.0-46.0); HGB 15.1 gm/dL (11.4-16.0); Lymphocytes # (A) 1.4 k/uL (1.0-4.8); Lymphocytes % (A) 22 %; MCH 29.5 pg (25.0-35.0); MCHC 32.5 g/dL (31.0-37.0); MCV 90.9 fL (80.0-100.0); Mean Platelet Volume 9.6; Monocytes # (A) 0.4 k/uL (0-1.0); Monocytes % (A) 6 %; Neutrophils # (A) 4.2 k/uL (1.3-7.7); Neutrophils % (A) 65 %; Platelet Count 241 k/uL (150-450); RBC 5.13 m/uL (3.80-5.40); WBC 6.5 k/uL (3.8-10.6)
[2019-06-02 16:41] LABS: ALT 125 U/L (4-34); AST 47 U/L (14-36); African American GFR (CKD) >90 (>60 ml/min/1.73 sqM); Albumin 4.3 g/dL (3.5-5.0); Alkaline Phosphatase 124 U/L (38-126); Anion Gap 8 mmol/L; Blood Urea Nitrogen 11 mg/dL (7-17); Calcium 9.1 mg/dL (8.4-10.2); Carbon Dioxide 24 mmol/L (22-30); Chloride 106 mmol/L (98-107); Creatine Kinase 71 U/L (30-135); Glucose 176 mg/dL (74-99); Non-African American GFR(CKD) >90 (>60 ml/min/1.73 sqM); Potassium 4.3 mmol/L (3.5-5.1); Sodium 138 mmol/L (137-145); Total Bilirubin 0.7 mg/dL (0.2-1.3); Total Protein 7.6 g/dL (6.3-8.2)
--- NOTE | 2019-06-02 16:57 | XR ---
EXAMINATION TYPE: XR chest 1V portable DATE OF EXAM: 06/02/2019 COMPARISON: 09/10/2017 INDICATION: Apnea, overdose TECHNIQUE: Single frontal view of the chest is obtained. FINDINGS: The heart size is normal. The pulmonary vasculature is normal. The lungs are clear. IMPRESSION: 1. No acute pulmonary process.
[2019-06-02 17:01] LABS: Appearance,Urine Cloudy (Clear); Bilirubin,Urine Negative (Negative); Blood,Urine Negative (Negative); Color,Urine Yellow; Glucose,Urine (UA) Negative (Negative); Ketones,Urine Negative (Negative); Leukocyte Esterase,Urine Trace (Negative); Mucus,Urine Rare /hpf; Nitrite,Urine Negative (Negative); PH, Urine 7.5 (5.0-8.0); Protein,Urine Trace (Negative); RBC,Urine 2 /hpf (0-5); Specific Gravity,Urine 1.019 (1.001-1.035); Squamous Epithelial Cell,Urine 5 /hpf (0-4); WBC,Urine 2 /hpf (0-5)
[2019-06-02 17:08] LABS: Amphetamine Screen,Urine Not Detected (NotDetected); Barbiturate Screen,Urine Not Detected (NotDetected); Benzodiazepines Screen,Urine Not Detected (NotDetected); Cocaine Screen,Urine Detected (NotDetected); Methadone Screen, Urine Not Detected (NotDetected); Opiate Screen,Urine Not Detected (NotDetected); Oxycodone Screen, Urine Not Detected (NotDetected); Phencyclidine Screen,Urine Not Detected (NotDetected); Tricyclic Antidepressant,Urine Not Detected (NotDetected); Urn Cannabinoid Scrn Detected (NotDetected)
--- NOTE | 2019-06-02 17:36 | ED ---
Overdose HPI - General Chief Complaint: Overdose Stated Complaint: Overdose Time Seen by Provider: 06/02/19 16:15 Source: patient, RN/MD Mode of arrival: wheelchair Limitations: altered mental status - History of Present Illness Initial Comments: The patient is a 34-year-old female who presents to the emergency room with altered mental status. I am told that bystanders found the patient on the side of the road unresponsive. She does have a history of opiate abuse. She comes in apneic with perioral cyanosis. The remainder of the HPI is limited because the patient's current condition - Related Data Home Medications Medication Instructions Recorded Confirmed No Known Home Medications 06/02/19 06/02/19 Allergies Allergy/AdvReac Type Severity Reaction Status Date / Time morphine Allergy Unknown Rash/Hives Verified 06/02/19 17:25 metoclopramide [From Reglan] AdvReac Itching Verified 06/02/19 17:25 Review of Systems ROS Statement: Those systems with pertinent positive or pertinent negative responses have been documented in the HPI. ROS Other: All systems not noted in ROS Statement are negative. Past Medical History Past Medical History: No Reported History Additional Past Medical History / Comment(s): Other HX: Hep C, sciatica, MRSA left arm 2014, heroin abuse, restless leg syndrome History of Any Multi-Drug Resistant Organisms: MRSA Date of last positivie culture/infection: 05/06/2014 MDRO Source:: Left Elbow Past Surgical History: Cholecystectomy Additional Past Surgical History / Comment(s): needle removed from right arm 2012 Past Anesthesia/Blood Transfusion Reactions: No Reported Reaction Additional Past Anesthesia/Blood Transfusion Reaction / Comment(s): Pt states she has never recieved blood. Past Psychological History: Anxiety, Depression Smoking Status: Current every day smoker Past Alcohol Use History: Rare Past Drug Use History: None Reported, Cocaine, Heroin, Marijuana - Past Family History Father Additional Family Medical History / Comment(s): Father is an alcoholic. Mother Additional Family Medical History / Comment(s): Mother is an alcoholic General Exam Limitations: altered mental status General appearance: obtunded, in distress Head exam: Present: atraumatic, normocephalic Eye exam: Present: other (pupils are nonreactive) Pupils: Present: miosis Respiratory exam: Present: other (apnea) Cardiovascular Exam: Present: normal rhythm, tachycardia Extremities exam: Present: other (multiple track finley noted to the bilateral upper extremities) Neurological exam: Present: altered Skin exam: Present: cyanosis, mottled Course Vital Signs 06/02/19 06/02/19 06/02/19 16:17 18:02 18:14 Temperature 97.5 F L 97.7 F Pulse Rate 118 H 112 H Respiratory 20 20 4 L Rate Blood Pressure 114/70 107/63 O2 Sat by Pulse 98 98 Oximetry Medical Decision Making - Medical Decision Making Upon arrival the patient was placed immediately in trauma bay 1. She is bagged. Peripheral IV is established and the patient was given 0.4 mg of Narcan. She does become arousable. She is originally confused but is able to answer questions. She states that she did inject heroin prior to hospital arrival. She was at a friend's house when she did this. She states that she was most likely dropped off at the hospital by her friend that she was never on the side of the road. She also admits to using crystal meth today. States he has a history of chronic drug abuse. She denies abuse of any other substances this time. No concern for . Denies any chest pain or shortness of breath. I did recommend laboratory studies and a chest x-ray. CBC is unremarkable. CMP shows an elevated AST and ALTs. Patient does have a history of hep C. Urinalysis shows trace leukocyte esterase. Drug screen is negative for opiates. It is positive for cocaine and marijuana. Chest x-ray demonstrates no acute process. The patient does allow me to observe her in the ER for 90 minutes. She does not have any recurrence of her sedation. I offered to provide the p atient with resources however she refused. The patient is instructed to follow up with primary care doctor in 2-4 days. The risks of previous or stress to the patient and she understood. If she has any new or worsening symptoms she should return to the emergency room. Patient was discharged in stable condition - Lab Data Result diagrams: 06/02/19 16:22 06/02/19 16:22 Lab Results 06/02/19 06/02/19 06/02/19 Range/Units 16:22 16:22 Unknown WBC 6.5 (3.8-10.6) k/uL RBC 5.13 (3.80-5.40) m/uL Hgb 15.1 (11.4-16.0) gm/dL Hct 46.7 H (34.0-46.0) % MCV 90.9 (80.0-100.0) fL MCH 29.5 (25.0-35.0) pg MCHC 32.5 (31.0-37.0) g/dL RDW 14.0 (11.5-15.5) % Plt Count 241 (150-450) k/uL Neutrophils % 65 % Lymphocytes % 22 % Monocytes % 6 % Eosinophils % 2 % Basophils % 1 % Neutrophils # 4.2 (1.3-7.7) k/uL Lymphocytes # 1.4 (1.0-4.8) k/uL Monocytes # 0.4 (0-1.0) k/uL Eosinophils # 0.1 (0-0.7) k/uL Basophils # 0.1 (0-0.2) k/uL Sodium 138 (137-145) mmol/L Potassium 4.3 (3.5-5.1) mmol/L Chloride 106 (98-107) mmol/L Carbon Dioxide 24 (22-30) mmol/L Anion Gap 8 mmol/L BUN 11 (7-17) mg/dL Creatinine 0.51 L (0.52-1.04) mg/dL Est GFR (CKD-EPI)AfAm >90 (>60 ml/min/1.73 sqM) Est GFR (CKD-EPI)NonAf >90 (>60 ml/min/1.73 sqM) Glucose 176 H (74-99) mg/dL Calcium 9.1 (8.4-10.2) mg/dL Total Bilirubin 0.7 (0.2-1.3) mg/dL AST 47 H (14-36) U/L ALT 125 H (4-34) U/L Alkaline Phosphatase 124 (38-126) U/L Creatine Kinase 71 (30-135) U/L Total Protein 7.6 (6.3-8.2) g/dL Albumin 4.3 (3.5-5.0) g/dL Urine Color Yellow Urine Appearance Cloudy H (Clear) Urine pH 7.5 (5.0-8.0) Ur Specific [place] 1.019 (1.001-1.035) Urine Protein Trace H (Negative) Urine Glucose (UA) Negative (Negative) Urine Ketones Negative (Negative) Urine Blood Negative (Negative) Urine Nitrite Negative (Negative) Urine Bilirubin Negative (Negative) Urine Urobilinogen 4.0 (<2.0) mg/dL Ur Leukocyte Esterase Trace H (Negative) Urine RBC 2 (0-5) /hpf Urine WBC 2 (0-5) /hpf Ur Squamous Epith Cells 5 H (0-4) /hpf Urine Mucus Rare H (None) /hpf Urine Opiates Screen Not Detected (NotDetected) Ur Oxycodone Screen Not Detected (NotDetected) Urine Methadone Screen Not Detected (NotDetected) Ur Propoxyphene Screen Not Detected (NotDetected) Ur Barbiturates Screen Not Detected (NotDetected) U Tricyclic Antidepress Not Detected (NotDetected) Ur Phencyclidine Scrn Not Detected (NotDetected) Ur Amphetamines Screen Not Detected (NotDetected) U Methamphetamines Scrn Not Detected (NotDetected) U Benzodiazepines Scrn Not Detected (NotDetected) Urine Cocaine Screen Detected H (NotDetected) U Marijuana (THC) Screen Detected H (NotDetected) - EKG Data EKG Comments: EKG demonstrates a sinus tachycardia with 1 PVC. Rate of 114. MT interval 166. QRS 86. QTC 493. No acute ST segment elevations. Disposition Clinical Impression: Drug overdose Disposition: HOME SELF-CARE Condition: Stable Instructions (If sedation given, give patient instructions): Adult Overdose (ED) Additional Instructions: Please follow-up with your doctor in 2-4 days. Return to emergency department for any new or worsening symptoms Is patient prescribed a controlled substance at d/c from ED?: No Referrals: None,Stated [Primary Care Provider] - 1-2 days Time of Disposition: 17:35
[2019-06-02 18:03] VITALS: BP 107/63; PULSE 112; TEMP 97.7
[2019-06-02] MEDS ORDERED: NALOXONE 0.4 MG/ML 1 ML VIAL IV STA (18:13)
[2019-06-02 18:15] VITALS: RESP 4
== END 2019-06-02 18:03 | disposition home or self-care (01) ==
LOC: EC 16:06
DX: T40.5X1A Poisoning by cocaine, accidental (unintentional), initial encounter (principal); T40.7X1A Poisoning by cannabis (derivatives), accidental (unintentional), initial encounter; R74.0 Nonspecific elevation of levels of transaminase and lactic acid dehydrogenase [LDH]; R82.998 Other abnormal findings in urine; R00.0 Tachycardia, unspecified; F17.200 Nicotine dependence, unspecified, uncomplicated; Z88.8 Allergy status to other drugs, medicaments and biological substances; Z86.14 Personal history of Methicillin resistant Staphylococcus aureus infection; Z86.19 Personal history of other infectious and parasitic diseases; Z81.1 Family history of alcohol abuse and dependence; Z53.20 Procedure and treatment not carried out because of patient's decision for unspecified reasons
CPT/HCPCS: 99284; 96374; 36415; 93005; 80053; 82550; 85025; 81001; 80306; 71045; J2310

== ENCOUNTER 2020-06-23 00:42 | Emergency (ER) | payer OTHER ==
[2020-06-23 00:54] VITALS: BP 123/76; PULSE 116; RESP 16; TEMP 98.6
[2020-06-23] MEDS ORDERED: SODIUM CHLORIDE 0.9% 1,000 ML IV STA (00:55)
[2020-06-23] MEDS ORDERED: VANCOMYCIN IV PER PHARMACY 1 EACH MISC MISCELLANE PRN (01:06)
[2020-06-23] MEDS ORDERED: LIDOCAINE 1%-EPI 1:100,000 20 ML VIAL SQ STA (01:16)
--- NOTE | 2020-06-23 01:16 | ED ---
Skin/Abscess/FB HPI - General Chief complaint: Skin/Abscess/Foreign Body Stated complaint: RT hand infection Time Seen by Provider: 06/23/20 00:54 Source: patient Mode of arrival: ambulatory Limitations: no limitations - History of Present Illness Initial comments: 35-year-old female with history of IV drug use presents to emergency department with a chief complaint of infection of the right hand x 2 days. Patient reports injecting heroin 2 days ago and she had developed an infection near the injection site. Patient also reports separate infection near the antecubital region on the right upper extremity that appears to have streaking moving prox imally to the axilla. She reports chills but no fevers. Reports taking [id number] ALLERGY analgesics analgesics with no significant improvement in his symptoms. Reports the pain is very sharp and tender to touch. 9/10 pain. - Related Data Previous Rx's Medication Instructions Recorded Cephalexin [Keflex] 500 mg PO Q6HR #40 cap 06/23/20 Sulfamethox-Tmp 800-160Mg [Bactrim 1 each PO Q12HR #20 tab 06/23/20 Ds] Allergies Allergy/AdvReac Type Severity Reaction Status Date / Time morphine Allergy Unknown Rash/Hives Verified 06/23/20 00:54 metoclopramide [From Reglan] AdvReac Itching Verified 06/23/20 00:54 Review of Systems ROS Statement: Those systems with pertinent positive or pertinent negative responses have been documented in the HPI. ROS Other: All systems not noted in ROS Statement are negative. Past Medical History Past Medical History: No Reported History Additional Past Medical History / Comment(s): Other HX: Hep C, sciatica, MRSA left arm 2014, heroin abuse, restless leg syndrome History of Any Multi-Drug Resistant Organisms: MRSA Date of last positivie culture/infection: 05/06/2014 MDRO Source:: Left Elbow Past Surgical History: Cholecystectomy Additional Past Surgical History / Comment(s): needle removed from right arm 2012 Past Anesthesia/Blood Transfusion Reactions: No Reported Reaction Additional Past Anesthesia/Blood Transfusion Reaction / Comment(s): Pt states she has never recieved blood. Past Psychological History: Anxiety, Depression Smoking Status: Current every day smoker Past Alcohol Use History: Rare Past Drug Use History: None Reported, Cocaine, Heroin, Marijuana - Past Family History Father Additional Family Medical History / Comment(s): Father is an alcoholic. Mother Additional Family Medical History / Comment(s): Mother is an alcoholic General Exam Limitations: no limitations General appearance: alert, in no apparent distress Head exam: Present: atraumatic, normocephalic, normal inspection Eye exam: Present: normal appearance, PERRL, EOMI Pupils: Present: normal accommodation ENT exam: Present: normal exam, normal oropharynx, mucous membranes moist Neck exam: Present: normal inspection, full ROM. Absent: tenderness Respiratory exam: Present: normal lung sounds bilaterally. Absent: respiratory distress Cardiovascular Exam: Present: normal rhythm, tachycardia, normal heart sounds GI/Abdominal exam: Present: soft. Absent: distended Extremities exam: Present: full ROM, tenderness (Tenderness to the touch at the affected site. There also appears to be an infection in the right antecubital region with lymphangitis moving proximally to the axilla ), normal capillary refill, other (Palpable ulnar and radial pulses bilaterally). Absent: normal inspection (Large abscess on the dorsal aspect of the right hand measuring approximately 5 cm in diameter with a 4 cm diameter of fluctuance with a white center.), pedal edema, joint swelling, calf tenderness Back exam: Present: normal inspection, full ROM Neurological exam: Present: alert, oriented X3, normal gait Psychiatric exam: Present: normal affect, normal mood Skin exam: Present: warm, dry, intact, normal color Course Vital Signs 06/23/20 00:51 Temperature 98.6 F Pulse Rate 116 H Respiratory 16 Rate Blood Pressure 123/76 O2 Sat by Pulse 96 Oximetry Procedures - Incision & Drainage Consent Obtained: verbal consent Indication: Abscess Site: hand Size (cm): 4 Anesthetic Used: lidocaine 1%, with epi Amount (mLs): 2 I&D Cleaning Method: Alcohol Wipe Sterile Field Used?: No Scalpel Used: #11 Needle Aspiration Performed?: No I&D Drainage Obtained: Pus, Blood Culture Obtained?: Yes Complications: pain, bleeding Patient Tolerated Procedure: well, no complications Medical Decision Making - Medical Decision Making 35-year-old male presents to the emergency department with a chief complaint of an infection. On physical examination, patient has abscess in the right hand near the injection site. Patient was given IV fluids, vancomycin. Initially she was tachycardic. No new heart murmurs detected. CBC unremarkable. CMP reveals mild transaminitis. Patient will be discharged with outpatient follow- up, Bactrim and keflex. Patient is otherwise well-appearing and resting c ompletely in bed. Tylenol 3 for pain control. Patient would prefer to be discharged. Return parameters discussed the patient who was understanding and agreeable. Case discussed with - Lab Data Result diagrams: 06/23/20 01:47 06/23/20 01:47 Lab Results 06/23/20 06/23/20 06/23/20 Range/Units 01:47 01:47 01:47 WBC 9.3 (3.8-10.6) k/uL RBC 4.74 (3.80-5.40) m/uL Hgb 13.8 (11.4-16.0) gm/dL Hct 41.4 (34.0-46.0) % MCV 87.2 (80.0-100.0) fL MCH 29.1 (25.0-35.0) pg MCHC 33.3 (31.0-37.0) g/dL RDW 13.3 (11.5-15.5) % Plt Count 277 (150-450) k/uL MPV 9.0 Neutrophils % 76 % Lymphocytes % 16 % Monocytes % 4 % Eosinophils % 2 % Basophils % 0 % Neutrophils # 7.1 (1.3-7.7) k/uL Lymphocytes # 1.5 (1.0-4.8) k/uL Monocytes # 0.4 (0-1.0) k/uL Eosinophils # 0.2 (0-0.7) k/uL Basophils # 0.0 (0-0.2) k/uL Sodium 137 (137-145) mmol/L Potassium 3.6 (3.5-5.1) mmol/L Chloride 101 (98-107) mmol/L Carbon Dioxide 27 (22-30) mmol/L Anion Gap 9 mmol/L BUN 11 (7-17) mg/dL Creatinine 0.47 L (0.52-1.04) mg/dL Est GFR (CKD-EPI)AfAm >90 (>60 ml/min/1.73 sqM) Est GFR (CKD-EPI)NonAf >90 (>60 ml/min/1.73 sqM) Glucose 109 H (74-99) mg/dL Plasma Lactic Acid August 1.3 (0.7-2.0) mmol/L Calcium 9.0 (8.4-10.2) mg/dL Total Bilirubin 0.7 (0.2-1.3) mg/dL AST 56 H (14-36) U/L ALT 83 H (4-34) U/L Alkaline Phosphatase 129 H (38-126) U/L Total Protein 7.6 (6.3-8.2) g/dL Albumin 4.2 (3.5-5.0) g/dL Disposition Clinical Impression: Abscess of hand, right, Lymphangitis Disposition: HOME SELF-CARE Condition: Stable Instructions (If sedation given, give patient instructions): Abscess Incision and Drainage (ED), Abscess (ED) Additional Instructions: Apply warm compresses. Change dressing. Take prescribed medication as directed. Return to emergency department if symptoms worsen. Prescriptions: Sulfamethox-Tmp 800-160Mg [Bactrim Ds] 1 each PO Q12HR #20 tab Cephalexin [Keflex] 500 mg PO Q6HR #40 cap Is patient prescribed a controlled substance at d/c from ED?: No Referrals: None,Stated [Primary Care Provider] - 1-2 days Time of Disposition: 03:04
[2020-06-23] MEDS ORDERED: VANCOMYCIN 1,000 MG in SODIUM CHLORIDE 0.9% 250 ML IVPB ONE (02:00)
[2020-06-23] MEDS ORDERED: cefTRIAXone IN SWFI 1,000 MG/10 ML SYRINGE IVP ONE (02:00)
[2020-06-23 02:23] LABS: Basophils % (A) 0 %; Eosinophils # (A) 0.2 k/uL (0-0.7); Eosinophils % (A) 2 %; HCT 41.4 % (34.0-46.0); HGB 13.8 gm/dL (11.4-16.0); Lymphocytes # (A) 1.5 k/uL (1.0-4.8); Lymphocytes % (A) 16 %; MCH 29.1 pg (25.0-35.0); MCHC 33.3 g/dL (31.0-37.0); MCV 87.2 fL (80.0-100.0); Monocytes # (A) 0.4 k/uL (0-1.0); Monocytes % (A) 4 %; Neutrophils # (A) 7.1 k/uL (1.3-7.7); Neutrophils % (A) 76 %; Platelet Count 277 k/uL (150-450); RBC 4.74 m/uL (3.80-5.40); RDW 13.3 % (11.5-15.5); WBC 9.3 k/uL (3.8-10.6)
[2020-06-23 02:45] LABS: ALT 83 U/L (4-34); AST 56 U/L (14-36); African American GFR (CKD) >90 (>60 ml/min/1.73 sqM); Albumin 4.2 g/dL (3.5-5.0); Alkaline Phosphatase 129 U/L (38-126); Anion Gap 9 mmol/L; Blood Urea Nitrogen 11 mg/dL (7-17); Carbon Dioxide 27 mmol/L (22-30); Chloride 101 mmol/L (98-107); Glucose 109 mg/dL (74-99); Non-African American GFR(CKD) >90 (>60 ml/min/1.73 sqM); Potassium 3.6 mmol/L (3.5-5.1); Sodium 137 mmol/L (137-145); Total Bilirubin 0.7 mg/dL (0.2-1.3); Total Protein 7.6 g/dL (6.3-8.2)
[2020-06-23] MEDS ORDERED: ACET/COD 300 MG/30 MG STARTER PACK 6 TAB BTL PO STA (03:14)
== END 2020-06-23 04:43 | disposition home or self-care (01) ==
LOC: EC 00:42
DX: T80.29XA Infection following other infusion, transfusion and therapeutic injection, initial encounter (principal); L02.511 Cutaneous abscess of right hand; I89.1 Lymphangitis; F17.200 Nicotine dependence, unspecified, uncomplicated; Z90.49 Acquired absence of other specified parts of digestive tract
CPT/HCPCS: 99283; 10060; 96374; 96361; 36415; 80053; 83605; 85025; 87040; 87070; 87205; 87077; 87186; J3370; J0696

== ENCOUNTER 2021-09-02 15:08 | Emergency (ER) | payer OTHER ==
[2021-09-02 15:15] VITALS: RESP 20; TEMP 98
[2021-09-02] MEDS ORDERED: LORazepam 2 MG/ML INJ IV STA (15:20)
--- NOTE | 2021-09-02 16:56 | ED ---
Overdose HPI - General Chief Complaint: Overdose Stated Complaint: overdose Time Seen by Provider: 09/02/21 15:15 Source: patient Mode of arrival: EMS Limitations: no limitations - History of Present Illness Initial Comments: 36-year-old female with past mental history of polysubstance abuse presents to the emergency department after a reported heroin overdose. She states she was in the bathroom at [facility] when she snorted some heroin. When she came out of the bathroom she didn't feel right and told to call EMS. Narcan was never administered. Patient arrives appearing very anxious. States that she used methamphetamines last night. Reports that after she abuses methamphetamines, she will be anxious and "jittery" for days. She denies any chest pain, shortness of breath. No concern for . No other alleviating, precipitating or modifying factors - Related Data Home Medications Medication Instructions Recorded Confirmed Mirtazapine 15 mg PO HS 09/02/21 09/02/21 QUEtiapine [SEROquel] 50 mg PO DAILY 09/02/21 09/02/21 QUEtiapine [SEROquel] 100 mg PO HS 09/02/21 09/02/21 busPIRone HCL 15 mg PO BID 09/02/21 09/02/21 Previous Rx's Medication Instructions Recorded Amoxicillin 875 mg PO Q12HR #20 tablet 09/02/21 Allergies Allergy/AdvReac Type Severity Reaction Status Date / Time morphine Allergy Unknown Rash/Hives Verified 09/02/21 15:58 metoclopramide [From Reglan] AdvReac Itching Verified 09/02/21 15:58 Review of Systems ROS Statement: Those systems with pertinent positive or pertinent negative responses have been documented in the HPI. ROS Other: All systems not noted in ROS Statement are negative. Past Medical History Past Medical History: No Reported History Additional Past Medical History / Comment(s): Other HX: Hep C, sciatica, MRSA left arm 2014, heroin abuse, restless leg syndrome History of Any Multi-Drug Resistant Organisms: MRSA Date of last positivie culture/infection: 05/06/2014 MDRO Source:: Left Elbow Past Surgical History: Cholecystectomy Additional Past Surgical History / Comment(s): needle removed from right arm 2012 Past Anesthesia/Blood Transfusion Reactions: No Reported Reaction Additional Past Anesthesia/Blood Transfusion Reaction / Comment(s): Pt states she has never recieved blood. Past Psychological History: Anxiety, Depression Smoking Status: Current every day smoker Past Alcohol Use History: Rare Past Drug Use History: None Reported, Cocaine, Heroin, Marijuana, Methamphetamine - Past Family History Father Additional Family Medical History / Comment(s): Father is an alcoholic. Mother Additional Family Medical History / Comment(s): Mother is an alcoholic General Exam Limitations: no limitations General appearance: alert, anxious Head exam: Present: atraumatic, normocephalic, normal inspection Eye exam: Present: normal appearance, PERRL, EOMI. Absent: scleral icterus, conjunctival injection, periorbital swelling ENT exam: Present: mucous membranes moist, other (left TM is erythematous and injected) Neck exam: Present: normal inspection. Absent: tenderness, meningismus, lymphadenopathy Respiratory exam: Present: normal lung sounds bilaterally. Absent: respiratory distress, wheezes, rales, rhonchi, stridor Cardiovascular Exam: Present: normal rhythm, tachycardia, normal heart sounds. Absent: systolic murmur, diastolic murmur, rubs, gallop, clicks GI/Abdominal exam: Present: soft, normal bowel sounds. Absent: distended, tenderness, guarding, rebound, rigid Extremities exam: Present: normal inspection, full ROM, normal capillary refill. Absent: tenderness, pedal edema, joint swelling, calf tenderness Back exam: Present: normal inspection Neurological exam: Present: alert, oriented X3, CN II-XII intact Psychiatric exam: Present: normal affect, normal mood Skin exam: Present: warm, dry, intact, normal color. Absent: rash Course Vital Signs 09/02/21 09/02/21 15:12 17:25 Temperature 98 F 98 F Pulse Rate 136 H 110 H Respiratory 20 20 Rate Blood Pressure 117/84 121/80 O2 Sat by Pulse 95 95 Oximetry Medical Decision Making - Medical Decision Making Upon arrival patient was placed in room 17. A thorough history and physical exam was performed. IV had been established. She was given 2 mg of Ativan IV. Requested a urine sample which the patient is unable to provide. She is watched in the emergency department for 2 hours without signs of opiate overdose. Patient resting much more comfortably and found sleeping. She'll be discharged home. She rest to stop using illicit drugs. Follow up with her doctor in 4 days and return for any new or worsening symptoms. Patient was discharged home in stable condition Disposition Clinical Impression: Methamphetamine abuse, Opiate abuse, continuous, Left otitis media Disposition: HOME SELF-CARE Condition: Stable Instructions (If sedation given, give patient instructions): Adult Overdose (ED) Additional Instructions: I recommend you stop using illegal drugs. Follow up with your doctor. Return for any new or worsening symptoms. Prescriptions: Amoxicillin 875 mg PO Q12HR #20 tablet Is patient prescribed a controlled substance at d/c from ED?: No Referrals: None,Stated [Primary Care Provider] - 1-2 days Time of Disposition: 17:04
[2021-09-02 17:25] VITALS: BP 121/80; PULSE 110
== END 2021-09-02 17:24 | disposition home or self-care (01) ==
LOC: EC 15:08
DX: H66.92 Otitis media, unspecified, left ear (principal); F11.10 Opioid abuse, uncomplicated; F15.10 Other stimulant abuse, uncomplicated; F17.200 Nicotine dependence, unspecified, uncomplicated; Z88.5 Allergy status to narcotic agent; Z88.8 Allergy status to other drugs, medicaments and biological substances
CPT/HCPCS: 99284; 96374; J2060

== ENCOUNTER 2022-02-02 21:46 | Emergency (ER) | payer OTHER ==
[2022-02-02 21:54] VITALS: BP 108/73; PULSE 93; RESP 18; TEMP 98.4
[2022-02-02] MEDS ORDERED: PROCHLORPERAZINE 5 MG TAB PO STA (22:11)
[2022-02-02] MEDS ORDERED: KETOROLAC 15 MG/ML 1 ML VIAL IM STA (22:11)
--- NOTE | 2022-02-02 22:11 | ED ---
Abdominal Pain HPI - General Chief Complaint: Abdominal Pain Stated Complaint: Left sided pain Time Seen by Provider: 02/02/22 22:09 Source: patient, RN notes reviewed, old records reviewed Mode of arrival: ambulatory Limitations: no limitations - History of Present Illness Initial Comments: This is a 37-year-old female presents today for evaluation of left-sided abdominal pain left flank pain. Patient has some mild shortness of breath. Patient has persistent symptoms, patient since he started a few days ago patient may have been around someone sick or may have kidney stones that she has history of kidney stones. Trauma noted. Patient has no other complaints MD Complaint: abdominal pain, flank pain -: days(s) Location: LUQ, L flank Radiation: LUQ, L flank Migration to: LUQ, LLQ Severity: moderate Severity scale (1-10): 7 Quality: stabbing, aching Consistency: constant Improves With: nothing Worsens With: nothing Associated Symptoms: denies other symptoms Treatments Prior to Arrival: other (0) - Related Data Home Medications Medication Instructions Recorded Confirmed Mirtazapine 15 mg PO HS 09/02/21 09/02/21 QUEtiapine [SEROquel] 50 mg PO DAILY 09/02/21 09/02/21 QUEtiapine [SEROquel] 100 mg PO HS 09/02/21 09/02/21 busPIRone HCL 15 mg PO BID 09/02/21 09/02/21 Previous Rx's Medication Instructions Recorded Amoxicillin 875 mg PO Q12HR #20 tablet 09/02/21 Allergies Allergy/AdvReac Type Severity Reaction Status Date / Time morphine Allergy Unknown Rash/Hives Verified 02/02/22 21:54 metoclopramide [From Reglan] AdvReac Itching Verified 02/02/22 21:54 Review of Systems ROS Statement: Those systems with pertinent positive or pertinent negative responses have been documented in the HPI. ROS Other: All systems not noted in ROS Statement are negative. Past Medical History Past Medical History: No Reported History Additional Past Medical History / Comment(s): Other HX: Hep C, sciatica, MRSA left arm 2014, heroin abuse, restless leg syndrome History of Any Multi-Drug Resistant Organisms: MRSA Date of last positivie culture/infection: 05/06/2014 MDRO Source:: Left Elbow Past Surgical History: Cholecystectomy Additional Past Surgical History / Comment(s): needle removed from right arm 2013 Past Anesthesia/Blood Transfusion Reactions: No Reported Reaction Additional Past Anesthesia/Blood Transfusion Reaction / Comment(s): Pt states she has never recieved blood. Past Psychological History: Anxiety, Depression Smoking Status: Current every day smoker Past Alcohol Use History: Rare Past Drug Use History: Cocaine, Heroin, Marijuana, Methamphetamine - Past Family History Father Additional Family Medical History / Comment(s): Father is an alcoholic. Mother Additional Family Medical History / Comment(s): Mother is an alcoholic General Exam Limitations: no limitations General appearance: alert, in no apparent distress Head exam: Present: atraumatic, normocephalic, normal inspection Eye exam: Present: normal appearance, PERRL, EOMI. Absent: scleral icterus, conjunctival injection, periorbital swelling ENT exam: Present: normal exam, mucous membranes moist Neck exam: Present: normal inspection. Absent: tenderness, meningismus, lymphadenopathy Respiratory exam: Present: normal lung sounds bilaterally. Absent: respiratory distress, wheezes, rales, rhonchi, stridor Cardiovascular Exam: Present: regular rate, normal rhythm, normal heart sounds. Absent: systolic murmur, diastolic murmur, rubs, gallop, clicks GI/Abdominal exam: Present: soft, normal bowel sounds. Absent: distended, tenderness, guarding, rebound, rigid Extremities exam: Present: normal inspection, full ROM, normal capillary refill. Absent: tenderness, pedal edema, joint swelling, calf tenderness Back exam: Present: normal inspection Neurological exam: Present: alert, oriented X3, CN II-XII intact Psychiatric exam: Present: normal affect, normal mood Skin exam: Present: warm, dry, intact, normal color. Absent: rash Course Vital Signs 02/02/22 21:52 Temperature 98.4 F Pulse Rate 93 Respiratory 18 Rate Blood Pressure 108/73 O2 Sat by Pulse 98 Oximetry - Reevaluation(s) Reevaluation #1: 02/02/22 Medical record is reviewed Patient symptoms are improved here in the ER Patient informed of results and questions answered Medical Decision Making - Medical Decision Making 37 female DF for evaluation of abdominal pain flank pain. No acute cause found for symptoms. Patient does have evidence of pneumonia left-sided can be referred pain. Patient was treated for outpatient pneumonia and can be discharged home - Lab Data Lab Results 02/02/22 02/02/22 Range/Units 23:00 23:00 Urine Color Yellow Urine Appearance Cloudy H (Clear) Urine pH 6.0 (5.0-8.0) Ur Specific Jones 1.023 (1.001-1.035) Urine Protein Negative (Negative) Urine Glucose (UA) Negative (Negative) Urine Ketones Negative (Negative) Urine Blood Negative (Negative) Urine Nitrite Negative (Negative) Urine Bilirubin Negative (Negative) Urine Urobilinogen 6.0 (<2.0) mg/dL Ur Leukocyte Esterase Small H (Negative) Urine RBC 6 H (0-5) /hpf Urine WBC 6 H (0-5) /hpf Ur Squamous Epith Cells 5 H (0-4) /hpf Calcium Oxalate Crystal Few H (None) /hpf Urine Bacteria Rare H (None) /hpf Hyaline Casts 1 (0-2) /lpf Urine Mucus Many H (None) /hpf Urine HCG, Qual Not Detected (Not Detectd) - Radiology Data Radiology results: report reviewed (CT head and pelvis is positive for left- sided infiltrate and effusion), image reviewed Disposition Clinical Impression: Abdominal pain, Left flank pain, Pneumonia, Hepatitis Disposition: HOME SELF-CARE Condition: Good Instructions (If sedation given, give patient instructions): Abdominal Pain (ED) Is patient prescribed a controlled substance at d/c from ED?: No Referrals: None,Stated [Primary Care Provider] - 1-2 days Time of Disposition: 22:50
[2022-02-02] MEDS ORDERED: traMADol 50 MG STARTER PACK 3 TAB BTL PO STA (22:29)
[2022-02-02] MEDS ORDERED: IBUPROFEN 600 MG STARTER PACK 4 TAB BTL PO STA (22:29)
--- NOTE | 2022-02-03 05:00 | CT ---
EXAMINATION TYPE: CT abdomen pelvis wo con DATE OF EXAM: 02/02/2022 COMPARISON: 12/29/2016 HISTORY: left flank pian x3 weeks CT DLP: 399.4 mGycm Automated exposure control for dose reduction was used. Images obtained from the diaphragm to the floor the pelvis with no contrast. There is a moderate left pleural effusion. There is left basilar infiltrate and atelectasis. Heart si ze is normal. No pericardial effusion. There are clips from cholecystectomy. Liver spleen stomach tre ear intact. Liver is enlarged and measures 20.7 cm. The bile ducts are not dilated. There are clips f rom cholecystectomy. No evidence of pancreatic mass. There is no adrenal mass. Kidneys have normal size. No hydronephrosis. There are scattered 1 to 2 mm calculi in both kidneys. No evidence of solid renal mass. No retroperitoneal adenopathy. The bladder distends smoothly. No inguinal hernia. No free fluid in the pelvis. Uterus is anteverted. The lumbar vertebrae have normal alignment. No compression fracture. Disc spaces are normal. Posterio r elements are intact with no compression fracture. The hip joints appear normal. Bony pelvis is inta ct. No evidence of a pelvic mass. Appendix is posterior and lateral and appears normal. There is no mesenteric edema. No ascites or free air. No bowel obstruction. IMPRESSION: Nonobstructing multiple small renal calculi. There is improvement in the splenomegaly compared to old exam. Spleen measures 12.2 cm and previous exam measures 13.8 cm. There is left pleural effusion and left lower lobe infiltrate and atelectasis. There is clearing of t he right pleural effusion compared to old exam. Left pleural fluid slightly increased. Left lower lob e infiltrate increased. There is improvement in the hepatomegaly compatible old exam. Liver measures 22.5 cm on previous exam and now measures 20.7 cm.
[2022-02-03 06:09] LABS: Appearance,Urine Cloudy (Clear); Bacteria,Urine Rare /hpf; Bilirubin,Urine Negative (Negative); Blood,Urine Negative (Negative); Calcium Oxalate Crystals,Urine Few /hpf; Color,Urine Yellow; Glucose,Urine (UA) Negative (Negative); Hyaline Casts,Urine 1 /lpf (0-2); Ketones,Urine Negative (Negative); Leukocyte Esterase,Urine Small (Negative); Mucus,Urine Many /hpf; Nitrite,Urine Negative (Negative); Protein,Urine Negative (Negative); RBC,Urine 6 /hpf (0-5); Specific Gravity,Urine 1.023 (1.001-1.035); Squamous Epithelial Cell,Urine 5 /hpf (0-4); WBC,Urine 6 /hpf (0-5)
== END 2022-02-03 01:15 | disposition home or self-care (01) ==
LOC: EC 21:46
DX: R10.32 Left lower quadrant pain (principal); J18.9 Pneumonia, unspecified organism; K75.9 Inflammatory liver disease, unspecified; F41.9 Anxiety disorder, unspecified; F32.A Depression, unspecified; F17.200 Nicotine dependence, unspecified, uncomplicated; F14.90 Cocaine use, unspecified, uncomplicated; F11.90 Opioid use, unspecified, uncomplicated; F15.10 Other stimulant abuse, uncomplicated; F12.90 Cannabis use, unspecified, uncomplicated; Z88.8 Allergy status to other drugs, medicaments and biological substances
CPT/HCPCS: 81001; 81025; 74176; 99284; 96372; S0183; J1885